=== PATIENT | female | born 1970 | race Caucasian/White ===

== ENCOUNTER 2020-03-17 15:45 | Outpatient (CLI) | payer OTHER, SELFPAY ==
--- NOTE | ~2020-03-17 | MM_ITS ---
EXAMINATION: MM screening [facility] BI w francia HISTORY: Screening mammogram TECHNIQUE: Craniocaudal and mediolateral oblique 3-D tomosynthesis images were obtained and synthetic 2-D images were generated. CAD analysis was submitted and interpreted. COMPARISON: 02/17/2018, 12/14/2016, 10/30/2015 bilateral digital screening mammogram examinations BREAST PARENCHYMAL COMPOSITION: The breasts are heterogeneously dense, which may obscure small masses . FINDINGS: There is no evidence of suspicious mass, calcification, or architectural distortion to sugg est malignancy in either breast. There has been no suspicious interval change. IMPRESSION: 1. No mammographic evidence of malignancy. 2. Recommend routine screening mammography in one year. BI-RADS Category 1: Negative Reviewed, dictated and finalized at location A.
== END 2020-03-17 15:46 | disposition home or self-care (01) ==
LOC: ANHIMG 15:47
PROVIDERS: PCP Family Medicine; Visit Provider Obstetrics & Gynecology
DX: Z12.31 Encounter for screening mammogram for malignant neoplasm of breast (principal)
CPT/HCPCS: 77063; 77067

== ENCOUNTER 2021-05-12 07:29 | Outpatient (CLI) | payer OTHER, SELFPAY ==
--- NOTE | ~2021-05-12 | MM_ITS ---
EXAMINATION: MM screening [facility] BI w francia HISTORY: Screening mammogram TECHNIQUE: Craniocaudal and mediolateral oblique 3-D tomosynthesis images were obtained and synthetic 2-D images were generated. CAD analysis was submitted and interpreted. COMPARISON: 03/17/2020, 02/13/2018, 12/14/2016 bilateral screening mammogram examinations BREAST PARENCHYMAL COMPOSITION: There are scattered areas of fibroglandular density. FINDINGS: Stable circumscribed benign-appearing right upper outer quadrant intramammary lymph nodes. There is no evidence of suspicious mass, calcification, or architectural distortion to suggest malign veronica in either breast. There has been no suspicious interval change. IMPRESSION: 1. No mammographic evidence of malignancy. 2. Recommend routine screening mammography in one year. BI-RADS Category 2: Benign finding(s). Reviewed, dictated and finalized at location A. LTALK DEVELOPER
== END 2021-05-12 07:30 | disposition home or self-care (01) ==
LOC: ANHIMG 07:33
PROVIDERS: PCP Nurse Practitioner; Visit Provider Obstetrics & Gynecology
DX: Z12.31 Encounter for screening mammogram for malignant neoplasm of breast (principal)
CPT/HCPCS: 77063; 77067

== ENCOUNTER 2022-08-06 08:02 | Emergency (ER) | payer OTHER, SELFPAY ==
[2022-08-06 08:11] VITALS: BP 113/88; PULSE 111; RESP 16; TEMP 37.1; O2SAT 97
--- NOTE | 2022-08-06 08:19 | ED.URI ---
HPI - URI/Sore Throat General Chief Complaint: Upper Respiratory Infection Stated Complaint: congestion, cough,sinus pressure,fever Time Seen by Provider: 08/06/22 08:20 Source: patient and RN notes reviewed Mode of arrival: ambulatory Limitations: no limitations History of Present Illness HPI Narrative: 51-year-old female presented for complaint of cough for 5 days. She endorses last night she started with sinus pressure and congestion, and fever up to 101.5 this morning. She states the cough is nonproductive, croupy, and endorses left rib pain with coughing. She endorses occasional shortness of breath only related to coughing spells. She denies dizziness, fatigue, wheezing, nausea, vomiting, diarrhea. He is taking Delsym, ibuprofen, and aches for symptoms. She endorses sick contacts last week. Has tested negative x3 for covid at home. MD elicited complaint: cough Related Data Allergies Allergy/AdvReac Type Severity Reaction Status Date / Time Penicillins Allergy Unknown HIVES/SWELL Verified 08/06/22 08:11 ING Sulfa (Sulfonamide Allergy Unknown HIVES/SWELL Verified 08/06/22 08:11 Antibiotics) ING MACROLIDES AdvReac Unknown Unknown Uncoded 08/06/22 08:11 Review of Systems Review of Systems: CONSTITUTIONAL: Denies malaise, chills, sweats EYES: Denies visual changes, redness, or discharge ENT: Reports rhinorrhea, congestion, sinus pain, denies otalgia, sore throat CARDIOVASCULAR: Denies chest pain, palpitations, edema RESPIRATORY: Reports cough, post nasal drainage. Denies dyspnea GASTROINTESTINAL: Denies abdominal pain, nausea, vomiting, diarrhea SKIN: Denies rash or itching PMFSH Past Medical History Medical History Hearing impaired Hyperlipidemia Hypothyroidism Surgical History Surgical History History of repair of ACL Family History Family History Grandparent Cancer of tongue Diabetes mellitus Heart disease Alcohol abuse Father Diabetes mellitus Heart disease Hypertension Mother Hypertension Social History Social History Smoking status: Never smoker Second hand tobacco smoke exposure: No Alcohol intake: current Drinks per week: 1 Substance use: never Substance use type: does not use Living arrangements: with family Occupation/Education: occupation Gender identity (if verbalized by the patient): Female Sexual Orientation (if Verbalized by the Patient): Straight or Heterosexual Spiritual care concerns: Yes (Patient would be ok with talking.) Agree to blood products: Yes Exam Narrative: GENERAL: Ill-appearing, nontoxic EYES: conjunctivae clear ENT: Mucous membranes moist. Oropharynx erythematous without lesions or exudate NECK: Supple. No lymphadenopathy CHEST: Clear to auscultation, breath sounds equal. No wheezing, rhonchi, rales, or stridor. No respiratory distress, speaks in full sentences. ABD: Soft flat nontender HEART: Regular rate and rhythm. No murmur heard. SKIN: Warm, dry, no rash. MUSC: Ribs nontender with palpation Course Course Emergency Course: Patient is aware of diagnosis, understands and agrees to treatment plan. Anticipatory guidance given. Patient agrees to follow-up as directed and is aware of reasons to seek care at the emergency department. Portions of this record may have been created with voice recognition software Level of Care: Express Care Visit Vital Signs Vital signs: Vital Signs Temperature 98.7 F 08/06/22 08:11 Pulse Rate 111 H 08/06/22 08:11 Respiratory Rate 16 08/06/22 08:11 Blood Pressure 113/88 08/06/22 08:11 Pulse Oximetry 97 08/06/22 08:11 Temperature 98.7 F 08/06/22 08:11 Pulse Rate 111 H 08/06/22 08:11 Respiratory Rate 16 08/06/22 08:11 Blood Pressure 11
== END 2022-08-06 08:32 | disposition home or self-care (01) ==
PROVIDERS: Emergency Provider Nurse Practitioner Family
DX: J40 Bronchitis, not specified as acute or chronic (principal); E78.5 Hyperlipidemia, unspecified; E03.9 Hypothyroidism, unspecified
CPT/HCPCS: 99213; G0463

== ENCOUNTER 2023-04-13 14:16 | Outpatient (CLI) | payer OTHER, SELFPAY ==
--- NOTE | ~2023-04-13 | MM_ITS ---
EXAMINATION: MM screening [facility] BI w francia HISTORY: Screening mammogram TECHNIQUE: Craniocaudal and mediolateral oblique 3-D tomosynthesis images were obtained and synthetic 2-D images were generated. CAD analysis was submitted and interpreted. COMPARISON: 05/12/2021, 03/17/2020, 02/17/2018 BREAST PARENCHYMAL COMPOSITION:There are scattered areas of fibroglandular density. FINDINGS: Stable circumscribed mass at the lower, subareolar left breast. No suspicious mass, calcifi cation, or architectural distortion are identified in either breast to suggest malignancy. There has been no suspicious interval change. IMPRESSION: No mammographic evidence of malignancy. Recommend routine screening mammography in one year. BI-RADS Category 2: Benign finding(s). Reviewed, dictated and finalized at [facility].
== END 2023-04-13 14:17 | disposition home or self-care (01) ==
LOC: ANHIMG 14:20
PROVIDERS: PCP Nurse Practitioner; Visit Provider Obstetrics & Gynecology
DX: Z12.31 Encounter for screening mammogram for malignant neoplasm of breast (principal)
CPT/HCPCS: 77063; 77067

== ENCOUNTER 2024-06-11 07:22 | Outpatient (CLI) | payer BC, SELFPAY ==
--- NOTE | ~2024-06-11 | MM_ITS ---
EXAMINATION: MM screening [facility] BI w francia HISTORY: Screening TECHNIQUE: Craniocaudal and mediolateral oblique 3-D tomosynthesis images were obtained and synthetic 2-D images were generated. CAD analysis was submitted and interpreted. COMPARISON: Comparison to multiple prior studies sequentially, with oldest reviewed study dated 10/29. BREAST PARENCHYMAL COMPOSITION: Not dense: There are scattered areas of fibroglandular density. FINDINGS: There is a focal asymmetry in the lower inner quadrant of the right breast anteriorly. The left breast is stable without evidence for malignancy. IMPRESSION: 1. Right breast asymmetry. 2. Additional mammographic views and possible breast ultrasound are recommended. BI-RADS Category 0: Incomplete: Needs additional imaging evaluation. Reviewed, dictated and finalized at location B. UIT CLERK IMPRESSION: 1. Right breast asymmetry. 2. Additional mammographic views and possible breast ultrasound are recommended . BI-RADS Category 0: Incomplete: Needs additional imaging evaluation.
--- OUTSIDE RECORDS SUMMARY | 2024-06-16 17:15 | XMS_ITS | Encounter Summary ---
Author Organization [facility] Address [address] [place] [address]. [place], [place] [id number] [place] [address] Care Team Providers Care Cloth Dye Range Operator Name Role Phone Saumya Wells NP Primary Care Provider [phone] [phone] Encounter Details Date Type Department Care Team (Late st Contact Info) Description 06/05/2024 7:30 AM COMPUTER DESIGNER Laboratory Only [facility] Medical Group Family Medicine [facility] [address] [facility] [address] [place] [address] Saumya Wells, WHIT[place] [address] [place] [address] Social History Tobacco Use Types Packs/Day Years Used Date Smoking Tobacco: Never Smokeless Tobacco: Never Alcohol Use Standard Drinks/Week Comments Not Currently 1 (1 standard drink = 0.6 oz pur e alcohol) Not every week PHQ-2 Answer Date Recorded Patient Health Questionnaire-2 Score 2 05/09/2024 Comments No Sex and Gender Information Value Date Recorded Sex Assigned at Not on file Legal Sex Female 9:29 AM COMPUTER DESIGNER Gender Identity Not on file Sexual Orientation Not on file documented as of this encounter Plan of Treatment Not on file documented as of this encounter Procedures Procedure Name Priority Date/Time Associated Diagnosis Comments VENIPUNC ARM DRAW Routine 06/05/2024 7:2 7 AM COMPUTER DESIGNER Screening for endocrine, metabolic and immunity disorder Encounter for wellness examination in adult Hyperlipidemia, unspecified hyperlipidemia type TSH W/REFLEX Routine 06/05/2024 7:25 AM COMPUTER DESIGNER Hypothyroidism, unspecified type COMPREHENSIVE METABOLIC PANEL Routine 06/05/2024 7:25 AM COMPUTER DESIGNER Screening for endocrine, metabolic and immunity disorder LIPID PANEL Routine 06/05/2024 7:25 AM COMPUTER DESIGNER Hyperlipidemia, unspecified hyperlipidemia type CBC W/DIFF AUTOMATED Routine 06/05/2024 7:25 AM COMPUTER DESIGNER Screening for endocrine, metabolic and immunity disorder THYROXINE, FREE (FT4) Routine 06/05/2024 7:25 AM COMPUTER DESIGNER documented in this encounter Results * THYROXINE, FREE (FT4) (06/05/2024 7:25 AM COMPUTER DESIGNER) Pathologist [facility] [place] FREE T4 0.97 0.76 - 1.46 NG/DL 06/05/2024 3:53 PM COMPUTER DESIGNER [facility] 06/05/2024 7:25 AM COMPUTER DESIGNER us Saumya Wells OPERATOR CONTROL ROOM LABORATORY Final Res ult [facility] [address] [place] [address], * (ABNORMAL) CBC W/DIFF AUTOMATED (06/05/2024 7:25 AM COMPUTER DESIGNER) [facility] WBC 6.90 4.00 - 10.80 x10'3/uL 06/05/2024 2:49 PM COMPUTER DESIGNER [facility] RBC 4.71 4.10 - 5.40 x10'6/uL 06/05/2024 2:49 PM COMPUTER DESIGNER [facility] HGB 14.5 12.0 - 16.0 G/DL 06/05/2024 2:49 PM COMPUTER DESIGNER [facility] HCT 42.9 36.0 - 47.0 % 06/05/2024 2:49 PM COMPUTER DESIGNER [facility] MCV 91.1 78.0 - 100.0 FL 06/05/2024 2:49 PM [facility] MCH 30.8 27.0 - 31.0 PG 06/05/2024 2:49 PM [facility] MCHC 33.8 33.0 - 36.0 G/DL 06/05/2024 2:49 PM [facility] RDW 12.7 11.5 - 14.5 % 06/05/2024 2:49 PM [facility] PLT 163 150 - 350 x10'3/uL 06/05/2024 2:49 PM [facility] MPV 11.7(H) 7.4 - 10.4 FL 06/05/2024 2:49 PM [facility] DIFFERENTIAL TYPE AUTOMATED DIFFERENTIAL 06/05/2024 2:49 PM [facility] NEUTROPHILS % 53.6 % 06/05/2024 2:49 PM [facility] LYMPHOCYTES % 37.0 % 06/05/2024 2:49 PM [facility] MONOCYTES % 6.8 % 06/05/2024 2:49 PM [facility] EOSINOPHILS % 2.2 % 06/05/2024 2:49 PM [facility] BASOPHILS % 0.3 % 06/05/2024 2:49 PM [facility] IMMATURE GRANS % 0.1 % 06/05/2024 2:49 PM [facility] ABS. NEUTROPHILS 3.70 1.60 - 8.30 x10'3/uL 06/05/2024 2:49 PM [facility] ABS. LYMPHOCYTES 2.55 0.80 - 4.70 x10'3/uL 06/05/2024 2:49 PM [facility] ABS. MONOCYTES 0.47 0.00 - 1.50 x10'3/uL 06/05/2024 2:49 PM [facility] ABS. EOSINOPHILS 0.15 0.00 - 0.40 x10'3/uL 06/05/2024 2:49 PM COMPUTER DESIGNER [facility] ABS. BASOPHILS 0.02 0.00 - 0.20 x10'3/uL 06/05/2024 2:49 PM COMPUTER DESIGNER [facility] ABS. IMMATURE GRANULOCYTES 0.01 0.00 - 0.03 x10'3/uL 06/05/2024 2:49 PM COMPUTER DESIGNER [facility] 06/05/2024 7:25 AM COMPUTER DESIGNER us Saumya Wells OPERATOR CONTROL ROOM LABORATORY Final Res ult [facility] [place] [address] [place] [address], * (ABNORMAL) COMPREHENSIVE METABOLIC PANEL (06/05/2024 7:25 AM COMPUTER DESIGNER) [facility] SODIUM S/P/B 143 136 - 145 MMOL/L 06/05/2024 2:54 PM COMPUTER DESIGNER [facility] POTASSIUM S/P/B 4.3 3.5 - 5.1 MMOL/L 06/05/2024 2:54 PM COMPUTER DESIGNER [facility] CHLORIDE S/P/B 106 98 - 107 MMOL/L 06/05/2024 2:54 PM COMPUTER DESIGNER [facility] CO2 31.5 21 - 32 MMOL/L 06/05/2024 2:54 PM COMPUTER DESIGNER [facility] GLUCOSE 99 70 - 99 MG/DL 06/05/2024 2:54 PM COMPUTER DESIGNER [facility] BUN 16 7 - 18 MG/DL 06/05/2024 2:54 PM COMPUTER DESIGNER [facility] CREATININE S/P/B 0.90 0.55 - 1.02 MG/DL 06/05/2024 2:54 PM COMPUTER DESIGNER [facility] CALCIUM S/P/B 9.1 8.4 - 10.5 MG/DL 06/05/2024 2:54 PM [facility] [place] BILIRUBIN TOTAL S/P/B 0.5 0.2 - 1.0 MG/DL 06/05/2024 2:54 PM [facility] ALKALINE PHOSPHATASE S/P/B 97 41 - 108 U/L 06/05/2024 2:54 PM [facility] AST 26 15 - 37 U/L 06/05/2024 2:54 PM [facility], [place] ALT 46 14 - 59 U/L 06/05/2024 2:54 PM [facility] TOTAL PROTEIN S/P/B 6.7 6.4 - 8.2 G/DL 06/05/2024 2:54 PM [facility] ALBUMIN S/P/B 3.7 3.4 - 5.0 G/DL 06/05/2024 2:54 PM [facility] ANION GAP 5.5 5 - 15 MMOL/L 06/05/2024 2:54 PM [facility] Comment:REFERENCE RANGE NOT ESTABLISHED OSMOLALITY (CALC) 297 MOSM/KG 024 2:54 PM [facility] Comment:REFERENCE RANGE NOT ESTABLISHED GFR ESTIMATE 76(L) >90 ML/MIN/1. 73 M2 06/05/2024 2:54 PM [facility] GFR NOTES GFR REFERENCE S: 06/05/2024 2:54 PM [facility] Comment: THE ESTIMATED GFR IS CALCULATED USING THE 2020 CKD-EPI EQUATION. THE FOLLOWING CATEGORIES FOR GRADING RENAL FUNCTION ARE RECOMMENDED BY THE INTERNATIONAL SOCIETY OF NEPHROLOGY (KDIGO 2012 CLINICAL PRACTICE GUIDELINE). G1,NORMAL OR HIGH: >89 ml/min/1.73 m2 G2,MILDLY DECREASED: 60-89 ml/min/1.73 m2 G3A,MILDLY TO MODERATELY DECREASED: 45-59 ml/min/1.73 m2 G3B,MODERATELY TO SEVERELY DECREASED: 30-44 ml/min/1.73 m2 G4,SEVERELY DECREASED: 15-29 ml/min/1.73 m2 G5,KIDNEY FAILURE: <15 ml/min/1.73 m2 06/05/2024 7:25 AM COMPUTER DESIGNER Saumya Wells OPERATOR CONTROL ROOM LABORATORY Final Res ult Performing Organization Address City/[facility]/ZIP Co de Phone Number [facility] [address] [place] [address], [place] [phone] * (ABNORMAL) LIPID PANEL (06/05/2024 7:25 AM COMPUTER DESIGNER) CHOLESTEROL 180 <200 MG/DL 06/05/2024 2:54 PM COMPUTER DESIGNER [facility] TRIGLYCERIDES 159(H) <150 MG/DL 06/05/2024 2:54 PM COMPUTER DESIGNER [facility] HDL 56 >40 MG/DL 06/05/2024 2:54 PM COMPUTER DESIGNER [facility] LDL-C 92 <100 MG/DL 06/05/2024 2:54 PM COMPUTER DESIGNER [facility] VLDL CALCULATION 32(H) 5 - 28 MG/DL 06/05/2024 2:54 PM COMPUTER DESIGNER [facility] CHOL/HDL RATIO 3.2 0.0 - 4.0 06/05/2024 2:54 PM COMPUTER DESIGNER [facility] LDL/HDL 1.6 0.41 - 2.13 06/05/2024 2:54 PM COMPUTER DESIGNER [facility] NON HDL CHOLESTEROL 124 <140 MG/DL 06/05/2024 2:54 PM COMPUTER DESIGNER [facility] 06/05/2024 7:25 AM COMPUTER DESIGNER Saumya Wells OPERATOR CONTROL ROOM LABORATORY Final Res ult Performing Organization Address City/[facility]/ZIP Co de Phone Number [facility] [address] [place] [address], * (ABNORMAL) TSH W/REFLEX (06/05/2024 7:25 AM COMPUTER DESIGNER) TSH 3.882(H) 0.358 - 3.740 uIU/ML 06/05/2024 2:54 PM COMPUTER DESIGNER [facility] 06/05/2024 7:25 AM COMPUTER DESIGNER us Saumya Wells OPERATOR CONTROL ROOM LABORATORY Final Res ult -[facility] [address] [place] [address], documented in this encounter Visit Diagnoses Diagnosis Screening for endocrine, metabolic and immunity disorder- Primary Encounter for wellness examination in adult Hyperlipidemia, unspecified hyperlipidemia type Hypothyroidism, unspecified type documented in this encounter Additional Health Concerns Assessment Noted Time PHQ-9 Depression Total Score: 5 05/09/20 24 2:00 PM COMPUTER DESIGNER documented as of this encounter Care Teams Cloth Dye Range Operator Relationship Specialty Start Date End Date Saumya Wells NP [address] [place] [address] PCP - General NURSE PRACTITIONER 07/02/20 documented as of this encounter
--- OUTSIDE RECORDS SUMMARY | 2024-06-16 17:15 | XMS_ITS | Encounter Summary ---
Author Organization [facility] Address [address] [place] [address]. [place] [address] Care Team Providers Care Credit Resolution Representative Name Role Phone Saumya Wells NP Primary Care Provider [phone] Reason for Visit * Reason Comments Pathology (SCAN) Encounter Details Date Type Department Care Team ([facility] Contact Info) Description 04/23/2024 Scan HEALTH INFO SRVCS Scanned, Doc Med Group Pathology (SCAN) Social History Tobacco Use Types Packs/Day Years Used Date Smoking Tobacco: Never Smokeless Tobacco: Never Alcohol Use Standard Drinks/Week Comments Yes 1 (1 standard drink = 0.6 oz pur e alcohol) Not every week PHQ-2 Answer Date Recorded Patient Health Questionnaire-2 Score 2 05/09/2024 Comments No Sex and Gender Information Value Date Recorded Sex Assigned at Not on file Legal Sex Female 9:29 AM SEMICONDUCTOR TESTING GROUP LEADER Gender Identity Not on file Sexual Orientation Not on file documented as of this encounter Plan of Treatment Not on file documented as of this encounter Procedures Procedure Name Priority Date/Time Associated Diagnosis Comments OUTSIDE CYTOPATH CERV/VAG IN TERPRET (PAP) 04/23/2024 documented in this encounter Results * PAP SMEAR WITH HPV (04/23/2024) 04/23/2024 us Doc Med Group Scanned SCANNING Final Resu lt documented in this encounter Visit Diagnoses Not on filedocumented in this encounter Additional Health Concerns Assessment Noted Time PHQ-9 Depression Total Score: 3 04/28/20 23 8:27 AM CDT documented as of this encounter Care Teams Credit Resolution Representative Relationship Specialty Start Date End Date Saumya Wells NP [address] [place] [address] PCP - General NURSE PRACTITIONER 07/02/20 documented as of this encounter
--- OUTSIDE RECORDS SUMMARY | 2024-06-16 17:15 | XMS_ITS | Encounter Summary ---
Author Organization [facility] Address [address] [place] [address]. [place], [place] [id number] [place] [address] Care Team Providers Care Bladder Changer Name Role Phone Saumya Wells NP Primary Care Provider [phone] [phone] Encounter Details Date Type Department Care Team (Late st Contact Info) Description 02/22/2024 [email or web address] Message Enc [facility] Medical Group Family Medicine - [place] [address] [facility] [address] [place], [place] [address] Saumya Wells NP [address] [place], [place] [address] follow up on office visit tomorrow Social History Tobacco Use Types Packs/Day Years Used Date Smoking Tobacco: Never Smokeless Tobacco: Never Alcohol Use Standard Drinks/Week Comments Yes 1 (1 standard drink = 0.6 oz pur e alcohol) Not every week PHQ-2 Answer Date Recorded Patient Health Questionnaire-2 Score 2 04/28/2023 Comments No Sex and Gender Information Value Date Recorded Sex Assigned at Not on file Legal Sex Female 9:29 AM TRAVERSE ROD ASSEMBLER Gender Identity Not on file Sexual Orientation Not on file documented as of this encounter Plan of Treatment Not on file documented as of this encounter Visit Diagnoses Not on filedocumented in this encounter Additional Health Concerns Assessment Noted Time PHQ-9 Depression Total Score: 3 04/28/20 23 8:27 AM CDT documented as of this encounter Care Teams Bladder Changer Relationship Specialty Start Date End Date Saumya Wells NP [address] [place] [address] PCP - General NURSE PRACTITIONER 07/02/20 documented as of this encounter
--- OUTSIDE RECORDS SUMMARY | 2024-06-16 17:15 | XMS_ITS | Encounter Summary ---
Author Organization [facility] [place] Address [address] [place] [address]. [place], [place] [id number] [place] [address] Care Team Providers Care Regional Marketing Director Name Role Phone Saumya Wells NP Primary Care Provider [phone] Reason for Visit * Reason Comments Annual Encounter Details Date Type Department Care Team (Late st Contact Info) Description 04/28/2023 8:20 AM CDT Office Visit [facility] Family Medicine [facility] [address] [place] [id number] Saumya Wells, WHIT[place] [address] [place] [address] [id number] Annual Social History Tobacco Use Types Packs/Day Years [...] on file 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 Gender Identity Not on file Sexual Orientation Not on file documented as of this encounter Last Filed Vital Signs Vital Sign Reading Time Taken Comments Blood Pressure 123/78 04/28/2023 8:14 AM CDT Pulse 76 04/28/2023 8:14 AM CDT Temperature 36.6 ??C (97.9 ??F) 04/28/2023 8:14 AM CD T Respiratory Rate 18 04/28/2023 8:14 AM CDT Oxygen Saturation 98% 04/28/2023 8:14 AM CDT Inhaled Oxygen Concentration - - Weight 81.3 kg (179 lb 3.2 oz) 04/28/2023 8:14 A M CDT Height 157.5 cm (5' 2 ) 04/28/2023 8:14 AM CDT Body Mass Index 32.78 04/28/2023 8:14 AM CDT documented in this encounter Progress Notes * Saumya Wells NP - 04/28/2023 8:20 AM CDT Images from the original note were not included. Annual Health Maintenance Exam Encounter Date: 04/28/2023 Reason for Visit: Annual Health Maintenance Exam Annual History of Present Illness: Evelia Cedeno is a 52-year-old female with hx of hypothyroidism, hyperlipidemia, and anxiety and depression here for her annual exam. She reports doing well. She is going to begin HRT by her crime scene photographer to help with menopausal symptoms. Labs completed in March Reported Health: good Immunizations up to date: No. Due for Tdap Healthy Diet: Yes Regular Exercise: Yes Weight Concern: Yes Cancer Screening Up To Date: Yes follows with Dr. Wesley for her well women care. Up to date on mammogram and pap at this time. Is up to date on colon cancer screen Tobacco use: No Alcohol use: No Dental exam: Yes Eye exam: Yes ROS: Review of Systems Constitutional: Negative for chills, diaphoresis, fever, malaise/fatigue and weight loss. HENT: Negative for congestion, ear discharge, ear pain, hearing loss, nosebleeds, sinus pain, sore throat and tinnitus. Eyes: Negative for blurred vision, double vision, photophobia, pain, discharge and redness. Respiratory: Negative for cough, hemoptysis, sputum production, shortness of breath, wheezing and stridor. Cardiovascular: Negative for chest pain, palpitations, orthopnea, claudication, leg swelling and PND. Gastrointestinal: Negative for abdominal pain, blood in stool, constipation, diarrhea, heartburn, melena, nausea and vomiting. Genitourinary: Negative for dysuria, flank pain, frequency, hematuria and urgency. Musculoskeletal: Negative for back pain, falls, joint pain, myalgias and neck pain. Skin: Negative for itching and rash. Neurological: Negative for dizziness, tingling, tremors, sensory change, speech change, focal weakness, seizures, loss of consciousness, weakness and headaches. Endo/Heme/Allergies: Negative for environmental allergies and polydipsia. Does not bruise/bleed easily. Psychiatric/Behavioral: Negative for depression, hallucinations, memory loss, substance abuse and suicidal ideas. The patient is not nervous/anxious and does not have insomnia. Medications: Outpatient Medications Marked as Taking for the 04/28/23 encounter (Office Visit) with Saumya Wells NP Medication Sig Dispense Refill levothyroxine (SYNTHROID) 100 MCG tablet Take 1 tablet (100 mcg total) by mouth daily. 90 tablet 1 rosuvastatin (CRESTOR) 40 MG tablet Take 1 tablet (40 mg total) by mouth nightly at bedtime. 90 tablet 0 Allergies: Review of patient's allergies indicates: Allergen Reactions Penicillins Hives and Swelling Medical History: Past Medical History: Diagnosis Date Anxiety and depression Colon cancer screening 06/2020 negative cologuard repeat in 3 years H/O mammogram 05/12/2021 normal,repeat in 1 year, ordered by Dr. Galvez Hyperlipidemia Hypothyroidism Surgical History: Past Surgical History: Procedure Laterality Date ANTERIOR CRUCIATE LIGAMENT REPAIR 2011 Social History: Social History Tobacco Use Smoking status: Never Smokeless tobacco: Never Vaping Use Vaping Use: Never used Substance Use Topics Alcohol use: Yes Alcohol/week: 1.0 standard drink Types: 1 Standard drinks or equivalent per week Comment: Not every week Drug use: Never Family History: Family History Problem Relation Name Age of Onset Hypertension Mother RD Arthritis Mother RD Early Hearing Loss Mother RD Hypertension Father TK Hyperlipidemia Father TK Diabetes Father TK Heart Disease Father TK Diabetes Maternal Grandmother HF Heart Disease Maternal Grandmother HF Other (tongue cancer) Maternal Grandmother HF Cancer Maternal Grandmother HF Early Hearing Loss Maternal Grandmother HF Heart Disease Paternal Grandfather BF Alcohol Abuse Paternal Grandfather BF Drug Abuse Maternal Uncle RF Early Hearing Loss Maternal Uncle RF PE: Filed Vitals: 04/28/23 0814 BP: 123/78 Pulse: 76 Resp: 18 Temp: 97.9 ??F (36.6 ??C) TempSrc: Temporal SpO2: 98% Weight: 81.3 kg (179 lb 3.2 oz) Height: 1.575 m (5' 2 ) Physical Exam Constitutional: General: She is not in acute distress. Appearance: Normal appearance. She is well-developed. She is obese. She is not ill-appearing, toxic-appearing or diaphoretic. HENT: Head: Normocephalic and atraumatic. Right Ear: Hearing, tympanic membrane, ear canal and external ear normal. Left Ear: Hearing, tympanic membrane, ear canal and external ear normal. Nose: Nose normal. Mouth/Throat: Mouth: Mucous membranes are moist. Pharynx: Uvula midline. No oropharyngeal exudate or posterior oropharyngeal erythema. Eyes: General: Lids are normal. Lids are everted, no foreign bodies appreciated. No scleral icterus. Extraocular Movements: Extraocular movements intact. Pupils: Pupils are equal, round, and reactive to light. Neck: Thyroid: No thyromegaly. Vascular: No carotid bruit. Trachea: No tracheal deviation. Cardiovascular: Rate and Rhythm: Normal rate and regular rhythm. Pulses: Normal pulses. Heart sounds: Normal heart sounds. No murmur heard. Pulmonary: Effort: Pulmonary effort is normal. No respiratory distress. Breath sounds: Normal breath sounds. No wheezing or rales. Chest: Chest wall: No tenderness. Abdominal: General: Bowel sounds are normal. There is no distension. Palpations: Abdomen is soft. There is no mass. Tenderness: There is no abdominal tenderness. There is no guarding or rebound. Hernia: No hernia is present. Musculoskeletal: General: No tenderness or deformity. Cervical back: Normal range of motion and neck supple. No edema. Right lower leg: No edema. Left lower leg: No edema. Lymphadenopathy: Cervical: No cervical adenopathy. Skin: General: Skin is warm and dry. Capillary Refill: Capillary refill takes less than 2 seconds. Coloration: Skin is not pale. Findings: No erythema or rash. Neurological: General: No focal deficit present. Mental Status: She is alert and oriented to person, place, and time. Deep Tendon Reflexes: Reflexes are normal and symmetric. Psychiatric: Mood and Affect: Mood normal. Behavior: Behavior normal. Thought Content: Thought content normal. Judgment: Judgment normal. Screening forms: PHQ-9: PHQ-9: 03/31/2022 8:55 AM 04/28/2023 8:27 AM PHQ2/PHQ 9 DEPRESSION SCREEN QUESTIONAIRE Little interest or pleasure in doing things Several days Feeling down, depressed, or hopeless Several days Patient Health Questionnaire-2 Score 2 Trouble falling or staying asleep, or sleeping too much Not at all Feeling tired or having little energy Not at all Poor appetite or overeating Not at all Feeling bad about yourself - or that you are a failure or have let yourself or your family down Notat all Trouble concentrating on things, such as reading the newspaper or watching television Several days Moving or speaking so slowly that other people could have noticed? Or the opposite - being so fidgety or restless that you have been moving around a lot more than usual. Not at all Thoughts that you would be better off or hurting yourself in some way Not at all Patient Health Questionnaire-9 Score 3 How difficult have these problems made it for you to do your work, take care of things at home, or get along with other people? Somewhat difficult LITTLE INTEREST OR PLEASURE IN DOING THINGS 2-More than half the days FEELING DOWN, DEPRESSSED,OR HOPELESS 1-Several Days PHQ2 DEPRESSION TOTAL SCORE 3 TROUBLE FALLING OR STAYING ASLEEP OR SLEEPING TOO MUCH 2-More than half the days FEELING TIRED OR HAVING LITTLE ENERGY 2-More than half the days POOR APPETITE OR OVEREATING 1-Several Days FEELING BAD ABOUT YOURSELF 1-Several Days TROUBLE CONCENTRATING ON THINGS 2-More than half the days MOVING OR SPEAKING SO SLOWLY THAT OTHER PEOPLE COULD HAVE NOTICED 0-Not at All THOUGHTS THAT YOU WOULD BE BETTER OFF 0-Not at All DEPRESSION SCREENING TOTAL SCORE 11 IF YOU CHECKED OFF ANY PROBLEMS Somewhat difficult ANNABEL-7 (Generalized Anxiety Disorder) Screening 07/07/2020 2:20 PM 04/28/2023 8:28 AM ANNABEL-7 Feeling nervous, anxious, or on edge 1 Not being able to stop or control worrying 0 Worrying too much about different things 1 Trouble relaxing 0 Being so restless that it is hard to sit still 0 Becoming easily annoyed or irritable 2 Feeling afraid as if something awful might happen 0 ANNABEL-7 Total Score 4 How difficult have these problems made it for you to do your work, take care of things at home, or get along with other people? Somewhat difficult Feeling nervous, anxious and on edge 1 - several days Not being able to stop or control worrying 0 - not at all Worrying too much about different things 1 - several days Trouble Relaxing 1 - several days Being so restless that it's hard to sit still 0 - not at all Becoming easily annoyed or irritable 1 - several days Feeling afraid as if something awful might happen 1 - several days Total Score 5 If you checked off any problems, how difficult have those problems made it for you to do your work take care of things at home or get along with other people? somewhat difficult Diagnoses, Recommendations, and Plan 1. Annual physical exam 2. Postmenopausal symptoms 3. Hypothyroidism, unspecified type 4. Hyperlipidemia, unspecified hyperlipidemia type 5. Obesity (BMI 30-39.9) Encourage Tdap vaccination. Encourage Shingrix vaccination at local pharmacy. It is a two shot series. 2nd shot is 2-6 months after the first shot. 1. Medications/DME - Continue current medications. 2. Lab/Diagnostics - None. Already completed 3. Education - Current treatment discussed and patient education given as appropriate. 4. Referrals - None needed. 5. RTC - 1 year(s) Encourage following a low fat, low carb diet, encorperate whole foods such as fresh fruits and vegetables and whole grains into your diet, encourage 5 small meals per day. Avoid sugar-sweetened beverages, added sugars, processed meats, refined grains and oils or other processed foods. Encourage to get at least 150 minutes of moderate aerobic activity or 75 minutes of vigorous aerobic activity a week, or a combination of moderate and vigorous activity.Discussed routine labs, preventative screenings, vaccinations, blood pressure, weight at today's visit. Encourage getting dental exam every 6 months and a yearly eye exam or as instructed to do so. Encourage getting at least 8 hours of restful sleep per night. Encourage continual weight loss. SAUMYA WELLS NP 04/28/2023 documented in this encounter Plan of Treatment Not on file documented as of this encounter Visit Diagnoses Diagnosis Annual physical exam Routine general medical examination at a health care facility Postmenopausal symptoms Unspecified menopausal and postmenopausal disorder Hypothyroidism, unspecified type Hyperlipidemia, unspecified hyperlipidemia type Obesity (BMI 30-39.9) Obesity, unspecified documented in this encounter Additional Health Concerns Assessment Noted Time PHQ-9 Depression Total Score: 3 04/28/20 23 8:27 AM CDT documented as of this encounter Care Teams Regional Marketing Director Relationship Specialty Start Date End Date Saumya Wells NP [address] [place] [address] PCP - General NURSE PRACTITIONER 07/02/20 documented as of this encounter
--- OUTSIDE RECORDS SUMMARY | 2024-06-16 17:15 | XMS_ITS | Encounter Summary ---
Author Organization [facility] Address [address] [place] [address]. 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
--- OUTSIDE RECORDS SUMMARY | 2024-06-16 17:15 | XMS_ITS | Encounter Summary ---
Author Organization [facility] Address [address] [place] [address]. 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
--- OUTSIDE RECORDS SUMMARY | 2024-06-16 17:15 | XMS_ITS | Encounter Summary ---
Author Organization [facility] Address [address] [place] [address]. 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
--- OUTSIDE RECORDS SUMMARY | 2024-06-16 17:15 | XMS_ITS | Clinical Summary ---
Author Organization [facility] Address [address] [place] [address]. [place], [place] [id number] [place] [id number] Care Team Providers Care Clinical Admissions Manager Name Role Phone Saumya Wells NP Primary Care Provider [phone] Allergies Active Allergy Reactions Criticality Noted Date Comments Penicillins Hives,Swelling 07/07/2020 Medications levothyroxine (SYNTHROID) 100 MCG tabletIndications:H ypothyroidism, unspecified type Take 1 tablet (100 mcg total) by mouth daily. 90 tablet 1 4 Active rosuvastatin (CRESTOR) 40 MG tabletIndications:H yperlipidemia, unspecified hyperlipidemia type Take 1 tablet (40 mg total) by mouth nightly at bedtime. at bedtime 90 tablet 1 4 Active Active Problems Problem Noted Date Diagnosed Date Obesity (BMI 30-39.9) 04/28/2023 Assessment & Plan (05/09/2024 2:03 PM MANAGER UROLOGY): Encourage diet and lifestyle changes to assist with weight loss. Hyperlipidemia, unspecified hyperlipidemia type 07/07/2020 Overview (05/09/2024): Chronic condition. Currently taking Rosuvastatin 40 mg daily. Tolerates well without side effects. Assessment & Plan (05/09/2024 2:06 PM MANAGER UROLOGY): Chronic condition. Will recheck lipid panel to be sure lipids are within normal range. Encourage following a healthy well balance diet. Limit saturated and trans fats. Encourage to get plenty of lean meats in your diet and grilled fish. Recommend eating at least 2 servings of fruits and vegetables per day. Encourage to limit sugar, processed foods, and large amount of carbohydrates. Hypothyroidism, unspecified type 07/07/2020 Overview (05/09/2024): Chronic condition. Currently taking levothyroxine 100 mcg daily. Assessment & Plan (05/09/2024 2:04 PM MANAGER UROLOGY): Chronic condition. Will check TSH to be sure her current dose is appropirate. Last TSH level reviewed. Vitamin D deficiency 07/07/2020 Anxiety and depression 07/07/2020 Overview (05/09/2024): Stable. Doing ok. Has had increase stressors that shse feels is to be expected. Assessment & Plan (05/09/2024 2:08 PM MANAGER UROLOGY): Stable. Doing ok. PHQ-9 and ANNABEL-7 reviewed. Has had increase stressors that she feels is to be expected. She ill follow up in future if she feels further tx is necessary or not. Encounters Date Type Department Care Team Description 06/05/2024 7:30 AM MANAGER UROLOGY Laboratory Only [address] [place] [address] Saumya Wells NP 06/05/2024 Travel 05/10/[address] [place] [address] Saumya Wells NP Record Request 05/09/2024 1:20 PM MANAGER UROLOGY Office Visit [address] [place] [address] Saumya Wells NP Annual 05/09/2024 Travel 05/04/2024 MyChart Message Enc [address] [place] [address] Saumya Wells NP Flu shot 04/23/2024 Scan [facility] Scanned, [facility] (SCAN) 04/17/2024 Orders Only [address] [place] [address] Pooja Bingham MA 04/10/2024 MyChart Message Enc [facility] [address] [facility] [address] [place] [address] Mychart, [facility] Provider Refill from Last 3 Months Immunizations Name Administration Dates Next Due Fluzone (IIV3, Trivalent, 0. 5 ML Prefilled Syringe) 05/09/2024 Influenza Adult (Generic) 03/20/2023,,04/13/2018, 017,05/06/2014 Family History Medical History Relation Comments Diabetes Father Heart Disease Father Hyperlipidemia Father Hypertension Father Stroke Father TIA in mid 50s Alcohol Abuse Maternal Grandfather Cancer Maternal Grandmother Diabetes Maternal Grandmother Early Hearing Loss Maternal Grandmother Heart Disease Maternal Grandmother tongue cancer Maternal Grandmother Drug Abuse Maternal Uncle Early Hearing Loss Maternal Uncle Arthritis Mother Diabetes Mother Early Hearing Loss Mother Hypertension Mother Alcohol Abuse Paternal Grandfather Heart Disease Paternal Grandfather Relation Status Comments Father Maternal Grandfather Maternal Grandmother Maternal Uncle Mother Paternal Grandfather Social History Tobacco Use Types Packs/Day Years Used Date Smoking Tobacco: Never Smokeless Tobacco: Never Tobacco Cessation:Counseling Given: Not Answered Alcohol Use Standard Drinks/Week Comments Not Currently 1 (1 standard drink = 0.6 oz pur e alcohol) Not every week PHQ-2 Answer Date Recorded Patient Health Questionnaire-2 Score 2 05/09/2024 Comments No Sex and Gender Information Value Date Recorded Sex Assigned at Not on file Legal Sex Female 9:29 AM MANAGER UROLOGY Gender Identity Not on file Sexual Orientation Not on file Last Filed Vital Signs Vital Sign Reading Time Taken Comments Blood Pressure 133/80 05/09/2024 1:22 PM MANAGER UROLOGY Pulse 73 05/09/2024 1:22 PM MANAGER UROLOGY Temperature 37.6 ??C (99.6 ??F) 05/09/2024 1:22 PM CS T Respiratory Rate 16 05/09/2024 1:22 PM MANAGER UROLOGY Oxygen Saturation 96% 05/09/2024 1:22 PM MANAGER UROLOGY Inhaled Oxygen Concentration - - Weight 85.4 kg (188 lb 3.2 oz) 05/09/2024 1:22 P M MANAGER UROLOGY Height 157.5 cm (5' 2 ) 05/09/2024 1:22 PM MANAGER UROLOGY Body Mass Index 34.42 05/09/2024 1:22 PM MANAGER UROLOGY Plan of Treatment Health Maintenance Due Date Last Done Comments Cervical Cancer Screening Pap Smear (Age 30 to 64) Every 3 Years 1969 DTaP, Tdap and Td Vaccines (1 - Tdap) 1988 Hepatitis B Vaccines (1 of 3 - 19+ 3-dose series) 1988 Zoster Vaccines (1 of 2) 2019 Colorectal Cancer Screening FIT-DNA (3 Years) 07/22/2023 07/22/2020 COVID-19 Vaccine (2023- season) 2024 03/26/2022, 12/29/2021, 05/15/2021, Additional history exists Mammogram Screening 04/13/2025 04/13/2023, 05/12/2021, 03/17/2020 Annual Physical 05/09/2025 05/09/2024, 07/2022, 03/31/2022, Additional history exists Cervical Cancer Screening Pap with HPV Testing (Age 30 to 64) Every 5 Years 04/23/2029 04/23/2024 Cervical Cancer Screening with HPV 04/23/2029 Hepatitis C Completed 07/28/2020 Influenza Adult Completed 05/09/2024, 02/26, 03/26/2022, Additional history exists Meningococcal Vaccine Aged Out No laury susu eligible based on patient's age to complete this topic Pneumococcal Vaccine: Pediatrics (0 to 5 Years) and At-Risk Patients (6 to 64 Years) Aged Out No longer eligible based on patient's age to complete this topic RSV Immunizations Under 20 Months Aged Out No longer eligible based on patient's age to complete this topic Procedures Procedure Name Priority Date/Time Associated Diagnosis Comments VENIPUNC ARM DRAW Routine 06/05/2024 7:2 7 AM MANAGER UROLOGY Screening for endocrine, metabolic and immunity disorder Encounter for wellness examination in adult Hyperlipidemia, unspecified hyperlipidemia type THYROXINE, FREE (FT4) Routine 06/05/2024 7:25 AM MANAGER UROLOGY CBC W/DIFF AUTOMATED Routine 06/05/2024 7:25 AM MANAGER UROLOGY Screening for endocrine, metabolic and immunity disorder COMPREHENSIVE METABOLIC PANEL Routine 06/05/2024 7:25 AM MANAGER UROLOGY Screening for endocrine, metabolic and immunity disorder LIPID PANEL Routine 06/05/2024 7:25 AM MANAGER UROLOGY Hyperlipidemia, unspecified hyperlipidemia type TSH W/REFLEX Routine 06/05/2024 7:25 AM MANAGER UROLOGY Hypothyroidism, unspecified type OUTSIDE CYTOPATH CERV/VAG INTERPRET (PAP) 04/23/2024 MAMMOGRAM GENERIC (SCAN ORDER) 04/13/2023 HEPATITIS C ANTIBODY W/RFX TO HCV RNA Routine 07/28/2020 9:08 AM MANAGER UROLOGY COLOGUARD (EXACT SCIENCE) Routine 07/22/2020 7:25 AM MANAGER UROLOGY Screen for colon cancer from Last 3 Months or Most Recently Relevant to Health Maintenance Results * (ABNORMAL) TSH W/REFLEX (06/05/2024 7:25 AM MANAGER UROLOGY) TSH 3.882(H) 0.358 - 3.740 uIU/ML 06/05/2024 2:[address] [facility] 06/05/2024 7:25 AM MANAGER UROLOGY us Saumya Wells NP LABORATORY Final Res ult [facility] [address] [place] [address], [place] [phone] * (ABNORMAL) COMPREHENSIVE METABOLIC PANEL (06/05/2024 7:25 AM MANAGER UROLOGY) SODIUM S/P/B 143 136 - 145 MMOL/L 06/05/2024 2:54 [address]NAGER UROLOGY [facility] POTASSIUM S/P/B 4.3 3.5 - 5.1 MMOL/L 06/05/2024 2:54 PM [facility] CHLORIDE S/P/B 106 98 - 107 MMOL/L 06/05/2024 2:54 PM [facility] CO2 31.5 21 - 32 MMOL/L 06/05/2024 2:54 PM [facility] GLUCOSE 99 70 - 99 MG/DL 06/05/2024 2:54 PM [facility] BUN 16 7 - 18 MG/DL 06/05/2024 2:54 PM MANAGER UROLOGY [facility] CREATININE S/P/B 0.90 0.55 - 1.02 MG/DL 06/05/2024 2:54 PM [facility] CALCIUM S/P/B 9.1 8.4 - 10.5 MG/DL 06/05/2024 2:54 PM MANAGER UROLOGY [facility] BILIRUBIN TOTAL S/P/B 0.5 0.2 - 1.0 MG/DL 06/05/2024 2:54 PM [facility] ALKALINE PHOSPHATASE S/P/B 97 41 - 108 U/L 06/05/2024 2:54 PM [facility] AST 26 15 - 37 U/L 06/05/2024 2:54 PM [facility] ALT 46 14 - 59 U/L 06/05/2024 2:54 PM [facility] TOTAL PROTEIN S/P/B 6.7 6.4 - 8.2 G/DL 06/05/2024 2:54 PM [facility] ALBUMIN S/P/B 3.7 3.4 - 5.0 G/DL 06/05/2024 2:54 PM [facility] ANION GAP 5.5 5 - 15 MMOL/L 06/05/2024 2:54 PM [facility] Comment:REFERENCE RANGE NOT ESTABLISHED OSMOLALITY (CALC) 297 MOSM/KG 024 2:[address]Y [facility] Comment:REFERENCE RANGE NOT ESTABLISHED GFR ESTIMATE 76(L) >90 ML/MIN/1. 73 M2 06/05/2024 2:[address] UROLOGY [facility] GFR NOTES GFR REFERENCE S: 06/05/2024 2:54 PM MANAGER UROLOGY [facility] Comment: THE ESTIMATED GFR IS CALCULATED USING [...] FAILURE: <15 ml/min/1.73 m2 06/05/2024 7:25 AM MANAGER UROLOGY us Saumya Wells NP LABORATORY Final Res ult [facility] [address] [place] [address], * (ABNORMAL) LIPID PANEL (06/05/2024 7:25 AM MANAGER UROLOGY) CHOLESTEROL 180 <200 MG/DL 06/05/2024 2:[address] UROLOGY [facility] TRIGLYCERIDES 159(H) <150 MG/DL 06/05/2024 2:54 [address]NAGER UROLOGY [facility] HDL 56 >40 MG/DL 06/05/2024 2:54 PM [address]NAGER UROLOGY [facility] LDL-C 92 <100 MG/DL 06/05/2024 2:54 [address]NAGER UROLOGY [facility] VLDL CALCULATION 32(H) 5 - 28 MG/DL 06/05/2024 2:54 PM [address]NAGER UROLOGY [facility] CHOL/HDL RATIO 3.2 0.0 - 4.0 06/05/2024 2:54 PM MANAGER UROLOGY [facility] LDL/HDL 1.6 0.41 - 2.13 06/05/2024 2:54 [address]NAGER UROLOGY [facility] NON HDL CHOLESTEROL 124 <140 MG/DL 06/05/2024 2:54 PM MANAGER UROLOGY [facility] 06/05/2024 7:25 AM MANAGER UROLOGY us Saumya Wells PHOSPHORIC ACID OPERATOR LABORATORY Final Res ult [facility] [address] [place] [address], * (ABNORMAL) CBC W/DIFF AUTOMATED (06/05/2024 7:25 AM MANAGER UROLOGY) WBC 6.90 4.00 - 10.80 x10'3/uL 06/05/2024 2:49 [address] UROLOGY [facility] RBC 4.71 4.10 - 5.40 x10'6/uL 06/05/2024 2:49 PM MANAGER UROLOGY [facility] HGB 14.5 12.0 - 16.0 G/DL 06/05/2024 2:49 PM MANAGER UROLOGY [facility] HCT 42.9 36.0 - 47.0 % 06/05/2024 2:49 PM MANAGER UROLOGY [facility] MCV 91.1 78.0 - 100.0 FL 06/05/2024 2:49 PM MANAGER UROLOGY [facility] MCH 30.8 27.0 - 31.0 PG 06/05/2024 2:49 PM MANAGER UROLOGY [facility] MCHC 33.8 33.0 - 36.0 G/DL 06/05/2024 2:49 PM MANAGER UROLOGY [facility] RDW 12.7 11.5 - 14.5 % 06/05/2024 2:49 PM [facility] PLT 163 150 - 350 x10'3/uL 06/05/2024 2:49 PM [facility] MPV 11.7(H) 7.4 - 10.4 FL 06/05/2024 2:49 PM [facility] DIFFERENTIAL TYPE AUTOMATED DIFFERENTIAL 06/05/2024 2:49 PM [facility] NEUTROPHILS % 53.6 % 06/05/2024 2:49 PM [facility] LYMPHOCYTES % 37.0 % 06/05/2024 2:49 PM [facility] MONOCYTES % 6.8 % 06/05/2024 2:49 PM [facility] EOSINOPHILS % 2.2 % 06/05/2024 2:49 PM [facility] BASOPHILS % 0.3 % 06/05/2024 2:49 PM [facility] IMMATURE GRANS % 0.1 % 06/05/2024 2:49 PM [facility] ABS. NEUTROPHILS 3.70 1.60 - 8.30 x10'3/uL 06/05/2024 2:49 PM [facility] ABS. LYMPHOCYTES 2.55 0.80 - 4.70 x10'3/uL 06/05/2024 2:49 PM [facility] ABS. MONOCYTES 0.47 0.00 - 1.50 x10'3/uL 06/05/2024 2:49 PM [facility] ABS. EOSINOPHILS 0.15 0.00 - 0.40 x10'3/uL 06/05/2024 2:49 PM [facility] ABS. BASOPHILS 0.02 0.00 - 0.20 x10'3/uL 06/05/2024 2:49 PM [facility] ABS. IMMATURE GRANULOCYTES 0.01 0.00 - 0.03 x10'3/uL 06/05/2024 2:[address] UR[address]Y [facility] 06/05/2024 7:25 AM MANAGER UROLOGY Saumya Wells PHOSPHORIC ACID OPERATOR LABORATORY Final Res ult Performing Organization Address [facility]/ZIP Co de Phone Number [address] [address], * THYROXINE, FREE (FT4) (06/05/2024 7:25 AM MANAGER UROLOGY) FREE T4 0.97 0.76 - 1.46 NG/DL 06/05/2024 3:[address] UROLOGY [facility] 06/05/2024 7:25 AM MANAGER UROLOGY Saumya Wells PHOSPHORIC ACID OPERATOR LABORATORY Final Res ult Performing Organization Address [facility]/[place] de Phone Number [address] [address], * PAP SMEAR WITH HPV (04/23/2024) 04/23/2024 [facility] Scanned SCANNING Final Resu lt * MAMMOGRAM GENERIC (04/13/2023) Anatomical Region Laterality Modality Other 04/13/2023 [facility] Scanned SCANNING Final Resu lt * HEPATITIS C ANTIBODY W/RFX TO HCV RNA (07/28/2020 9:08 AM MANAGER UROLOGY) HEPATITIS C AB NON-REACTI VE NON-REACT MAC [facility] SIGNAL TO CUTOFF 0.01 <[address] [facility] Comment: HCV antibody was non-reactive. There is no laboratory evidence of HCV infection. In most cases, no further action is required. However, if recent HCV exposure is suspected, a test for HCV RNA (test code 32062) is suggested. For additional information please refer to http://Argyle Data.Fantoo/faq/DAV97z0 (This link is being provided for informational/ educational purposes only.) 07/28/2020 9:08 AM MANAGER UROLOGY 07/28/2020 9:11 AM MANAGER UROLOGY Narrative [facility] - 07/31/2020 3:02 AM MANAGER UROLOGY FASTING:YES FASTING: YES Saumya Wells NP LABORATORY Final Res ult [facility] [address] [place] [address] * COLOGUARD ([employer] SCIENCE) (07/22/2020 7:25 AM MANAGER UROLOGY) COLOGUARD RESULT Negative Not Applicable [facility] [employer] (CLIA #:[id number]) Comment: A negative result indicates a low likelihood that a colorectal cancer (CRC) or an advanced adenoma (adenomatous polyps with more advanced pre-malignant features) is present. The chance that a person with a negative Cologuard test has a colorectal cancer is less than 1 in 1500 (negative predictive value >99.9%) or has an advanced adenoma is less than 5.3% (negative predictive value 94.7%). These data are based on a prospective cross-sectional screening study of 10,000 individuals at average risk for colorectal cancer who were screened with both Cologuard and colonoscopy. (Jacky Henriquez et al, N Engl J Med 2014;370(14):3509-1402) The normal value (reference range) for this assay is negative. COLOGUARD RE-SCREENING RECOMMENDATION: Periodic routine colorectal cancer screening is an important part of preventive healthcare for asymptomatic persons at average risk for colorectal cancer. Following a negative Cologuard result, the [place] [employer] and U.S. Multi-Society Task Force screening guidelines recommend a Cologuard re-screening interval of 3 years. References: [place] [employer] (ACS). Colorectal cancer prevention and early detection. [place], [place]: [place] [employer]; [updated 2015Oct 18]. https://www.cancer.org/cancer/vgfbu-egxpys-tgfwom/yoxfvrpcd-ybcskmnlq-udfqdsb/ac s-rec ommendations.html. Accessed February 24, 2018; [place] DK, Laina CR, Anabela VenegasK, Colorectal Cancer Screening: Recommendations for Physicians and Patients from the U.S. Multi-Society Task Force on Colorectal Cancer Screening, Am J Gastroenterology 2017; 112:3259-3853. TEST TYPE: Composite algorithmic analysis of stool DNA-biomarkers with hemoglobin immunoassay. ??Quantitative values of individual biomarkers are not reportable and are not associated with individual biomarker result reference ranges. PRECAUTIONS AND LIMITATIONS: Cologuard is intended for colorectal cancer screening of adults of either sex, 45 years or older, who are at average-risk for colorectal cancer (CRC). Cologuard has been approved for use by the U.S. FDA. Cologuard may produce a false negative or false positive result. A negative Cologuard test result does not guarantee the absence of CRC or advanced adenoma (pre-cancer). Patients with a negative Cologuard test result should be advised to continue participating in a colorectal cancer screening program. The screening interval for Cologuard is currently recommended at an interval of every 3 years by the [place] [employer] and U.S. Multi-Society Task Force. A false positive result occurs when Cologuard produces a positive result, even though a colonoscopy may not find colorectal cancer or precancerous polyps. The performance of Cologuard has been established in a cross sectional study (i.e., single point in time) of average-risk adults aged 50-84. Cologuard performance in patients ages 45 to 49 years was estimated by sub-group analysis of near-age groups. Cologuard performance data in a 10,000 patient pivotal study using colonoscopy as the reference method can be accessed at the following location: www.PagerDuty.Dash Hudson/results. Additional description of the Cologuard test process, warnings and precautions can be found at www.cologuardtest.com. Rx only. Stool specimen (specimen) STOOL SPECIMEN / Unknown 07/22/2020 7:25 AM MANAGER UROLOGY 07/23/2020 10:32 AM MANAGER UROLOGY Saumya Wells PHOSPHORIC ACID OPERATOR BODY FLUIDS AND STOOLS OR DERABLES Final Result [facility]) [address] [place] [address], [facility] (CLIA #:[id number]) [address] [place] [address] from Last 3 Months or Most Recently Relevant to Health Maintenance Insurance [facility] Care Teams Clinical Admissions Manager Relationship Specialty Start Date End Date Saumya Wells NP [address] [place] [address] PCP - General NURSE PRACTITIONER 07/02/20
--- OUTSIDE RECORDS SUMMARY | 2024-06-16 17:15 | XMS_ITS | Encounter Summary ---
Author Organization [facility] Address [address] [place] [address]. [place], [place] [id number] [place] [id number] Care Team Providers Care Coat Joiner Name Role Phone Saumya Zarate NP Primary Care Provider [phone] Reason for Visit * Reason Comments Annual Encounter Details Date Type Department Care Team (Late st Contact Info) Description 05/09/2024 1:20 PM JET ENGINE MECHANIC Office Visit [facility] Family Medicine [facility] [address] [facility] [address] [place] [address] Saumya Zarate, [place] [address] [place] [address] [id number] Annual Social History Tobacco Use Types Packs/Day [...] on file Legal Sex Female 9:29 AM JET ENGINE MECHANIC Gender Identity Not on file Sexual Orientation Not on file documented as of this encounter Last Filed Vital Signs Vital Sign Reading Time Taken Comments Blood Pressure 133/80 05/09/2024 1:22 PM JET ENGINE MECHANIC Pulse 73 05/09/2024 1:22 PM JET ENGINE MECHANIC Temperature 37.6 ??C (99.6 ??F) 05/09/2024 1:22 PM CS T Respiratory Rate 16 05/09/2024 1:22 PM JET ENGINE MECHANIC Oxygen Saturation 96% 05/09/2024 1:22 PM JET ENGINE MECHANIC Inhaled Oxygen Concentration - - Weight 85.4 kg (188 lb 3.2 oz) 05/09/2024 1:22 P M JET ENGINE MECHANIC Height 157.5 cm (5' 2 ) 05/09/2024 1:22 PM JET ENGINE MECHANIC Body Mass Index 34.42 05/09/2024 1:22 PM JET ENGINE MECHANIC documented in this encounter Progress Notes * Saumya Zarate NP - 05/09/2024 2:04 PM CSTAssociated Problem(s): Hypothyroidism, unspecified type Chronic condition. Will check TSH to be sure her current dose is appropirate. Last TSH level reviewed. ENGINE MECHANIC * Saumya Zarate NP - 05/09/2024 2:03 PM CSTAssociated Problem(s): Anxiety and depression Stable. Doing ok. PHQ-9 and ANNABEL-7 reviewed. Has had increase stressors that she feels is to be expected. She ill follow up in future if she feels further tx is necessary or not. ENGINE MECHANIC ENGINE MECHANIC ENGINE MECHANIC * Saumya Zarate NP - 05/09/2024 1:20 PM CST Chief Complaint Patient presents with Annual SUBJECTIVE: Evelia Cedeno is a 53-year-old female who presents for annual wellness examination and management of chronic disease. Problem Obesity (Bmi 30-39.9) Hyperlipidemia, Unspecified Hyperlipidemia Type Chronic condition. Currently taking Rosuvastatin 40 mg daily. Tolerates well without side effects. Hypothyroidism, Unspecified Type Chronic condition. Currently taking levothyroxine 100 mcg daily. Anxiety and Depression Stable. Doing ok. Has had increase stressors that shse feels is to be expected. Past medial history, social history, family history reviewed. Current Outpatient Medications: levothyroxine (SYNTHROID) 100 MCG tablet, Take 1 tablet (100 mcg total) by mouth daily., Disp: 90 tablet, Rfl: 1 rosuvastatin (CRESTOR) 40 MG tablet, Take 1 tablet (40 mg total) by mouth nightly at bedtime. at bedtime, Disp: 90 tablet, Rfl: 1 Review of patient's allergies indicates: Allergen Reactions Penicillins Hives and Swelling Past Medical History: Diagnosis Date Anxiety and depression Colon cancer screening 06/2020 negative cologuard repeat in 3 years H/O mammogram 05/12/2021 normal,repeat in 1 year, ordered by Dr. Galvez Hyperlipidemia Hypothyroidism Past Surgical History: Procedure Laterality Date ANTERIOR CRUCIATE LIGAMENT REPAIR 2011 Family History Problem Relation Name Age of Onset Hypertension Mother RD Arthritis Mother RD Early Hearing Loss Mother RD Diabetes Mother RD Hypertension Father TK Hyperlipidemia Father TK Diabetes Father TK Heart Disease Father TK Stroke Father TK TIA in mid 50s Diabetes Maternal Grandmother HF Heart Disease Maternal Grandmother HF Other (tongue cancer) Maternal Grandmother HF Cancer Maternal Grandmother HF Early Hearing Loss Maternal Grandmother HF Heart Disease Paternal Grandfather BF Alcohol Abuse Paternal Grandfather BF Drug Abuse Maternal Uncle RF Early Hearing Loss Maternal Uncle RF Alcohol Abuse Maternal Grandfather RF Social History Socioeconomic History Marital status: Spouse name: Not on file Number of children: Not on file Years of education: Not on file Highest education level: Not on file Occupational History Not on file Tobacco Use Smoking status: Never Smokeless tobacco: Never Vaping Use Vaping status: Never Used Substance and Sexual Activity Alcohol use: Not Currently Alcohol/week: 1.0 standard drink of alcohol Types: 1 Standard drinks or equivalent per week Comment: Not every week Drug use: Never Sexual activity: Not Currently Partners: Male control/protection: Post-menopausal , Surgical Other Topics Concern Not on file Social History Narrative Not on file Social Drivers of Health Financial Resource Strain: Not on file Food Insecurity: Not on file Transportation Needs: Not on file Physical Activity: Not on file Stress: Not on file Social Connections: Not on file Intimate Partner Violence: Not on file Housing Stability: Not on file ROS: Review of Systems Constitutional: Negative. HENT: Positive for hearing loss (wears hearing aids). Eyes: Negative. Respiratory: Negative. Cardiovascular: Negative. Gastrointestinal: Negative. Endocrine: Negative. Genitourinary: Negative. Musculoskeletal: Negative. Skin: Negative. Allergic/Immunologic: Negative. Neurological: Negative. Hematological: Negative. Psychiatric/Behavioral: Anxiety and depression - stable. OBJECTIVE: Filed Vitals: 05/09/24 1322 BP: 133/80 Pulse: 73 Resp: 16 Temp: 99.6 ??F (37.6 ??C) TempSrc: Skin SpO2: 96% Weight: 85.4 kg (188 lb 3.2 oz) Height: 1.575 m (5' 2 ) Physical Exam Constitutional: General: She is not in acute distress. Appearance: She is well-developed. She is obese. She is not ill-appearing, toxic-appearing or diaphoretic. HENT: Head: Normocephalic and atraumatic. Right Ear: Tympanic membrane, ear canal and external ear normal. Decreased hearing noted. Left Ear: Tympanic membrane, ear canal and external ear normal. Decreased hearing noted. Nose: Nose normal. Mouth/Throat: Pharynx: Uvula midline. No oropharyngeal exudate. Eyes: General: No scleral icterus. Pupils: Pupils are equal, round, and reactive to light. Neck: Thyroid: No thyromegaly. Vascular: No carotid bruit. Trachea: No tracheal deviation. Cardiovascular: Rate and Rhythm: Normal rate and regular rhythm. Heart sounds: Normal heart sounds. No murmur heard. Pulmonary: Effort: Pulmonary effort is normal. No respiratory distress. Breath sounds: Normal breath sounds. No wheezing or rales. Chest: Chest wall: No tenderness. Abdominal: General: Bowel sounds are normal. There is no distension. Palpations: Abdomen is soft. Tenderness: There is no abdominal tenderness. There is no guarding or rebound. Musculoskeletal: General: No tenderness or deformity. Cervical back: Normal range of motion and neck supple. Lymphadenopathy: Cervical: No cervical adenopathy. Skin: General: Skin is warm and dry. Capillary Refill: Capillary refill takes less than 2 seconds. Coloration: Skin is not pale. Findings: No erythema or rash. Neurological: Mental Status: She is alert and oriented to person, place, and time. Cranial Nerves: No cranial nerve deficit. Sensory: No sensory deficit. Deep Tendon Reflexes: Reflexes are normal and symmetric. Psychiatric: Speech: Speech normal. Behavior: Behavior normal. Thought Content: Thought content normal. Judgment: Judgment normal. PHQ-9: 04/28/2023 8:27 AM 05/09/2024 2:00 PM PHQ2/PHQ 9 DEPRESSION SCREEN QUESTIONAIRE Little interest or pleasure in doing things Several days Several days Feeling down, depressed, or hopeless Several days Several days Patient Health Questionnaire-2 Score 2 2 Trouble falling or staying asleep, or sleeping too much Not at all Over half Feeling tired or having little energy Not at all Not at all Poor appetite or overeating Not at all Not at all Feeling bad about yourself - or that you are a failure or have let yourself or your family down Notat all Several days Trouble concentrating on things, such as reading the newspaper or watching television Several days Not at all Moving or speaking so slowly that other people could have noticed? Or the opposite - being so fidgety or restless that you have been moving around a lot more than usual. Not at all Not at all Thoughts that you would be better off or hurting yourself in some way Not at all Not at all Patient Health Questionnaire-9 Score 3 5 How difficult have these problems made it for you to do your work, take care of things at home, or get along with other people? Somewhat difficult Not difficult at all ANNABEL-7 (Generalized Anxiety Disorder) Screening 04/28/2023 8:28 AM 05/09/2024 2:01 PM ANNABEL-7 Feeling nervous, anxious, or on edge 1 2 Not being able to stop or control worrying 0 1 Worrying too much about different things 1 2 Trouble relaxing 0 1 Being so restless that it is hard to sit still 0 0 Becoming easily annoyed or irritable 2 1 Feeling afraid as if something awful might happen 0 1 ANNABEL-7 Total Score 4 8 How difficult have these problems made it for you to do your work, take care of things at home, or get along with other people? Somewhat difficult Somewhat difficult ASSESSMENT AND PLAN Evelia Cedeno is a 53-year-old female Health Care Maintenance: Prevention: - Cervical cancer screening follows with executive assistant to general counsel Dr. Galvez - STD screening declined/not indicated - Contraceptive management- encourage safe sex practices - Breast cancer screening- encourage monthly self breast exams, 2022, scheduled in May. - Colon cancer screening cologuard due this year. Was ordered by her liquor rectifier and pt just sent in - Diabetes screening-ordered - Discussed diet and lifestyle recommendations. -Encourage following a low fat, low carb diet, [...] or a combination of moderate and vigorous activity. -Discussed weight loss if appropriate to the patient. - Tobacco use does not smoke - Immunizations recommended and education given: Tdap declined today, Shingrix encourage,will consider getting in future, and Flu given today Problem List Items Addressed This Visit Hyperlipidemia, unspecified hyperlipidemia type Chronic condition. Will recheck lipid panel to be sure lipids are within normal range. Encourage following a healthy well balance diet. Limit saturated and trans fats. Encourage to get plenty of lean meats in your diet and grilled fish. Recommend eating at least 2 servings of fruits and vegetables per day. Encourage to limit sugar, processed foods, and large amount of carbohydrates. Relevant Orders LIPID PANEL Hypothyroidism, unspecified type Chronic condition. Will check TSH to be sure her current dose is appropirate. Last TSH level reviewed. Relevant Orders TSH W/REFLEX Anxiety and depression Stable. Doing ok. PHQ-9 and ANNABEL-7 reviewed. Has had increase stressors that she feels is to be expected. She ill follow up in future if she feels further tx is necessary or not. Obesity (BMI 30-39.9) Encourage diet and lifestyle changes to assist with weight loss. Other Visit Diagnoses Encounter for wellness examination in adult - Primary Need for immunization against influenza Relevant Orders [[id number]] Flu Vaccine, 0.5 mL, 6+ Months (Single Dose Syringe Fluarix, Fluzone, Flulaval, or Afluria)(Completed) Screening for endocrine, metabolic and immunity disorder Relevant Orders CBC W/DIFF AUTOMATED COMPREHENSIVE METABOLIC PANEL 2 or more stable chronic conditions dicussed/reviewed during annual. Return in about 1 year (around 05/09/2025) for for annual physical. Sooner if needed . SAUMYA ZARATE NP [facility] ENGINE MECHANIC * Saumya Zarate NP - 05/09/2024 1:18 PM CSTAssociated Problem(s): Obesity (BMI 30-39.9) Encourage diet and lifestyle changes to assist with weight loss. ENGINE MECHANIC ENGINE MECHANIC * Saumya Zarate NP - 05/09/2024 1:17 PM CSTAssociated Problem(s): Hyperlipidemia, unspecified hyperlipidemia type Chronic condition. Will recheck lipid panel to be sure lipids are within normal range. Encourage following a healthy well balance diet. Limit saturated and trans fats. Encourage to get plenty of lean meats in your diet and grilled fish. Recommend eating at least 2 servings of fruits and vegetables per day. Encourage to limit sugar, processed foods, and large amount of carbohydrates. ENGINE MECHANIC ENGINE MECHANIC documented in this encounter Plan of Treatment Not on file documented as of this encounter Results * (ABNORMAL) TSH W/REFLEX (06/05/2024 7:25 AM JET ENGINE MECHANIC) Pathologist [facility] TSH 3.882(H) 0.358 - 3.740 uIU/ML 06/05/2024 2:54 PM JET ENGINE MECHANIC [facility] 06/05/2024 7:25 AM JET ENGINE MECHANIC Saumya Zarate INSTRUCTOR [employer] Final Res ult [facility] [address] [place] [address], [place] [phone] * (ABNORMAL) LIPID PANEL (06/05/2024 7:25 AM JET ENGINE MECHANIC) [facility] CHOLESTEROL 180 <200 MG/DL 06/05/2024 2:54 PM JET ENGINE MECHANIC [facility] TRIGLYCERIDES 159(H) <150 MG/DL 06/05/2024 2:54 PM [facility] HDL 56 >40 MG/DL 06/05/2024 2:54 PM JET ENGINE MECHANIC [facility] LDL-C 92 <100 MG/DL 06/05/2024 2:54 PM JET ENGINE MECHANIC [facility] VLDL CALCULATION 32(H) 5 - 28 MG/DL 06/05/2024 2:54 PM JET ENGINE MECHANIC [facility] CHOL/HDL RATIO 3.2 0.0 - 4.0 06/05/2024 2:54 PM JET ENGINE MECHANIC [facility] LDL/HDL 1.6 0.41 - 2.13 06/05/2024 2:54 PM JET ENGINE MECHANIC [facility] NON HDL CHOLESTEROL 124 <140 MG/DL 06/05/2024 2:54 PM JET ENGINE MECHANIC [facility] 06/05/2024 7:25 AM JET ENGINE MECHANIC us Saumya Zarate NP LABORATORY Final Res ult [facility] [address] [place] [address], * (ABNORMAL) COMPREHENSIVE METABOLIC PANEL (06/05/2024 7:25 AM JET ENGINE MECHANIC) SODIUM S/P/B 143 136 - 145 MMOL/L 06/05/2024 2:54 PM JET ENGINE MECHANIC [facility] POTASSIUM S/P/B 4.3 3.5 - 5.1 MMOL/L 06/05/2024 2:54 PM JET ENGINE MECHANIC [facility] CHLORIDE S/P/B 106 98 - 107 MMOL/L 06/05/2024 2:54 PM JET ENGINE MECHANIC [facility] CO2 31.5 21 - 32 MMOL/L 06/05/2024 2:54 PM [facility] GLUCOSE 99 70 - 99 MG/DL 06/05/2024 2:54 PM [facility] BUN 16 7 - 18 MG/DL 06/05/2024 2:54 PM [facility] CREATININE S/P/B 0.90 0.55 - 1.02 MG/DL 06/05/2024 2:54 PM [facility] CALCIUM S/P/B 9.1 8.4 - 10.5 MG/DL 06/05/2024 2:54 PM [facility] BILIRUBIN TOTAL S/P/B 0.5 0.2 - 1.0 MG/DL 06/05/2024 2:54 PM [facility] ALKALINE PHOSPHATASE S/P/B 97 41 - 108 U/L 06/05/2024 2:54 PM [facility] AST 26 15 - 37 U/L 06/05/2024 2:54 PM [facility] ALT 46 14 - 59 U/L 06/05/2024 2:54 PM [facility] TOTAL PROTEIN S/P/B 6.7 6.4 - 8.2 G/DL 06/05/2024 2:54 PM [facility] ALBUMIN S/P/B 3.7 3.4 - 5.0 G/DL 06/05/2024 2:54 PM [facility] ANION GAP 5.5 5 - 15 MMOL/L 06/05/2024 2:54 PM [facility] Comment:REFERENCE RANGE NOT ESTABLISHED OSMOLALITY (CALC) 297 MOSM/KG 024 2:54 PM [facility] Comment:REFERENCE RANGE NOT ESTABLISHED GFR ESTIMATE 76(L) >90 ML/MIN/1. 73 M2 06/05/2024 2:54 PM [facility] GFR NOTES GFR REFERENCE S: 06/05/2024 2:54 PM JET ENGINE MECHANIC [facility] Comment: THE ESTIMATED GFR IS CALCULATED [...] FAILURE: <15 ml/min/1.73 m2 06/05/2024 7:25 AM JET ENGINE MECHANIC us Saumya Zarate NP LABORATORY Final Res ult [facility] [address] [place] [address], * (ABNORMAL) CBC W/DIFF AUTOMATED (06/05/2024 7:25 AM JET ENGINE MECHANIC) WBC 6.90 4.00 - 10.80 x10'3/uL 06/05/2024 2:49 PM JET ENGINE MECHANIC [facility] RBC 4.71 4.10 - 5.40 x10'6/uL 06/05/2024 2:49 PM JET ENGINE MECHANIC [facility] HGB 14.5 12.0 - 16.0 G/DL 06/05/2024 2:49 PM JET ENGINE MECHANIC [facility] HCT 42.9 36.0 - 47.0 % 06/05/2024 2:49 PM JET ENGINE MECHANIC [facility] MCV 91.1 78.0 - 100.0 FL 06/05/2024 2:49 PM JET ENGINE MECHANIC [facility] MCH 30.8 27.0 - 31.0 PG 06/05/2024 2:49 PM JET ENGINE MECHANIC [facility] MCHC 33.8 33.0 - 36.0 G/DL 06/05/2024 2:49 PM [facility] RDW 12.7 11.5 - 14.5 % 06/05/2024 2:49 PM [facility] PLT 163 150 - 350 x10'3/uL 06/05/2024 2:49 PM [facility] MPV 11.7(H) 7.4 - 10.4 FL 06/05/2024 2:49 PM [facility] DIFFERENTIAL TYPE AUTOMATED DIFFERENTIAL 06/05/2024 2:49 PM [facility] NEUTROPHILS % 53.6 % 06/05/2024 2:49 PM [facility] LYMPHOCYTES % 37.0 % 06/05/2024 2:49 PM [facility] MONOCYTES % 6.8 % 06/05/2024 2:49 PM [facility] EOSINOPHILS % 2.2 % 06/05/2024 2:49 PM [facility] BASOPHILS % 0.3 % 06/05/2024 2:49 PM [facility] IMMATURE GRANS % 0.1 % 06/05/2024 2:49 PM [facility] ABS. NEUTROPHILS 3.70 1.60 - 8.30 x10'3/uL 06/05/2024 2:49 PM [facility] ABS. LYMPHOCYTES 2.55 0.80 - 4.70 x10'3/uL 06/05/2024 2:49 PM [facility] ABS. MONOCYTES 0.47 0.00 - 1.50 x10'3/uL 06/05/2024 2:49 PM [facility] ABS. EOSINOPHILS 0.15 0.00 - 0.40 x10'3/uL 06/05/2024 2:49 PM [facility] ABS. BASOPHILS 0.02 0.00 - 0.20 x10'3/uL 06/05/2024 2:49 PM JET ENGINE MECHANIC [facility] ABS. IMMATURE GRANULOCYTES 0.01 0.00 - 0.03 x10'3/uL 06/05/2024 2:49 PM JET ENGINE MECHANIC [facility] 06/05/2024 7:25 AM JET ENGINE MECHANIC us Saumya Zarate INSTRUCTOR [employer] Final Res ult [facility] [place] [place] [address] [place] [address], documented in this encounter Visit Diagnoses Diagnosis Encounter for wellness examination in adult- Primary Need for immunization against influenza Need for prophylactic vaccination and inoculation against influenza Screening for endocrine, metabolic and immunity disorder Hyperlipidemia, unspecified hyperlipidemia type Hypothyroidism, unspecified type Obesity (BMI 30-39.9) Obesity, unspecified Anxiety and depression Dysthymic disorder documented in this encounter Additional Health Concerns Assessment Noted Time PHQ-9 Depression Total Score: 5 05/09/20 24 2:00 PM JET ENGINE MECHANIC documented as of this encounter Care Teams Coat Joiner Relationship Specialty Start Date End Date Saumya Zarate NP [address] [place] [address] PCP - General NURSE PRACTITIONER 07/02/20 documented as of this encounter
--- OUTSIDE RECORDS SUMMARY | 2024-06-16 17:15 | XMS_ITS | Encounter Summary ---
Author Organization [facility] Address [address] [place] [address]. [place], [place] [id number] [place] [address] Care Team Providers Care Ecology Professor Name Role Phone Saumya Wells NP Primary Care Provider [phone] Encounter Details Date Type Department Care Team (Latest Contact Info) Description 06/05/2024 Travel Social History Tobacco Use Types Packs/Day [...] on file Legal Sex Female 9:29 AM PATENT ATTORNEY Gender Identity Not on file Sexual Orientation Not on file documented as of this encounter Plan of Treatment Not on file documented as of this encounter Visit Diagnoses Not on filedocumented in this encounter Additional Health Concerns Assessment Noted Time PHQ-9 Depression Total Score: 5 05/09/20 24 2:00 PM PATENT ATTORNEY documented as of this encounter Care Teams Ecology Professor Relationship Specialty Start Date End Date Saumya Wells NP [address] [place] [address] PCP - General NURSE PRACTITIONER 07/02/20 documented as of this encounter
--- OUTSIDE RECORDS SUMMARY | 2024-06-16 17:15 | XMS_ITS | Encounter Summary ---
Author Organization [facility] Address [address] [place] [address]. [place], [place] [address] [place] [address] Care Team Providers Care Yacht Builder Name Role Phone Saumya Wells YOUTH CARE SPECIALIST Primary Care Provider [phone] [phone] Reason for Visit * Reason Comments COVID-19 Patient presents wit h c/o COVID and ear pressure Encounter Details Date Type Department Care Team (Late st Contact Info) Description 03/05/2024 10:20 AM CDT Telemedicine [facility] Family Medicine - [place] [address] [facility] [address] [place] [id number] Saumya Wells, YOUTH CARE SPECIALIST [address] [id number] COVID-19 (Patient presents with c/o COVID and ear pressure) Social History Tobacco Use Types Packs/Day Years Used Date Smoking Tobacco: Never Smokeless Tobacco: Never Tobacco Cessation:Counseling Given: No Alcohol Use Standard Drinks/Week Comments Yes 1 (1 standard drink = 0.6 oz pur e alcohol) Not every week PHQ-2 Answer Date Recorded Patient Health Questionnaire-2 Score 2 04/28/2023 Comments No Sex and Gender Information Value Date Recorded Sex Assigned at Not on file Legal Sex Female 9:29 AM 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 Gender Identity Not on file Sexual Orientation Not on file documented as of this encounter Last Filed Vital Signs Vital Sign Reading Time Taken Comments Blood Pressure - - Pulse 91 03/05/2024 9:45 AM CDT Temperature 36.8 ??C (98.3 ??F) 03/05/2024 9:45 AM CD T Respiratory Rate - - Oxygen Saturation 97% 03/05/2024 9:45 AM CDT Inhaled Oxygen Concentration - - Weight - - Height - - Body Mass Index - - documented in this encounter Progress Notes * Saumya Wells NP - 03/05/2024 10:20 AM CDT Reason for Visit: COVID-19 (Patient presents with c/o COVID and ear pressure) History of Present Illness: Evelia is a 53 year old female who presents for a virtual visit but pt ended up being assessed from her car d/t having complaints of bilateral ear pressure and decrease hearing for assessment. Pt is positive for COVID-19. Symptoms started 5 days ago. She tested positive on Tuesday (3 days ago). Shehas taken Ibuprofen for her symptoms and used the neti pot without relief. Denies fever, chills, sor e throat, chest pain, changes, nausea, vomiting, diarrhea or rash. Her daughter is also ill with COVID. Telemedicine Consent Discussed the following with the patient: The patient has chosen to receive care through the use oftelemedicine. Telemedicine enables health care providers at different locations to provided safe, effective, and convenient care through the use of technology. As with any health care service, there are risks associated with the use of telemedicine, including equipment failure, poor image resolution , and health information assistant issues. Patient also understands that a physical exam may not be able devin performed and the patient may need to come to the clinic to complete the assessment. Patient/Guardian consented to the use of telemedicine. Patient/Guardian verbally understands the risks and benefits of telemedicine as explained. All questions regarding telemedicine answered. Telemedicine Virtual Visit I introduced and identified myself, received verbal consent from the patient to proceed with this video visit and made the patient aware that the same confidentiality and health information assistant practices apply. The patient joined the video visit from Vehicle. I completed the virtual visit from outside patients vehicle . The following clinical staff helped with this visit MA: Pooja Bingham MA . Total Time Spent in Minutes: 10 Medications: Current Outpatient Medications: levothyroxine (SYNTHROID) 100 MCG tablet, take 1 tablet by mouth daily, Disp: 120 tablet, Rfl: 1 rosuvastatin (CRESTOR) 40 MG tablet, take 1 tablet by mouth nightly at bedtime, Disp: 90 tablet, Rfl: 0 Allergies Allergen Reactions Penicillins Hives and Swelling Past Medical History: Diagnosis Date Anxiety and depression Colon cancer screening 06/2020 negative cologuard repeat in 3 years H/O mammogram 05/12/2021 normal,repeat in 1 year, ordered by Dr. Galvez Hyperlipidemia Hypothyroidism OB History Para Term AB Living 3 3 0 0 0 0 SAB IAB Ectopic Molar Multiple Live Births 0 0 0 0 0 0 Past Surgical History: Procedure Laterality Date ANTERIOR CRUCIATE LIGAMENT REPAIR 2011 Social History Tobacco Use Smoking status: Never Smokeless tobacco: Never Vaping Use Vaping status: Never Used Substance Use Topics Alcohol use: Yes Alcohol/week: 1.0 standard drink of alcohol Types: 1 Standard drinks or equivalent per week Comment: Not every week Drug use: Never Family History Problem Relation Name Age of [...] RF Early Hearing Loss Maternal Uncle RF ROS: Review of Systems Constitutional: Negative for chills, diaphoresis, fever, malaise/fatigue and weight loss. HENT: Positive for congestion. Negative for ear discharge, ear pain, hearing loss (chronic, wears hearing aids, pressure in ears), nosebleeds, sinus pain, sore throat and tinnitus. [...] not nervous/anxious and does not have insomnia. Physical Exam Constitutional: General: She is not in acute distress. Appearance: Normal appearance. She is not ill-appearing, toxic-appearing or diaphoretic. HENT: Right Ear: No drainage, swelling or tenderness. A middle ear effusion (clear fluid) is present. There is no impacted cerumen. Tympanic membrane is not erythematous or retracted. Left Ear: No drainage, swelling or tenderness. A middle ear effusion (clear fluid) is present. There is no impacted cerumen. Tympanic membrane is not erythematous or retracted. Nose: Congestion present. Cardiovascular: Rate and Rhythm: Normal rate and regular rhythm. Pulses: Normal pulses. Heart sounds: Normal heart sounds. Pulmonary: Effort: Pulmonary effort is normal. Breath sounds: Normal breath sounds. Neurological: Mental Status: She is alert. Pt assessed from her car Filed Vitals: 03/05/24 0945 Pulse: 91 Temp: 98.3 ??F (36.8 ??C) TempSrc: Temporal SpO2: 97% Assessment/Recommendations/Plan 1. COVID-19 -Pt doing well. Not interested in antiviral therapy and symptoms are mild and improving besides troubles with her ears. -Resume supportive therapy. 2. Eustachian tube dysfunction, bilateral -Recommend antihistamine/decongestant. -Discussed signs/symptoms to warrant follow up evaluation of her ears. Follow up: If symptoms worsen or new problems arise. SAUMYA WELLS NP 03/05/2024 9:48 AM documented in this encounter Plan of Treatment Not on file documented as of this encounter Visit Diagnoses Diagnosis COVID-19 Eustachian tube dysfunction, bilateral documented in this encounter Additional Health Concerns Assessment Noted Time PHQ-9 Depression Total Score: 3 04/28/20 23 8:27 AM CDT documented as of this encounter Care Teams Yacht Builder Relationship Specialty Start Date End Date Saumya Wells NP [address] [place] [address] PCP - General NURSE PRACTITIONER 07/02/20 documented as of this encounter
--- OUTSIDE RECORDS SUMMARY | 2024-06-16 17:15 | XMS_ITS | Encounter Summary ---
Author Organization [facility] Address [address] [place] [address]. 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
--- OUTSIDE RECORDS SUMMARY | 2024-06-16 17:15 | XMS_ITS | Encounter Summary ---
Author Organization [facility] Address [address] [place] [address]. [place], [place] [address] [place] [address] Care Team Providers Care Tablet Making Machine Operator Helper Name Role Phone Saumya Wells NP Primary Care Provider [phone] [phone] Encounter Details Date Type Department Care Team (Latest Contact Info) Description 05/09/2024 Travel Social History Tobacco Use Types Packs/Day [...] on file Legal Sex Female 9:29 AM SERVICE PROMOTER SALESPERSON Gender Identity Not on file Sexual Orientation Not on file documented as of this encounter Plan of Treatment Not on file documented as of this encounter Visit Diagnoses Not on filedocumented in this encounter Additional Health Concerns Assessment Noted Time PHQ-9 Depression Total Score: 5 05/09/20 24 2:00 PM SERVICE PROMOTER SALESPERSON documented as of this encounter Care Teams Tablet Making Machine Operator Helper Relationship Specialty Start Date End Date Saumya Wells NP [address] [place] [address] PCP - General NURSE PRACTITIONER 07/02/20 documented as of this encounter
--- OUTSIDE RECORDS SUMMARY | 2024-06-16 17:15 | XMS_ITS | Encounter Summary ---
Author Organization [facility] Address [address] [place] [address]. [place], [place] [address] [place] [address] Care Team Providers Care Warehouse Material Handler Name Role Phone Saumya Wells NP Primary Care Provider [phone] [phone] Reason for Visit * Reason Onset Date Comments Lab Order 04/06/2023 Encounter Details Date Type Department Care Team (Late st Contact Info) Description 04/06/2023 Telephone [facility] Family Medicine - [place] [address] [id number] Saumya Wells NP [address] [place] [address] [place] [id number] Lab Order Social History Tobacco Use Types Packs/Day Years Used Date Smoking Tobacco: Never Smokeless Tobacco: Never Alcohol Use Standard Drinks/Week Comments Yes 1 (1 standard drink = 0.6 oz pur e alcohol) Not every week PHQ-2 Answer Date Recorded PHQ-2 Score - If the patient scores above 3, please move on to questions 3-9 3 03/31/2022 Comments No Sex and Gender Information Value Date Recorded Sex Assigned at Not on file Legal Sex Female 9:29 AM EQUIPMENT OPERATOR WAGE HAND Gender Identity Not on file Sexual Orientation Not on file documented as of this encounter Progress Notes * Saumya Wells NP - 04/06/2023 8:40 AM CDT Lab orders placed to [facility] * Sasha Anisha Dawkins - 04/06/2023 8:33 AM CDT Evelia has an appt for her annual physical on 04/28, she wants to know if you will order labs at [facility]. documented in this encounter Plan of Treatment Not on file documented as of this encounter Procedures Procedure Name Priority Date/Time Associated Diagnosis Comments TSH W/REFLEX Routine 04/22/2023 8:22 AM CDT Screening for thyroid disorder COMPREHENSIVE METABOLIC PANEL Routine 04/22/2023 8:22 AM CDT Screening for endocrine, metabolic and immunity disorder LIPID PANEL Routine 04/22/2023 8:22 AM CDT Hyperlipidemia, unspecified hyperlipidemia type CBC W/DIFF AUTOMATED Routine 04/22/2023 8:22 AM CDT Screening for endocrine, metabolic and immunity disorder documented in this encounter Results * TSH W/REFLEX (04/22/2023 8:22 AM CDT) TSH 1.15 mIU/L [facility] Comment: ?Reference Range ?> or = 20 Years ??0.40-4.50 ? Ranges ?First trimester ?0.26-2.66 ?Second trimester ?? 0.55-2.73 ?Third trimester ?0.43-2.91 04/22/2023 8:22 AM CDT 04/22/2023 8:23 AM CDT Narrative [facility] - [facility] [place] - 04/23/2023 3:17 AM CDT FASTING:YES FASTING: YES Resulting Agency Comment Performing Organization Information: ?Site ID: [id number] ?Name: [facility] ?Address: [address] [id number] ?Director: Solange Cm MD us Saumya Wells NP LABORATORY Final Res ult [facility] - [facility] BR[facility] [address] [address], * LIPID PANEL (04/22/2023 8:22 AM CDT) [facility] CHOLESTEROL 161 <200 mg/dL [place] HDL 55 > OR = 50 mg/dL [place] TRIGLYCERIDES 101 <150 mg/dL [place] LDL (CALCULATED) 87 mg/dL (calc) [place] Comment: Reference range: <100 Desirable range <100 mg/dL for primary prevention; ?? <70 mg/dL for patients with CHD or diabetic patients with > or = 2 CHD risk factors. LDL-C is now calculated using the Jayro-Kate calculation, which is a validated novel method providing better accuracy than the Friedewald equation in the estimation of LDL-C. Jayro SS et al. JULIETTE. 2013;310(19): 8183-0004 (http://education.Eveo/faq/NCX883) CHOL/HDL RATIO 2.9 <5.0 (calc) [place] NON HDL CHOLESTEROL 106 <130 mg/dL (calc) [place] Comment: For patients with diabetes plus 1 major ASCVD risk factor, treating to a non-HDL-C goal of <100 mg/dL (LDL-C of <70 mg/dL) is considered a therapeutic option. 04/22/2023 8:22 AM CDT 04/22/2023 8:23 AM CDT Narrative [facility] - [place] [place] - 04/23/2023 3:17 AM CDT FASTING:YES FASTING: YES Resulting Agency Comment Performing Organization Information: ?Site ID: [id number] ?Name: [facility] ?Address: [address] [place] [address] ?Director: Solange Cm us Saumyakieran Wells SOLID FIBER PASTER OPERATOR LABORATORY Final Res ult [facility] - [place] [address] [place] [address], * COMPREHENSIVE METABOLIC PANEL (04/22/2023 8:22 AM CDT) [facility] GLUCOSE 88 65 - 99 mg/dL [place] Comment: ? Fasting reference interval BUN 22 7 - 25 mg/dL [place] CREATININE S/P/B 0.94 0.50 - 1.03 mg/dL [place] GFR ESTIMATE 73 > OR = 60 mL/min/1. 73m2 [place] BUN CREATININE RATIO SEE NOTE: (calc) [place] Comment: ?? Not Reported: BUN and Creatinine are within ?? reference range. ? SODIUM S/P/B 139 135 - 146 mmol/L [place] POTASSIUM S/P/B 4.6 3.5 - 5.3 mmol/L [place] CHLORIDE S/P/B 104 98 - 110 mmol/L [place] CO2 29 20 - 32 mmol/L [place] CALCIUM S/P/B 9.8 8.6 - 10.4 mg/dL [place] TOTAL PROTEIN S/P/B 6.6 6.1 - 8.1 g/dL [place] ALBUMIN S/P/B 4.5 3.6 - 5.1 g/dL [place] GLOBULIN 2.1 1.9 - 3.7 g/dL (calc) [place] ALBUMIN/GLOBULIN RATIO 2.1 1.0 - 2.5 (calc) [place] BILIRUBIN TOTAL S/P/B 0.6 0.2 - 1.2 mg/dL [facility] [place] ALKALINE PHOSPHATASE S/P/B 92 37 - 153 U/L [facility] [place] AST 17 10 - 35 U/L [facility] [place] ALT 19 6 - 29 U/L [place] 04/22/2023 8:22 AM CDT 04/22/2023 8:23 AM CDT Narrative [facility] - [place] [place] - 04/23/2023 3:17 AM CDT FASTING:YES FASTING: YES Resulting Agency Comment Performing Organization Information: ?Site ID: ?Name: [facility] ?Address: [address] [place] [phone] ?Director: Solange Cm Saumya Wells SOLID FIBER PASTER OPERATOR LABORATORY Final Res ult Performing Organization Address City/State/[facility] Co de Phone Number [facility] [address] [address], * CBC W/DIFF AUTOMATED (04/22/2023 8:22 AM CDT) WBC 6.5 3.8 - 10.8 Thousand/u L [place] RBC 4.88 3.80 - 5.10 Million/uL [place] HGB 15.1 11.7 - 15.5 g/dL [place] HCT 44.6 35.0 - 45.0 % [place] MCV 91.4 80.0 - 100.0 fL [place] MCH 30.9 27.0 - 33.0 pg [place] MCHC 33.9 32.0 - 36.0 g/dL [place] RDW 13.0 11.0 - 15.0 % [place] PLT 154 140 - 400 Thousand/u L [place] MPV 11.5 7.5 - 12.5 fL [place] ABS. NEUTROPHILS 3,757 1,500 - 7,800 cells/uL [place] ABS. LYMPHOCYTES 2,080 850 - 3,900 cells/uL [place] ABS. MONOCYTES 514 200 - 950 cells/uL [facility] [place] ABS. EOSINOPHILS 117 15 - 500 cells/uL [place] ABS. BASOPHILS 33 0 - 200 cells/uL [facility] [place] SEG NEUTROPHILS 57.8 % [place] LYMPHOCYTES 32.0 % [place] MONOCYTES 7.9 % [place] EOSINOPHILS 1.8 % [place] BASOPHILS 0.5 % [place] 04/22/2023 8:22 AM CDT 04/22/2023 8:23 AM CDT Narrative [facility] - [place] [place] - 04/23/2023 3:17 AM CDT FASTING:YES FASTING: YES Resulting Agency Comment Performing Organization Information: ?Site ID: ?Name: [facility] ?Address: [address] [place] [phone] ?Director: Solange Cm us Saumya Wells NP LABORATORY Final Res ult Performing Organization Address City/State/[facility] Co de Phone Number [facility] [address] [id number] documented in this encounter Visit Diagnoses Diagnosis Hyperlipidemia, unspecified hyperlipidemia type- Primary Screening for endocrine, metabolic and immunity disorder Screening for thyroid disorder documented in this encounter Additional Health Concerns Assessment Noted Time PHQ-9 Depression Total Score: 11 022 8:55 AM CDT documented as of this encounter Care Teams Warehouse Material Handler Relationship Specialty Start Date End Date Saumya Wells NP [address] [place] [address] PCP - General NURSE PRACTITIONER 07/02/20 documented as of this encounter
--- OUTSIDE RECORDS SUMMARY | 2024-06-16 17:15 | XMS_ITS | Encounter Summary ---
Author Organization [facility] Address [address] [place] [address]. 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
--- OUTSIDE RECORDS SUMMARY | 2024-06-16 17:15 | XMS_ITS | Encounter Summary ---
Author Organization [facility] Address [address] [place] [address]. [place] [address] Care Team Providers Care Psychiatry Adult Physician Name Role Phone Saumya Wells NP Primary Care Provider [phone] [phone] Reason for Visit * Reason Comments Mammogram (SCAN) Encounter Details Date Type Department Care Team ([facility] Contact Info) Description 04/13/2023 Scan [facility] Scanned, Doc Med Group Mammogram (SCAN) Social History Tobacco Use Types Packs/Day [...] on file Legal Sex Female 9:29 AM SPINNER HAND Gender Identity Not on file Sexual Orientation Not on file documented as of this encounter Plan of Treatment Not on file documented as of this encounter Procedures Procedure Name Priority Date/Time Associated Diagnosis Comments MAMMOGRAM GENERIC (SCAN ORDER) 04/13/2023 documented in this encounter Results * MAMMOGRAM GENERIC (04/13/2023) Anatomical Region Laterality Modality Other 04/13/2023 us Doc Med Group Scanned SCANNING Final Resu lt documented in this encounter Visit Diagnoses Not on filedocumented in this encounter Additional Health Concerns Assessment Noted Time PHQ-9 Depression Total Score: 11 022 8:55 AM CDT documented as of this encounter Care Teams Psychiatry Adult Physician Relationship Specialty Start Date End Date Saumya Wells NP [address] [place] [address] PCP - General NURSE PRACTITIONER 07/02/20 documented as of this encounter
--- OUTSIDE RECORDS SUMMARY | 2024-06-16 17:15 | XMS_ITS | Encounter Summary ---
Author Organization [facility] Address [address] [place] [address]. [place], [place] [address] [place] [address] Care Team Providers Care Celluloid Trimmer Name Role Phone Saumya Wells NP Primary Care Provider [phone] [phone] Reason for Visit * Reason Onset Date Comments Record Request 05/10/2024 Encounter Details Date Type Department Care Team (Late st Contact Info) Description 05/10/[address] [facility] Family Medicine - [place] [address] [phone] Saumya Wells NP [address] [place] [address] [place] [id number] Record Request Social History Tobacco Use Types Packs/Day Years [...] on file Legal Sex Female 9:29 AM GLOBAL MARKETING OPERATIONS MANAGER Gender Identity Not on file Sexual Orientation Not on file documented as of this encounter Progress Notes * Martine Horton MA - 05/16/2024 3:28 PM CST Received and sent to PCP AL MARKETING OPERATIONS MANAGER * Martien Horton MA - 05/10/2024 8:06 AM CST I have faxed Dr. Galvez for pap report (Last JOAN in chart is 04/27/23-did not send) AL MARKETING OPERATIONS MANAGER documented in this encounter Plan of Treatment Not on file documented as of this encounter Visit Diagnoses Not on filedocumented in this encounter Additional Health Concerns Assessment Noted Time PHQ-9 Depression Total Score: 5 05/09/20 24 2:00 PM GLOBAL MARKETING OPERATIONS MANAGER documented as of this encounter Care Teams Celluloid Trimmer Relationship Specialty Start Date End Date Saumya Wells NP [address] [place] [address] PCP - General NURSE PRACTITIONER 07/02/20 documented as of this encounter
--- OUTSIDE RECORDS SUMMARY | 2024-06-16 17:16 | XMS_ITS | Encounter Summary ---
Author Organization [facility] Address [address] [place] [address]. [place], [place] [address] [place] [address] Care Team Providers Care Human Performance Technologist Name Role Phone Saumya Wells RESIDENTIAL LIVING ASSISTANT Primary Care Provider [phone] [phone] Reason for Visit * Reason Comments Physical Patient presents for an adult routine exam Encounter Details Date Type Department Care Team (Late st Contact Info) Description 03/31/2022 9:00 AM CDT Office Visit [facility] Family Medicine - [place] [address] [facility] [address] [place] [id number] Saumya Wells, WHITNEY [address] [address] Physical (Patient presents for an adult routine exam) Social History Tobacco Use Types Packs/Day Years [...] file Legal Sex Female 9:29 AM MANAGER INFORMATION Gender Identity Not on file Sexual Orientation Not on file COVID-19 Exposure Response Date Recorded In the last 10 days, have yo u been in contact with someone who was confirmed or suspected to have Coronavirus/COVID-19? No / Unsure 03/31/2022 8:44 AM CDT documented as of this encounter Last Filed Vital Signs Vital Sign Reading Time Taken Comments Blood Pressure 126/71 03/31/2022 8:49 AM CDT Pulse 70 03/31/2022 8:49 AM CDT Temperature 36.4 ??C (97.6 ??F) 03/31/2022 8:49 AM CD T Respiratory Rate 21 03/31/2022 8:49 AM CDT Oxygen Saturation 97% 03/31/2022 8:49 AM CDT Inhaled Oxygen Concentration - - Weight 90.1 kg (198 lb 9.6 oz) 03/31/2022 8:49 A M CDT Height 157.5 cm (5' 2 ) 03/31/2022 8:49 AM CDT Body Mass Index 36.32 03/31/2022 8:49 AM CDT documented in this encounter Progress Notes * Saumya Wells NP - 03/31/2022 9:00 AM CDT Reason for Visit: Physical (Patient presents for an adult routine exam) History of Present Illness: Evelia is a 51-year-old female with history of hypothyroidism, hyperlipidemia, and anxiety and depression who presents office for annual physical examination. Pt reports doing well. But feels she is struggling with depression again and a hard time getting tasks done d/t lack of motivation. She is not sure if she should increase her sertraline or try something else. She has tried counseling in the past but is not currently going. Is not currently exercising. Denies SI/HI. Dental exam-up to date Eye exam-up to date Diet- healthy, well balanced Exercise-not currently but would like to begin again Sleep- well at night Follows with Dr. Wesley for her well women care. UP to date on mammogram and pap at this time. Will discuss with patient what preventive health screens and vaccinations are recommended for patient age. Medications: Current Outpatient Medications: ??? levothyroxine (SYNTHROID) 100 MCG tablet, TAKE 1 TABLET(100 MCG) BY MOUTH DAILY, Disp: 90 tablet, Rfl: 0 ??? rosuvastatin (CRESTOR) 40 MG tablet, TAKE 1 TABLET(40 MG) BY MOUTH EVERY NIGHT AT BEDTIME, Disp: 30 tablet, Rfl: 0 ??? SERTRALINE 100 MG tablet, TAKE 1 TABLET(100 MG) BY MOUTH DAILY, Disp: 90 tablet, Rfl: 1 Allergies Allergen Reactions ??? Penicillins Hives and Swelling Past Medical History: Diagnosis Date ??? Anxiety and depression ??? Colon cancer screening 06/2020 negative cologuard repeat in 3 years ??? H/O mammogram 05/12/2021 normal,repeat in 1 year, ordered by Dr. Galvez ??? Hyperlipidemia ??? Hypothyroidism OB History Para Term AB Living 3 3 0 0 0 0 SAB IAB Ectopic Molar Multiple Live Births 0 0 0 0 0 0 Past Surgical History: Procedure Laterality Date ??? ANTERIOR CRUCIATE LIGAMENT REPAIR 2011 Social History Tobacco Use ??? Smoking status: Never Smoker ??? Smokeless tobacco: Never Used Vaping Use ??? Vaping Use: Never used Substance Use Topics ??? Alcohol use: Yes Alcohol/week: 1.0 standard drink Types: 1 Standard drinks or equivalent per week Comment: Not every week ??? Drug use: Never Family History Problem Relation Name Age of Onset ??? Hypertension Mother RD ??? Arthritis Mother RD ??? Early Hearing Loss Mother RD ??? Hypertension Father TK ??? Hyperlipidemia Father TK ??? Diabetes Father TK ??? Heart Disease Father TK ??? Diabetes Maternal Grandmother HF ??? Heart Disease Maternal Grandmother HF ??? Other (tongue cancer) Maternal Grandmother HF ??? Cancer Maternal Grandmother HF ??? Early Hearing Loss Maternal Grandmother HF ??? Heart Disease Paternal Grandfather BF ??? Alcohol Abuse Paternal Grandfather BF ??? Drug Abuse Maternal Uncle RF ??? Early Hearing Loss Maternal Uncle RF ROS: [...] and polydipsia. Does not bruise/bleed easily. Psychiatric/Behavioral: Positive for depression. Negative for hallucinations, memory loss, substance abuse and suicidal [...] distress. Breath sounds: Normal breath sounds. No stridor. No wheezing or rales. Chest: Chest wall: No tenderness. Abdominal: General: Abdomen is flat. Bowel sounds are normal. There is no distension. Palpations: Abdomen is soft. There is no mass. Tenderness: There is no abdominal tenderness. There is no guarding or rebound. Hernia: No hernia is present. Musculoskeletal: General: No swelling, tenderness or deformity. Normal range of motion. Cervical back: Normal range of motion and [...] Content: Thought content normal. Judgment: Judgment normal. Filed Vitals: 03/31/22 0849 BP: 126/71 Pulse: 70 Resp: 21 Temp: 97.6 ??F (36.4 ??C) TempSrc: Temporal SpO2: 97% Weight: 90.1 kg (198 lb 9.6 oz) Height: 5' 2 (1.575 m) Screening forms: PHQ-9: PHQ-9: Over the last two weeks, how often have you been bothered by any of the following problems? 07/07/2020 03/31/2022 LITTLE INTEREST OR PLEASURE IN DOING THINGS 1-Several Days 2-More than half the days FEELING DOWN, DEPRESSSED,OR HOPELESS 1-Several Days 1-Several Days PHQ2 DEPRESSION TOTAL SCORE 2 3 TROUBLE FALLING OR STAYING ASLEEP OR SLEEPING TOO MUCH 0-Not at All 2-More than half the days FEELING TIRED OR HAVING LITTLE ENERGY 1-Several Days 2-More than half the days POOR APPETITE OR OVEREATING 0-Not at All 1-Several Days FEELING BAD ABOUT YOURSELF 0-Not at All 1-Several Days TROUBLE CONCENTRATING ON THINGS 2-More than half the days 2-More than half the days MOVING OR SPEAKING SO SLOWLY THAT OTHER PEOPLE COULD HAVE NOTICED 0-Not at All 0-Not at All THOUGHTS THAT YOU WOULD BE BETTER OFF 0-Not at All 0-Not at All DEPRESSION SCREENING TOTAL SCORE 5 11 IF YOU CHECKED OFF ANY PROBLEMS - Somewhat difficult ANNABEL-7 (Generalized Anxiety Disorder) Screening ANNABEL-7 07/07/2020 Feeling nervous, anxious and on edge 1 [...] get along with other people? somewhat difficult Assessment/Recommendations/Plan 1. Annual physical exam 2. Anxiety and depression Will resume Sertraline for this and adding on Wellbutrin as well. Denies any SI/HI. We discussed the importance of an exercise regimen for overall health and her mental health. 3. Obesity (BMI 35.0-39.9 without comorbidity) -Highly encourage weight loss and discussed the importance of an exercise regimen for overall health and her mental health. 4. Hypothyroidism, unspecified type Chronic condition. Will recheck TSH to be sure med dose is appropriate. - TSH W/REFLEX; Future - TSH W/REFLEX 5. Mixed hyperlipidemia On statin. Will recheck levels. Encourage healthy eating and routine exercise. - LIPID PANEL; Future - LIPID PANEL 6. Screening for endocrine, metabolic and immunity disorder - CBC W/DIFF AUTOMATED; Future - COMPREHENSIVE METABOLIC PANEL; Future - CBC W/DIFF AUTOMATED - COMPREHENSIVE METABOLIC PANEL 7. Depression, unspecified depression type Will begin bupropion in addition to sertraline at this time. Will have pt follow up in 3-4 weeks todiscuss tolerance. Discussed with pt how to take and side effects. We discussed the importance of an exercise regimen for overall health and her mental health. - buPROPion SR (WELLBUTRIN SR) 150 MG 12 hr tablet; Take 1 tablet (150 mg total) by mouth 2 (two) times daily. Dispense: 90 tablet; Refill: 0 Cancer Screening and Prevention: discussed skin cancer and the appropriate use of sunscreen, discussed cervical cancer prevention and screenings, discussed colorectal cancer prevention and screeningsand discussed breast cancer prevention, encouraged and instructed patient in self-breast exam and ma mmography screening Diet and Nutrition: discussed weight and nutritional management guidelines, advised diet consistingof low fat dairy, intake of 5-7 servings of fruits and vegetables daily and avoidance of foods highin saturated fats Fitness and Exercise: discussed the positive benefits of regular aerobic exercise and strength training Mental Health: reviewed PHQ9 score Encourage following a low fat, low carb [...] vaccinations, blood pressure, weight at today's visit. I spent 15 minutes today reviewing the patient's medical record, obtaining history, performing an exam, ordering medications, tests, and/or procedures, documenting in the medical record, counseling and educating the patient/family/caregiver and reviewing and communicating test results. I spent 15 min on problem visit, recommendations, and plan. Follow up:3-4 weeks follow on on tolerance to Wellbutrin, 6 months chronic disease follow up Health Maintenance Topic Date Due ??? DTaP, Tdap and Td Vaccines (1 - Tdap) Never done ??? Cervical Cancer Screening with HPV Never done ??? Zoster Vaccines (1 of 2) Never done ??? Annual Physical 07/07/2021 ??? Mammogram Screening 05/12/2023 ??? Colorectal Cancer Screening FIT-DNA (3 Years) 07/22/2023 ??? Influenza Adult Completed ??? Hepatitis C Completed ??? COVID-19 Vaccine Completed ??? Meningococcal Vaccine Aged Out ??? Pneumococcal Vaccine: Pediatrics (0 to 5 Years) and At-Risk Patients (6 to 64 Years) Aged Out Influenza- declined today Tdap- encouraged, declined today Shingrix-encouraged, declined today Mammogram- 05/12/21, up to date, normal findings, ordered from Dr. Wesley WWSage/Pap- up to date, follows with Dr. Wesley Colonoscopy-cologuard 2020, negative Routine labs- orders placed. Weight- encourage weight loss ?? SAUMYA WELLS NP 03/31/2022 8:57 AM Cosigned by Narendra Dickey MD at 03/31/2022 5:47 PM CDT documented in this encounter Plan of Treatment Not on file documented as of this encounter Procedures Procedure Name Priority Date/Time Associated Diagnosis Comments TSH W/REFLEX Routine 04/07/2022 9:05 AM CDT Hypothyroidism, unspecified type COMPREHENSIVE METABOLIC PANEL Routine 04/07/2022 9:05 AM CDT Screening for endocrine, metabolic and immunity disorder LIPID PANEL Routine 04/07/2022 9:05 AM CDT Mixed hyperlipidemia CBC W/DIFF AUTOMATED Routine 04/07/2022 9:05 AM CDT Screening for endocrine, metabolic and immunity disorder documented in this encounter Results * TSH W/REFLEX (04/07/2022 9:05 AM CDT) TSH 0.74 mIU/L [facility] Comment: ?Reference Range ?> or = 20 Years ??0.40-4.50 ? Ranges ?First trimester ?0.26-2.66 ?Second trimester ?? 0.55-2.73 ?Third trimester ?0.43-2.91 04/07/2022 9:05 AM CDT 04/07/2022 9:07 AM CDT Narrative [facility] - 04/08/2022 5:28 AM CDT FASTING:YES FASTING: YES us Saumya Wells RESIDENTIAL LIVING ASSISTANT LABORATORY Final Res ult [facility] [address] [place] [address] * (ABNORMAL) LIPID PANEL (04/07/2022 9:05 AM CDT) CHOLESTEROL 163 <200 mg/dL [facility] HDL 54 > OR = 50 mg/dL [facility] TRIGLYCERIDES 175(H) <150 mg/dL [facility] LDL (CALCULATED) 82 mg/dL (calc) [facility] Comment: Reference range: <100 Desirable range <100 mg/dL for primary prevention; ?? <70 mg/dL for patients with CHD or diabetic patients with > or = 2 CHD risk factors. LDL-C is now calculated using the Melanie calculation, which is a validated novel method providing better accuracy than the Friedewald equation in the estimation of LDL-C. Jayro SS et al. JULIETTE. 2013;310(35): 7444-6476 (http://education.[employer]/faq/DMH130) CHOL/HDL RATIO 3.0 <5.0 (calc) [facility] NON HDL CHOLESTEROL 109 <130 mg/dL (calc) [facility] Comment: For patients with diabetes plus 1 major ASCVD risk factor, treating to a non-HDL-C goal of <100 mg/dL (LDL-C of <70 mg/dL) is considered a therapeutic option. 04/07/2022 9:05 AM CDT 04/07/2022 9:07 AM CDT Narrative [facility] - 04/08/2022 5:28 AM CDT FASTING:YES FASTING: YES Saumya Wells NP LABORATORY Final Res ult [facility] [address] [place] [address] * COMPREHENSIVE METABOLIC PANEL (04/07/2022 9:05 AM CDT) [facility] GLUCOSE 92 65 - 99 mg/dL [facility] Comment: ? Fasting reference interval BUN 13 7 - 25 mg/dL [facility] CREATININE S/P/B 0.95 0.50 - 1.03 mg/dL [facility] GFR ESTIMATE 72 > OR = 60 mL/min/1. 73m2 [facility] Comment: The eGFR is based on the CKD-EPI 2020 equation. To calculate the new eGFR from a previous Creatinine or Cystatin C result, go to https://www.kidney.org/professionals/ kdoqi/gfr%5Fcalculator BUN CREATININE RATIO NOT APPLICABLE 6 - 22 (calc) [facility] SODIUM S/P/B 139 135 - 146 mmol/L [facility] POTASSIUM S/P/B 4.0 3.5 - 5.3 mmol/L [facility] CHLORIDE S/P/B 105 98 - 110 mmol/L [facility] CO2 28 20 - 32 mmol/L [facility] CALCIUM S/P/B 9.8 8.6 - 10.4 mg/dL [facility] TOTAL PROTEIN S/P/B 6.8 6.1 - 8.1 g/dL [facility] ALBUMIN S/P/B 4.5 3.6 - 5.1 g/dL [facility] GLOBULIN 2.3 1.9 - 3.7 g/dL (calc) [facility] ALBUMIN/GLOBULI N RATIO 2.0 1.0 - 2.5 (calc) [facility] BILIRUBIN TOTAL S/P/B 0.5 0.2 - 1.2 mg/dL [facility] ALKALINE PHOSPHATASE S/P/B 102 37 - 153 U/L [facility] AST 18 10 - 35 U/L [facility] ALT 25 6 - 29 U/L [facility] 04/07/2022 9:05 AM CDT 04/07/2022 9:07 AM CDT Narrative [facility] - 04/08/2022 5:28 AM CDT FASTING:YES FASTING: YES us Saumya Wells NP LABORATORY Final Res ult [facility] [address] [place] [address] * CBC W/DIFF AUTOMATED (04/07/2022 9:05 AM CDT) WBC 6.9 3.8 - 10.8 Thousand/u L [facility] RBC 4.81 3.80 - 5.10 Million/uL [facility] HGB 14.4 11.7 - 15.5 g/dL [facility] HCT 44.0 35.0 - 45.0 % [facility] MCV 91.5 80.0 - 100.0 fL [facility] MCH 29.9 27.0 - 33.0 pg [facility] MCHC 32.7 32.0 - 36.0 g/dL [facility] RDW 13.4 11.0 - 15.0 % [facility] PLT 177 140 - 400 Thousand/u L [facility] MPV 10.9 7.5 - 12.5 fL [facility] ABS. NEUTROPHILS 3,933 1,500 - 7,800 cells/uL [facility] ABS. LYMPHOCYTES 2,305 850 - 3,900 cells/uL [facility] ABS. MONOCYTES 462 200 - 950 cells/uL [facility] ABS. EOSINOPHILS 159 15 - 500 cells/uL [facility] ABS. BASOPHILS 41 0 - 200 cells/uL [facility] SEG NEUTROPHILS 57 % [facility] LYMPHOCYTES 33.4 % [facility] MONOCYTES 6.7 % [facility] EOSINOPHILS 2.3 % [facility] BASOPHILS 0.6 % [facility] 04/07/2022 9:05 AM CDT 04/07/2022 9:07 AM CDT Narrative [facility] - 04/08/2022 5:28 AM CDT FASTING:YES FASTING: YES us Saumya Wells NP LABORATORY Final Res ult [facility] [address] [place] [address] documented in this encounter Visit Diagnoses Diagnosis Annual physical exam Routine general medical examination at a health care facility Anxiety and depression Dysthymic disorder Obesity (BMI 35.0-39.9 without comorbidity) Obesity, unspecified Hypothyroidism, unspecified type Mixed hyperlipidemia Screening for endocrine, metabolic and immunity disorder Depression, unspecified depression type documented in this encounter Additional Health Concerns Assessment Noted Time PHQ-9 Depression Total Score: 11 022 8:55 AM CDT documented as of this encounter Care Teams Human Performance Technologist Relationship Specialty Start Date End Date Saumya Wells NP [address] [place] [address] PCP - General NURSE PRACTITIONER 07/02/20 documented as of this encounter
--- OUTSIDE RECORDS SUMMARY | 2024-06-16 17:16 | XMS_ITS | Encounter Summary ---
Author Organization [facility] Address [address] [place] [address]. [place], [place] [address] [place] [address] Care Team Providers Care Tissue Recovery Technician Name Role Phone Saumya Wells NP Primary Care Provider [phone] [phone] Encounter Details Date Type Department Care Team (Latest Contact Info) Description 11/03/2021 Travel Social History Tobacco Use Types Packs/Day Years Used Date Smoking Tobacco: Never Smokeless Tobacco: Never Alcohol Use Standard Drinks/Week Comments Yes 1 (1 standard drink = 0.6 oz pur e alcohol) Not every week PHQ-2 Answer Date Recorded PHQ-2 Score - If the patient scores above 3, please move on to questions 3-9 2 07/07/2020 Comments No Sex and Gender Information Value Date Recorded Sex Assigned at Not on file Legal Sex Female 9:29 AM 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 No / Unsure 11/03/2021 7:40 AM CDT documented as of this encounter Plan of Treatment Not on file documented as of this encounter Visit Diagnoses Not on filedocumented in this encounter Additional Health Concerns Assessment Noted Time PHQ-9 Depression Total Score: 5 07/07/19 21 2:33 PM OCCUPATIONAL THERAPY INSTRUCTOR documented as of this encounter Care Teams Tissue Recovery Technician Relationship Specialty Start Date End Date Saumya Wells NP [address] [place] [address] PCP - General NURSE PRACTITIONER 07/02/20 documented as of this encounter
--- OUTSIDE RECORDS SUMMARY | 2024-06-16 17:16 | XMS_ITS | Encounter Summary ---
Author Organization [facility] Address [address] [place] [address]. [place], [place] [address] [place] [address] Care Team Providers Care Filter Tender Name Role Phone Saumya Wells NP Primary Care Provider [phone] [phone] Reason for Visit * Reason Onset Date Comments Refill Request 01/17/2023 Encounter Details Date Type Department Care Team (Late st Contact Info) Description 01/17/2023 Telephone [facility] Family Medicine - [place] [address] [id number] Saumya Wells NP [address] [phone] Refill Request Social History Tobacco Use Types Packs/Day [...] on file Legal Sex Female 9:29 AM MOHEL Gender Identity Not on file Sexual Orientation Not on file documented as of this encounter Progress Notes * Saumya Wells NP - 01/17/2023 8:25 PM CDTAddended by: SAUMYA WELLS on: 01/17/2023 08:25 PM Modules accepted: Orders * Pooja Bingham MA - 01/17/2023 1:17 PM CDT Refill request Nemesio Gonzalez Levothyroxine 100 mcg Take 1 tablet daily Medication refill request for: Last visit with SAUMYA WELLS in FAMILY [facility]ACTICE was on: 03/31/2022 in [facility] Was due to follow up in 6 months, no future apt documented in this encounter Plan of Treatment Not on file documented as of this encounter Visit Diagnoses Diagnosis Hypothyroidism, unspecified type documented in this encounter Additional Health Concerns Assessment Noted Time PHQ-9 Depression Total Score: 11 022 8:55 AM CDT documented as of this encounter Care Teams Filter Tender Relationship Specialty Start Date End Date Saumya Wells NP [address] [place] [address] PCP - General NURSE PRACTITIONER 07/02/20 documented as of this encounter
--- OUTSIDE RECORDS SUMMARY | 2024-06-16 17:16 | XMS_ITS | Encounter Summary ---
Author Organization [facility] Address [address] [place] [address]. [place], [place] [address] [place] [address] Care Team Providers Care Ash Pit Worker Name Role Phone Saumya Wells NP Primary Care Provider [phone] [phone] Encounter Details Date Type Department Care Team (Late st Contact Info) Description 08/02/2022 [email or web address] Message Enc [facility] Family Medicine - [place] [address] [facility] [address] [place] [phone] Saumya Wells NP [address] [place] [address] [place] [phone] Would like to get labs Social History Tobacco Use Types Packs/Day Years [...] on file Legal Sex Female 9:29 AM CLERICAL WAREHOUSE WORKER Gender Identity Not on file Sexual Orientation Not on file documented as of this encounter Progress Notes * Saumya Wells NP - 08/04/2022 12:52 PM CSTFrom: Evelia Cedeno To: Saumya Wells Sent: 08/02/2022 6:31 PM CLERICAL WAREHOUSE WORKER Subject: Would like to get labs Tao Jennings. I was wondering if I could get some labs done sometime soon. My last labs were in March but since the beginning of the year I have been doing a low carb diet with my . The last time I did this with him a few years ago, it made my triglycerides go up quite a bit. I thought it would be good to se e how things are before I got too much further into this experiment with him. :) Thank you, Evelia ICAL WAREHOUSE WORKER documented in this encounter Plan of Treatment Not on file documented as of this encounter Procedures Procedure Name Priority Date/Time Associated Diagnosis Comments LIPID PANEL Routine 09/03/2022 8:06 AM CLERICAL WAREHOUSE WORKER Hyperlipidemia, unspecified hyperlipidemia type documented in this encounter Results * (ABNORMAL) LIPID PANEL (09/03/2022 8:06 AM CLERICAL WAREHOUSE WORKER) CHOLESTEROL 159 <200 mg/dL [facility] [employer] [facility] HDL 45(L) > OR = 50 mg/dL [employer] [facility] TRIGLYCERIDES 149 <150 mg/dL [facility] LDL (CALCULATED) 89 mg/dL (calc) [facility] Comment: Reference range: <100 Desirable range <100 mg/dL for primary prevention; ?? <70 mg/dL for patients with CHD or diabetic patients with > or = 2 CHD risk factors. LDL-C is now calculated using the Jayro-Kate calculation, which is a validated novel method providing better accuracy than the Friedewald equation in the estimation of LDL-C. Jayro RODRIGES et al. JULIETTE. 2013;310(19): 0800-4786 (http://education.[employer]/faq/FXB288) CHOL/HDL RATIO 3.5 <5.0 (calc) [facility] NON HDL CHOLESTEROL 114 <130 mg/dL (calc) [facility] Comment: For patients with diabetes plus 1 major ASCVD risk factor, treating to a non-HDL-C goal of <100 mg/dL (LDL-C of <70 mg/dL) is considered a therapeutic option. 09/03/2022 8:06 AM CLERICAL WAREHOUSE WORKER 09/03/2022 8:07 AM CLERICAL WAREHOUSE WORKER Narrative [facility] - 09/04/2022 1:38 AM CLERICAL WAREHOUSE WORKER FASTING:YES FASTING: YES Resulting Agency Comment Performing Organization Information: ?Site ID: [id number] ?Name: [facility] ?Address: [address] [address] ?Director: Solange Cm MD us Saumya Wells NP LABORATORY Final Res ult [facility] [address] [place] [address] documented in this encounter Visit Diagnoses Diagnosis Hyperlipidemia, unspecified hyperlipidemia type- Primary documented in this encounter Additional Health Concerns Assessment Noted Time PHQ-9 Depression Total Score: 11 022 8:55 AM CDT documented as of this encounter Care Teams Ash Pit Worker Relationship Specialty Start Date End Date Saumya Wells NP [address] [place] [address] PCP - General NURSE PRACTITIONER 07/02/20 documented as of this encounter
--- OUTSIDE RECORDS SUMMARY | 2024-06-16 17:16 | XMS_ITS | Encounter Summary ---
Author Organization [facility] Address [address] [place] [address]. [place], [place] [id number] [place] [address] Care Team Providers Care Department Clerk Name Role Phone Saumya Zarate SHALE PLANER OPERATOR HELPER Primary Care Provider [phone] [phone] Reason for Visit * Reason Onset Date Comments Refill Request 09/10/2021 Encounter Details Date Type Department Care Team (Late st Contact Info) Description 09/10/2021 Zhilian Zhaopin Message Enc [facility] Family Medicine - [place] [address] [facility] [address] [place] [address] [phone] Saumya Zarate, WHITNEY [address] [place] [address] [id number] Rx for Setraline Social History Tobacco Use Types Packs/Day Years Used Date Smoking Tobacco: Never Smokeless Tobacco: Never Alcohol Use Standard Drinks/Week Comments Yes 0 (1 standard drink = 0.6 oz pur e alcohol) PHQ-2 Answer Date Recorded PHQ-2 Score - If the patient scores above 3, please move on to questions 3-9 2 07/07/2020 Comments Unknown Sex and Gender Information Value Date Recorded Sex Assigned at Not on file Legal Sex Female 9:29 AM CHARGE WEIGHER Gender Identity Not on file Sexual Orientation Not on file documented as of this encounter Progress Notes * Chris Aquino MA - 09/10/2021 1:26 PM CDT Last office visit at this office: Last visit with SAUMYA ZARATE in FAMILY PRACTICE was on: 07/07/2020 in [place] Future appointment scheduled: No future appointments. Sent refill to pharmacy documented in this encounter Plan of Treatment Not on file documented as of this encounter Visit Diagnoses Diagnosis Anxiety and depression Dysthymic disorder documented in this encounter Additional Health Concerns Assessment Noted Time PHQ-9 Depression Total Score: 5 07/07/19 21 2:33 PM CHARGE WEIGHER documented as of this encounter Care Teams Department Clerk Relationship Specialty Start Date End Date Saumya Zarate NP [address] [place] [address] PCP - General NURSE PRACTITIONER 07/02/20 documented as of this encounter
--- OUTSIDE RECORDS SUMMARY | 2024-06-16 17:16 | XMS_ITS | Encounter Summary ---
Author Organization [facility] Address [address] [place] [address]. [place], [place] [address] [place] [address] Care Team Providers Care World Geography Teacher Name Role Phone Saumya Wells NP Primary Care Provider [phone] [phone] Encounter Details Date Type Department Care Team (Late st Contact Info) Description 06/08/2022 Orders Only [facility] Medical [facility] Family Medicine - [place] 7[address] [facility] [address] [place] [address] 075144 Saumya Wells NP [address] [place] [address] [place] [address] [id number] Social History Tobacco Use Types Packs/Day Years [...] on file Legal Sex Female 9:29 AM ARTIFICIAL CANDY MAKER Gender Identity Not on file Sexual Orientation Not on file documented as of this encounter Plan of Treatment Not on file documented as of this encounter Visit Diagnoses Not on filedocumented in this encounter Additional Health Concerns Assessment Noted Time PHQ-9 Depression Total Score: 11 022 8:55 AM CDT documented as of this encounter Care Teams World Geography Teacher Relationship Specialty Start Date End Date Saumya Wells NP [address] [place] [address] [place] [address] PCP - General NURSE PRACTITIONER 07/02/20 documented as of this encounter
--- OUTSIDE RECORDS SUMMARY | 2024-06-16 17:16 | XMS_ITS | Encounter Summary ---
Author Organization [facility] Address [address] [place] [address]. [place], [place] [address] [place] [address] Care Team Providers Care Sales And Marketing Agent Name Role Phone Saumya Wells NP Primary Care Provider [phone] [phone] Encounter Details Date Type Department Care Team (Late st Contact Info) Description 12/13/2022 Orders Only [facility] 7[address] [facility] [address] [place], [place] 9[address] Pooja Bingham MA Social History Tobacco Use [...] on file Legal Sex Female 9:29 AM CARDIOLOGY PHYSICIAN ASSISTANT Gender Identity Not on file Sexual Orientation Not on file documented as of this encounter Plan of Treatment Not on file documented as of this encounter Visit Diagnoses Diagnosis Hyperlipidemia, unspecified hyperlipidemia type documented in this encounter Additional Health Concerns Assessment Noted Time PHQ-9 Depression Total Score: 11 022 8:55 AM CDT documented as of this encounter Care Teams Sales And Marketing Agent Relationship Specialty Start Date End Date Saumya Wells NP [address] [place] [address] [place], [place] [address] PCP - General NURSE PRACTITIONER 07/02/20 documented as of this encounter
--- OUTSIDE RECORDS SUMMARY | 2024-06-16 17:16 | XMS_ITS | Encounter Summary ---
Author Organization [facility] Address [address] [place] [address]. [place], [place] [address] [place] [address] Care Team Providers Care Stone Sawyer Name Role Phone Saumya Wells PHARMACY CLINICAL SPECIALIST Primary Care Provider [phone] Reason for Visit * Reason Comments Anxiety Patient presents for a 3 week follow up anxiety and depression Encounter Details Date Type Department Care Team (Late st Contact Info) Description 04/21/2022 9:00 AM CDT Telemedicine [facility] Medical [facility] Family Medicine [facility] [address] [phone] Saumya Wells, WHITNEY [address] 679804 Anxiety (Patient presents for a 3 week follow up anxiety and depression) Social History Tobacco Use Types Packs/Day Years [...] on file Legal Sex Female 9:29 AM CHAIR PAD MAKER Gender Identity Not on file Sexual Orientation Not on file COVID-19 Exposure Response Date Recorded In the last 10 days, have yo u been in contact with someone who was confirmed or suspected to have Coronavirus/COVID-19? No / Unsure 03/31/2022 8:44 AM CDT documented as of this encounter Progress Notes * Saumya Elisa Wells, WHITNEY - 04/21/2022 9:00 AM CDT Reason for Visit: Anxiety (Patient presents for a 3 week follow up anxiety and depression) History of Present Illness: Evelia is a 51-year-old female who presents for a video visit to discuss tolerance to bupropion to assist with patient's anxiety and depression. This medication was added on admission to her sertraline that she has been taking 100 mg daily. Patient reports is tolerating well without side effects. She feels that she is in a better mood with use, less angry, less aggravated at work and she is tells me that her has also noticed that she has been in a better mood. She is very happy with her current dose. Telemedicine Consent Discussed the following with the patient: The patient has chosen to receive care through the use oftelemedicine. Telemedicine enables health care providers at different locations to provided safe, effective, and convenient care through the use of technology. As with any health care service, there are risks associated with the use of telemedicine, including equipment failure, poor image resolution , and information technology account manager issues. Patient also understands that a physical [...] patient aware that the same confidentiality and information technology account manager practices apply. The patient joined the video visit from Home. I completed the virtual visit from Office. The following clinical staff helped with this visit MA: Pooja Bingham MA. Total Time Spent in Minutes: 10 Medications: Current Outpatient Medications: ??? buPROPion SR (WELLBUTRIN SR) 150 MG 12 hr tablet, Take 1 tablet (150 mg total) by mouth 2 (two)times daily., Disp: 90 tablet, Rfl: 0 ??? levothyroxine (SYNTHROID) 100 MCG tablet, TAKE [...] Maternal Uncle RF ROS: Review of Systems Cardiovascular: Negative for chest pain and palpitations. Gastrointestinal: Negative. Psychiatric/Behavioral: Positive for depression (improving ). The patient is nervous/anxious (improving ). Physical Exam Constitutional: General: She is not in acute distress. Appearance: Normal appearance. She is not ill-appearing, toxic-appearing or diaphoretic. Neurological: Mental Status: She is alert and oriented to person, place, and time. Psychiatric: Mood and Affect: Mood normal. Behavior: Behavior normal. Thought Content: Thought content normal. Judgment: Judgment normal. Assessment/Recommendations/Plan Encounter Diagnose(s) ICD-10-CM ICD-9-CM SNOMED CT(R) 1. Anxiety and depression F41.9 300.00 MIXED ANXIETY AND DEPRESSIVE DISORDER F32.A 311 Patient is doing very well with her current dose of bupropion to take in addition to her sertraline. No med changes needed at this time. Follow up: 6 months SAUMYA WELLS NP 04/21/2022 9:01 AM documented in this encounter Plan of Treatment Not on file documented as of this encounter Visit Diagnoses Diagnosis Anxiety and depression- Primary Dysthymic disorder documented in this encounter Additional Health Concerns Assessment Noted Time PHQ-9 Depression Total Score: 11 022 8:55 AM CDT documented as of this encounter Care Teams Stone Sawyer Relationship Specialty Start Date End Date Saumya Wells NP [address] [place] [address] PCP - General NURSE PRACTITIONER 07/02/20 documented as of this encounter
--- OUTSIDE RECORDS SUMMARY | 2024-06-16 17:16 | XMS_ITS | Encounter Summary ---
Author Organization [facility] Address [address] [place] [address]. [place], [place] [address] [place] [address] Care Team Providers Care Mri Specialist Name Role Phone Saumya Wells NP Primary Care Provider [phone] [phone] Encounter Details Date Type Department Care Team (Latest Contact Info) Description 03/31/2022 Travel Social History Tobacco Use Types Packs/Day [...] on file Legal Sex Female 9:29 AM CARBON SEQUESTRATION PLANT ENGINEER Gender Identity Not on file Sexual Orientation [...] documented as of this encounter Care Teams Mri Specialist Relationship Specialty Start Date End Date Saumya Wells NP [address] [place] [address] PCP - General NURSE PRACTITIONER 07/02/20 documented as of this encounter
--- OUTSIDE RECORDS SUMMARY | 2024-06-16 17:16 | XMS_ITS | Encounter Summary ---
Author Organization [facility] Address [address] [place] [address]. [place], [place] [address] [place] [address] Care Team Providers Care Panel Edge Painter Name Role Phone Saumya Wells NP Primary Care Provider [phone] [phone] Reason for Visit * Reason Comments URI/ENT Symptoms cough, congestion, s inus & ear pressure, fever for the last 5 days Encounter Details Date Type Department Care Team (Late st Contact Info) Description 11/03/2021 8:40 AM CDT Office Visit [facility] Family Medicine - [place] [address] [phone] Saumya Wells, WHITNEY [address] [address] URI/ENT Symptoms (cough, congestion, sinus & ear pressure, fever for the last 5 days) Social History Tobacco Use Types Packs/Day Years [...] on file Legal Sex Female 9:29 AM AIR PLANT ENGINEER Gender Identity Not on file Sexual Orientation Not on file COVID-19 Exposure Response Date Recorded In the last 10 days, have yo u been in contact with someone who was confirmed or suspected to have Coronavirus/COVID-19? No / Unsure 11/03/2021 7:40 AM CDT documented as of this encounter Last Filed Vital Signs Vital Sign Reading Time Taken Comments Blood Pressure 112/70 11/03/2021 8:39 AM CDT Pulse 81 11/03/2021 8:39 AM CDT Temperature 36.8 ??C (98.2 ??F) 11/03/2021 8:39 AM CD T Respiratory Rate 18 11/03/2021 8:39 AM CDT Oxygen Saturation 97% 11/03/2021 8:39 AM CDT Inhaled Oxygen Concentration - - Weight 88 kg (194 lb) 11/03/2021 8:39 AM CDT Height 157.5 cm (5' 2 ) 11/03/2021 8:39 AM CDT Body Mass Index 35.48 11/03/2021 8:39 AM CDT documented in this encounter Progress Notes * Saumya Wells, MANAGER ROOFING - 11/03/2021 8:40 AM CDT Reason for Visit: URI/ENT Symptoms (cough, congestion, sinus & ear pressure, fever for the last 5 days) History of Present Illness: Evelia is a 51-year-old female presents office accompanied by her with complaints of sinus congestion,pressure, bilateral ear pressure and pain, worse at night when lying down, productive cough of thick phlegm, fever max temp of 101 over the past 5 days and getting progressively gotten worse. Not sleeping well d/t cough. Eating and drinking normally still. Patient has taken 3 home COVID test that were negative. Has been taking Ibuprofen, Mucinex, Dayquil for her symptoms without relief. Denies shortness of breath, chest pain, palpitaitons dizziness, lightheadedness, n/v/d or rash. Denies recent travel. was ill recently with similar symptoms. Medications: Current Outpatient Medications: ??? cefdinir 300 MG Cap capsule, Take 1 capsule (300 mg total) by mouth 2 (two) times daily for 7 days., Disp: 14 capsule, Rfl: 0 ??? LEVOTHYROXINE 100 MCG tablet, TAKE 1 TABLET(100 MCG) BY MOUTH DAILY, Disp: 90 tablet, Rfl: 1 ??? ROSUVASTATIN 40 MG tablet, TAKE 1 TABLET(40 MG) BY MOUTH EVERY NIGHT AT BEDTIME, Disp: 90 tablet, Rfl: 0 ??? sertraline 100 MG tablet, Take 1 tablet (100 mg total) by mouth daily., Disp: 90 tablet, Rfl: 0 Allergies Allergen Reactions ??? Penicillins Hives and Swelling Past Medical History: Diagnosis Date ??? Anxiety and depression ??? Colon cancer screening 06/2020 negative cologuard repeat in 3 years ??? H/O mammogram 05/12/2021 normal,repeat in 1 year, ordered by Dr. Galvez ??? Hyperlipidemia ??? Hypothyroidism OB History Para Term AB Living 3 3 0 0 0 0 SAB TAB Ectopic Molar Multiple Live Births 0 0 [...] Early Hearing Loss Maternal Uncle RF ROS: ROS Pertinent positives negatives noted in HPI Physical Exam HENT: Right Ear: Decreased hearing noted. Tympanic membrane is erythematous and bulging. Left Ear: Decreased hearing noted. Tympanic membrane is erythematous and bulging. Ears: Comments: Wears hearing aids Nose: Congestion present. Mouth/Throat: Lips: [place]. Mouth: Mucous membranes are moist. Tongue: No lesions. Palate: No lesions. Pharynx: Oropharynx is clear. Uvula midline. Posterior oropharyngeal erythema (mild) present. No pharyngeal swelling, oropharyngeal exudate or uvula swelling. Tonsils: No tonsillar abscesses. 1+ on the right. 1+ on the left. Cardiovascular: Rate and Rhythm: Normal rate and regular rhythm. Pulses: Normal pulses. Heart sounds: No murmur heard. Pulmonary: Effort: Pulmonary effort is normal. No respiratory distress. Breath sounds: Normal breath sounds. No wheezing or rhonchi. Neurological: Mental Status: She is alert. Filed Vitals: 11/03/21 0839 BP: 112/70 Pulse: 81 Resp: 18 Temp: 98.2 ??F (36.8 ??C) TempSrc: Temporal SpO2: 97% Weight: 88 kg (194 lb) Height: 5' 2 (1.575 m) Assessment/Recommendations/Plan Encounter Diagnose(s) ICD-10-CM ICD-9-CM SNOMED CT(R) 1. Upper respiratory tract infection, unspecified type J06.9 465.9 UPPER RESPIRATORY INFECTION cefdinir 300 MG Cap capsule 2. Acute suppurative otitis media of both ears without spontaneous rupture of tympanic membranes, recurrence not specified H66.003 382.00 ACUTE SUPPURATIVE OTITIS MEDIA WITHOUT SPONTANEOUS RUPTURE OFEAR DRUM cefdinir 300 MG Cap capsule Will begin antibiotic therapy at this time based on exam findings and worsening symptoms. Pt stateshas taken cefdinir in the past and tolerated fine. Recommend resuming Mucinex to assist with thinning out secretions. Recommend Sudafed. Increase fluid intake and get plenty of rest. Good handwashing. Instructed not to share food or drink with others. For sore throat-May try as needed: salt water gargles (1/4-1/2 teaspoon of salt per 8 oz glass warmwater), Ibuprofen (Advil) as directed on the bottle for age/weight--take with food, Chloroseptic spray as directed on the bottle for age/weight, cough drops as directed on the package for age/weight or hard candy, or 1 teaspoon of honey or heavy peach syrup. Nasal congestion-May try as needed: ??Hong's Vapor Rub, humidifier, nasal saline spray as well as nasal saline flushes/Asuncion Pot and Flonase. For severe congestion can use Afrin for max use of three days. Fever/Comfort: ??May try Tylenol (acetaminophen) or Advil/Motrin (Ibuprofen) as directed on the bottle for age/weight as needed. Cough: ??May also try teaspoon honey or heavy peach syrup every 4 hrs as needed. Follow up: If symptoms worsen or new problems arise. Due for annual physical examination schedule in near future once well SAUMYA WELLS NP 11/03/2021 8:55 AM Cosigned by Des Johnson MD at 11/03/2021 9:32 AM CDT documented in this encounter Plan of Treatment Not on file documented as of this encounter Visit Diagnoses Diagnosis Upper respiratory tract infection, unspecified type Acute suppurative otitis media of both ears without spontaneous rupture of tympanic membranes, recurrence not specified documented in this encounter Additional Health Concerns Assessment Noted Time PHQ-9 Depression Total Score: 5 07/07/19 21 2:33 PM AIR PLANT ENGINEER documented as of this encounter Care Teams Panel Edge Painter Relationship Specialty Start Date End Date Saumya Wells NP [address] [place] [address] [place] [address] PCP - General NURSE PRACTITIONER 07/02/20 documented as of this encounter
--- OUTSIDE RECORDS SUMMARY | 2024-06-16 17:16 | XMS_ITS | Encounter Summary ---
Author Organization [facility] Address [address] [place] [address]. [place], [place] [address] [place] [address] Care Team Providers Care Supply Chain Business Analyst Name Role Phone Saumya Wells NP Primary Care Provider [phone] [phone] Reason for Visit * Reason Onset Date Comments Refill Request 04/05/2023 Encounter Details Date Type Department Care Team (Late st Contact Info) Description 04/05/2023 Telephone [facility] Family Medicine - [place] [address] [address] Saumya Wells NP [address] [place] [address] [place] [address] [id number] Refill Request Social History Tobacco Use Types [...] on file Legal Sex Female 9:29 AM COOKIE MIXER HELPER Gender Identity Not on file Sexual Orientation Not on file documented as of this encounter Progress Notes * Saumya Wells NP - 04/05/2023 8:25 PM CDT Script sent to new pharmacy. Encourage to schedule annual physical in near future. * Sasha Dawkins - 04/05/2023 2:55 PM CDT [facility] documented in this encounter Plan of Treatment Not on file documented as of this encounter Visit Diagnoses Diagnosis Hyperlipidemia, unspecified hyperlipidemia type documented in this encounter Additional Health Concerns Assessment Noted Time PHQ-9 Depression Total Score: 11 022 8:55 AM CDT documented as of this encounter Care Teams Supply Chain Business Analyst Relationship Specialty Start Date End Date Saumya Wells NP [address] [place] [address] PCP - General NURSE PRACTITIONER 07/02/20 documented as of this encounter
--- OUTSIDE RECORDS SUMMARY | 2024-06-16 17:16 | XMS_ITS | Encounter Summary ---
Author Organization [facility] Address [address] [place] [address]. [place], [place] [address] [place] [address] Care Team Providers Care Functional Architect Name Role Phone Saumya Wells NP Primary Care Provider +1 [phone] Encounter Details Date Type Department Care Team (Late st Contact Info) Description 06/08/2022 CoContest Message Enc [facility] Family [facility] [address] [facility] [address] [place] [phone] Saumya Wells NP [address] [place] [address] [place] [address]994 Wellbutrin side effects Social History Tobacco Use Types Packs/Day Years [...] file Legal Sex Female 9: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
--- OUTSIDE RECORDS SUMMARY | 2024-06-16 17:16 | XMS_ITS | Encounter Summary ---
Author Organization [facility] Address [address] [place] [address]. [place], [place] [address] [place] [address] Care Team Providers Care Software Qa System Specialist Name Role Phone Saumya Wells NP Primary Care Provider [phone] [phone] Encounter Details Date Type Department Care Team (Late st Contact Info) Description 07/10/2021 StraighterLine Message Enc [facility] Medical Group Family Medicine - [place] [address] [facility] [address] [place], [place] [address] Saumya Wells NP [address] [place] [address] [place], [place] [address] Follow-up Lab Tests Social History Tobacco Use Types Packs/Day Years [...] on file Legal Sex Female 9:29 AM DEPARTMENT STORE GENERAL MANAGER Gender Identity Not on file Sexual Orientation Not on file documented as of this encounter Plan of Treatment Not on file documented as of this encounter Visit Diagnoses Not on filedocumented in this encounter Additional Health Concerns Assessment Noted Time PHQ-9 Depression Total Score: 5 07/07/19 21 2:33 PM DEPARTMENT STORE GENERAL MANAGER documented as of this encounter Care Teams Software Qa System Specialist Relationship Specialty Start Date End Date Saumya Wells NP [address] [place] [address] [place] [address] PCP - General NURSE PRACTITIONER 07/02/20 documented as of this encounter
--- OUTSIDE RECORDS SUMMARY | 2024-06-16 17:17 | XMS_ITS | Encounter Summary ---
Author Organization [facility] Address [address] [place] [address]. [place], [place] [address] [place] [address] Care Team Providers Care Angio Technologist Name Role Phone Saumya Wells NP Primary Care Provider [phone] [phone] Reason for Visit * Reason Onset Date Comments Lab Results 07/29/2020 Encounter Details Date Type Department Care Team (Late st Contact Info) Description 07/29/2020 Telephone [facility] Medical Group Family Medicine - [place] [address] [phone] Saumya Wells NP [address] [place] [address] [place] [address] Lab Results Social History Tobacco Use Types Packs/Day Years [...] on file Legal Sex Female 9:29 AM CLINICAL SPECIALIST MEDICAL DEVICE Gender Identity Not on file Sexual Orientation Not on file COVID-19 Exposure Response Date Recorded In the last month, have you been in contact with someone who was confirmed or suspected to have Coronavirus / COVID-19? No / Unsure 07/07/2020 1:56 PM CLINICAL SPECIALIST MEDICAL DEVICE documented as of this encounter Progress Notes * Saumya Wells NP - 07/29/2020 1:05 PM CST Called pt to inform of lab results.No answer. Awaiting a call back to discuss. ICAL SPECIALIST MEDICAL DEVICE documented in this encounter Plan of Treatment Not on file documented as of this encounter Visit Diagnoses Not on filedocumented in this encounter Additional Health Concerns Assessment Noted Time PHQ-9 Depression Total Score: 5 07/07/19 21 2:33 PM CLINICAL SPECIALIST MEDICAL DEVICE documented as of this encounter Care Teams Angio Technologist Relationship Specialty Start Date End Date Saumya Wells NP [address] [place] [address] [place] [address] PCP - General NURSE PRACTITIONER 07/02/20 documented as of this encounter
--- OUTSIDE RECORDS SUMMARY | 2024-06-16 17:17 | XMS_ITS | Encounter Summary ---
Author Organization [facility] Address [address] [place] [address]. [place], [place] [address] [place] [address] Care Team Providers Care Hot Knife Cutter Name Role Phone Saumya Wells NP Primary Care Provider +1 [phone] Encounter Details Date Type Department Care Team (Latest Contact Info) Description 09/25/2018 Scan HEALTH INFO SRVCS Scanned, Documents Social History Tobacco Use Types Packs/Day Years Used Date Smoking Tobacco: Never Assessed PHQ-2 Answer Date Recorded PHQ-2 Score - If the patient scores above 3, please move on to questions 3-9 2 07/07/2020 Comments Unknown Sex and Gender Information Value Date Recorded Sex Assigned at Not on file Legal Sex Female 9:29 AM HEALTH AND PHYSICAL EDUCATION TEACHER Gender Identity Not on file Sexual Orientation Not on file COVID-19 Exposure Response Date Recorded In the last month, have you been in contact with someone who was confirmed or suspected to have Coronavirus / COVID-19? No / Unsure 07/07/2020 1:56 PM HEALTH AND PHYSICAL EDUCATION TEACHER documented as of this encounter Plan of Treatment Not on file documented as of this encounter Visit Diagnoses Not on filedocumented in this encounter Care Teams Hot Knife Cutter Relationship Specialty Start Date End Date Saumya Wells NP [address] [place] [address] PCP - General NURSE PRACTITIONER 07/02/20 documented as of this encounter
--- OUTSIDE RECORDS SUMMARY | 2024-06-16 17:17 | XMS_ITS | Encounter Summary ---
Author Organization [facility] Address [address] [place] [address]. [place], [place] [address] [place] [address] Care Team Providers Care Functional Director Name Role Phone Saumya Wells NP Primary Care Provider +1 [phone] Encounter Details Date Type Department Care Team (Latest Contact Info) Description 05/17/2019 Scan HEALTH INFO SRVCS Scanned, Documents Social History Tobacco Use Types Packs/Day Years Used Date Smoking Tobacco: Never Assessed PHQ-2 Answer Date Recorded PHQ-2 Score - If the patient scores above 3, please move on to questions 3-9 2 07/07/2020 Comments Unknown Sex and Gender Information Value Date Recorded Sex Assigned at Not on file Legal Sex Female 9:29 AM FURNITURE MOVER HELPER Gender Identity Not on file Sexual Orientation Not on file COVID-19 Exposure Response Date Recorded In the last month, have you been in contact with someone who was confirmed or suspected to have Coronavirus / COVID-19? No / Unsure 07/07/2020 1:56 PM FURNITURE MOVER HELPER documented as of this encounter Plan of Treatment Not on file documented as of this encounter Visit Diagnoses Not on filedocumented in this encounter Care Teams Functional Director Relationship Specialty Start Date End Date Saumya Wells NP [address] [place] [address] PCP - General NURSE PRACTITIONER 07/02/20 documented as of this encounter
--- OUTSIDE RECORDS SUMMARY | 2024-06-16 17:17 | XMS_ITS | Encounter Summary ---
Author Organization [facility] Address [address] [place] [address]. [place] [address] Care Team Providers Care Electric Dolly Operator Name Role Phone Saumya Wells NP Primary Care Provider +1 [phone] Reason for Visit * Reason Comments Mammogram (SCAN) Encounter Details Date Type Department Care Team ([facility] Contact Info) Description 03/17/2020 Scan HEALTH INFO SRVCS Scanned, Documents Mammogram (SCAN) Social History Tobacco Use Types Packs/Day Years Used Date Smoking Tobacco: Never Assessed PHQ-2 Answer Date Recorded PHQ-2 Score - If the patient scores above 3, please move on to questions 3-9 2 07/07/2020 Comments Unknown Sex and Gender Information Value Date Recorded Sex Assigned at Not on file Legal Sex Female 9:29 AM SALES RELATIONSHIP MANAGER Gender Identity Not on file Sexual Orientation Not on file COVID-19 Exposure Response Date Recorded In the last month, have you been in contact with someone who was confirmed or suspected to have Coronavirus / COVID-19? No / Unsure 07/07/2020 1:56 PM SALES RELATIONSHIP MANAGER documented as of this encounter Plan of Treatment Not on file documented as of this encounter Procedures Procedure Name Priority Date/Time Associated Diagnosis Comments MAMMOGRAM GENERIC (SCAN ORDER) 03/17/2020 documented in this encounter Results * MAMMOGRAM GENERIC (03/17/2020) Anatomical Region Laterality Modality Other 03/17/2020 Narrative 03/17/2020 Ordered by an unspecified provider. us Documents Scanned SCANNING Final Result documented in this encounter Visit Diagnoses Not on filedocumented in this encounter Care Teams Electric Dolly Operator Relationship Specialty Start Date End Date Saumya Wells NP [address] [place] [address] PCP - General NURSE PRACTITIONER 07/02/20 documented as of this encounter
--- OUTSIDE RECORDS SUMMARY | 2024-06-16 17:17 | XMS_ITS | Encounter Summary ---
Author Organization [facility] Address [address] [place] [address]. [place], [place] [address] [place] [address] Care Team Providers Care Manager Utilization Review Name Role Phone Saumya Wells NP Primary Care Provider +1 [phone] Reason for Visit * Reason Onset Date Comments Medication Request 03/12/2021 Encounter Details Date Type Department Care Team (Late st Contact Info) Description 03/12/2021 Telephone [facility] Medical Group Family Medicine - [place] [address] [id number] Saumya Wells NP [address] [address] Medication Request Social History Tobacco Use Types Packs/Day [...] on file Legal Sex Female 9:29 AM PRESIDENT AND CEO Gender Identity Not on file Sexual Orientation Not on file documented as of this encounter Progress Notes * Tru Aggarwal MA - 04/27/2021 10:14 AM CDTAddended by: TRU AGGARWAL on: 04/27/2021 10:14 AM Modules accepted: Orders * Tru Aggarwal MA - 04/27/2021 10:13 AM CDTAddended by: TRU AGGARWAL on: 04/27/2021 10:13 AM Modules accepted: Orders * Tru Aggarwal MA - 04/27/2021 10:12 AM CDT Pt aware of lab results. Will increase statin to 40mg QD. New rx sent to pharmacy. Will have labs redrawn in 6-8 weeks. * Chris Aquino MA - 03/12/2021 3:29 PM CDT Sent new script for Rosuvastatin 20mg to pharmacy. Patient will discontinue Atorvastatin at this time. Will get labs drawn in 6 weeks. Order sent documented in this encounter Plan of Treatment Not on file documented as of this encounter Procedures Procedure Name Priority Date/Time Associated Diagnosis Comments LIPID PANEL Routine 07/15/2021 9:59 AM PRESIDENT AND CEO Hyperlipidemia, unspecified hyperlipidemia type COMPREHENSIVE METABOLIC PANEL Routine 04/23/2021 7:54 AM CDT Hyperlipidemia, unspecified hyperlipidemia type Hypothyroidism, unspecified type LIPID PANEL Routine 04/23/2021 7:54 AM CDT Hyperlipidemia, unspecified hyperlipidemia type documented in this encounter Results * (ABNORMAL) LIPID PANEL (07/15/2021 9:59 AM PRESIDENT AND CEO) CHOLESTEROL 165 <200 mg/dL [facility] HDL 45(L) > OR = 50 mg/dL [facility] TRIGLYCERIDES 173(H) <150 mg/dL [facility] LDL (CALCULATED) 93 mg/dL (calc) [facility] Comment: Reference [...] LDL-C. Jayro RODRIGES et al. JULIETTE. 2013;310(19): 5955-0554 (http://education.[employer]/faq/PMW402) CHOL/HDL RATIO 3.7 <5.0 (calc) [facility] NON HDL CHOLESTEROL 120 <130 mg/dL (calc) [facility] Comment: For patients with diabetes plus 1 major ASCVD risk factor, treating to a non-HDL-C goal of <100 mg/dL (LDL-C of <70 mg/dL) is considered a therapeutic option. 07/15/2021 9:59 AM PRESIDENT AND CEO 07/15/2021 10:00 AM PRESIDENT AND CEO Narrative [facility] - 07/16/2021 3:41 AM PRESIDENT AND CEO FASTING:YES FASTING: YES us Saumya Wells NP LABORATORY Final Res ult [facility] [address] [place] [address] * (ABNORMAL) COMPREHENSIVE METABOLIC PANEL (04/23/2021 7:54 AM CDT) [facility] GLUCOSE 95 65 - 99 mg/dL [facility] Comment: ? Fasting reference interval BUN 16 7 - 25 mg/dL [facility] CREATININE S/P/B 0.91 0.50 - 1.05 mg/dL [facility] Comment: For patients >49 years of age, the reference limit for Creatinine is approximately 13% higher for people identified as -Colombian. EGFR NON-AFR. AMER. 73 > OR = 60 mL/min/1 .73m2 [facility] [place] EGFR AFR. AMER. 85 > OR = 60 mL/min/1 .73m2 [facility] [place] BUN CREATININE RATIO NOT APPLICABLE 6 - 22 (calc) [facility] SODIUM S/P/B 141 135 - 146 mmol/L [facility] POTASSIUM S/P/B 4.4 3.5 - 5.3 mmol/L [facility] CHLORIDE S/P/B 105 98 - 110 mmol/L [facility] CO2 25 20 - 32 mmol/L [facility] CALCIUM S/P/B 10.0 8.6 - 10.4 mg/dL [facility] TOTAL PROTEIN S/P/B 6.7 6.1 - 8.1 g/dL [facility] ALBUMIN S/P/B 4.4 3.6 - 5.1 g/dL [facility] GLOBULIN 2.3 1.9 - 3.7 g/dL (calc) [facility] ALBUMIN/GLOBULIN RATIO 1.9 1.0 - 2.5 (calc) [facility] BILIRUBIN TOTAL S/P/B 0.7 0.2 - 1.2 mg/dL [facility] ALKALINE PHOSPHATASE S/P/B 91 37 - 153 U/L [facility] AST 20 10 - 35 U/L [facility] ALT 32(H) 6 - 29 U/L [facility] 04/23/2021 7:54 AM CDT 04/23/2021 7:54 AM CDT Narrative [facility] - 04/24/2021 3:37 AM CDT FASTING:YES FASTING: YES us Saumya Wells NP LABORATORY Final Res ult [facility] [address] [address] [address] * (ABNORMAL) LIPID PANEL (04/23/2021 7:54 AM CDT) CHOLESTEROL 153 <200 mg/dL [facility] HDL 44(L) > OR = 50 mg/dL [facility] TRIGLYCERIDES 205(H) <150 mg/dL [facility] Comment: If a non-fasting specimen was collected, consider repeat triglyceride testing on a fasting specimen if clinically indicated. João et al. J. of Clin. Lipidol. 2015;9:129-169. LDL (CALCULATED) 79 mg/dL (calc) [facility] Comment: Reference range: <100 Desirable range <100 mg/dL for primary prevention; ?? <70 mg/dL for patients with CHD or diabetic patients with > or = 2 CHD risk factors. LDL-C is now calculated using the Jayro-Love calculation, which is a validated novel method providing better accuracy than the Friedewald equation in the estimation of LDL-C. Jayro SS et al. JULIETTE. 2013;310(19): 5950-1300 (http://education.[employer]/faq/GCV364) CHOL/HDL RATIO 3.5 <5.0 (calc) [facility] NON HDL CHOLESTEROL 109 <130 mg/dL (calc) [facility] Comment: For patients with diabetes plus 1 major ASCVD risk factor, treating to a non-HDL-C goal of <100 mg/dL (LDL-C of <70 mg/dL) is considered a therapeutic option. 04/23/2021 7:54 AM CDT 04/23/2021 7:54 AM CDT Narrative [facility] - 04/24/2021 3:37 AM CDT FASTING:YES FASTING: YES Saumya Wells NP LABORATORY Final Res ult [facility] [address] [place] [address] documented in this encounter Visit Diagnoses Diagnosis Hyperlipidemia, unspecified hyperlipidemia type- Primary Hypothyroidism, unspecified type documented in this encounter Additional Health Concerns Assessment Noted Time PHQ-9 Depression Total Score: 5 07/07/19 21 2:33 PM PRESIDENT AND CEO documented as of this encounter Care Teams Manager Utilization Review Relationship Specialty Start Date End Date Saumya Wells NP [address] [place] [address] PCP - General NURSE PRACTITIONER 07/02/20 documented as of this encounter
--- OUTSIDE RECORDS SUMMARY | 2024-06-16 17:17 | XMS_ITS | Encounter Summary ---
Author Organization [facility] Address [address] [place] [address]. [place], [place] [address] [place] [address] Care Team Providers Care Stove Tender Name Role Phone Saumya Wells NP Primary Care Provider [phone] [phone] Encounter Details Date Type Department Care Team (Latest Contact Info) Description 01/11/2020 Scan HEALTH INFO SRVCS Scanned, Documents Social History Tobacco Use Types Packs/Day Years Used Date Smoking Tobacco: Never Assessed PHQ-2 Answer Date Recorded PHQ-2 Score - If the patient scores above 3, please move on to questions 3-9 2 07/07/2020 Comments Unknown Sex and Gender Information Value Date Recorded Sex Assigned at Not on file Legal Sex Female 9:29 AM FITNESS SERVICES MANAGER Gender Identity Not on file Sexual Orientation Not on file COVID-19 Exposure Response Date Recorded In the last month, have you been in contact with someone who was confirmed or suspected to have Coronavirus / COVID-19? No / Unsure 07/07/2020 1:56 PM FITNESS SERVICES MANAGER documented as of this encounter Plan of Treatment Not on file documented as of this encounter Visit Diagnoses Not on filedocumented in this encounter Care Teams Stove Tender Relationship Specialty Start Date End Date Saumya Wells NP [address] [place] [address] PCP - General NURSE PRACTITIONER 07/02/20 documented as of this encounter
--- OUTSIDE RECORDS SUMMARY | 2024-06-16 17:17 | XMS_ITS | Encounter Summary ---
Author Organization [facility] Address [address] [place] [address]. [place], [place] [address] [place] [address] Care Team Providers Care Engine Builder Name Role Phone Saumya Wells NP Primary Care Provider +1 [phone] Encounter Details Date Type Department Care Team (Late st Contact Info) Description 05/18/2021 Orders Only [facility] Medical Group Family Medicine - [place] [address] [facility] [address] [place], [place] [address] Chris Aquino MA Social History Tobacco Use Types Packs/Day [...] on file Legal Sex Female 9:29 AM HOSPITAL MEDICINE DIRECTOR Gender Identity Not on file Sexual Orientation Not on file documented as of this encounter Plan of Treatment Not on file documented as of this encounter Visit Diagnoses Diagnosis Hyperlipidemia, unspecified hyperlipidemia type documented in this encounter Additional Health Concerns Assessment Noted Time PHQ-9 Depression Total Score: 5 07/07/19 21 2:33 PM HOSPITAL MEDICINE DIRECTOR documented as of this encounter Care Teams Engine Builder Relationship Specialty Start Date End Date Saumya Wells NP [address] [place], [place] [address] PCP - General NURSE PRACTITIONER 07/02/20 documented as of this encounter
--- OUTSIDE RECORDS SUMMARY | 2024-06-16 17:17 | XMS_ITS | Encounter Summary ---
Author Organization [facility] Address [address] [place] [address]. [place], [place] [address] [place] [address] Care Team Providers Care Face Hardener Name Role Phone Saumya Wells NP Primary Care Provider +1 [phone] Encounter Details Date Type Department Care Team (Late st Contact Info) Description 04/09/2021 [place] [employer] Message Enc [facility] Medical Group Family Medicine - [place] [address] [facility] [address] [place], [place] [address] Saumya Wells NP [address] [place] [address] [place], [place] [address] RE: Medication Questions Social History Tobacco Use Types Packs/Day Years [...] on file Legal Sex Female 9:29 AM COAL AND ASH SUPERVISOR Gender Identity Not on file Sexual Orientation Not on file documented as of this encounter Plan of Treatment Not on file documented as of this encounter Visit Diagnoses Not on filedocumented in this encounter Additional Health Concerns Assessment Noted Time PHQ-9 Depression Total Score: 5 07/07/19 21 2:33 PM COAL AND ASH SUPERVISOR documented as of this encounter Care Teams Face Hardener Relationship Specialty Start Date End Date Saumya Wells NP [address] [place] [address] PCP - General NURSE PRACTITIONER 07/02/20 documented as of this encounter
--- OUTSIDE RECORDS SUMMARY | 2024-06-16 17:17 | XMS_ITS | Encounter Summary ---
Author Organization [facility] Address [address] [place] [address]. [place], [place] [address] [place] [address] Care Team Providers Care Cherry Grower Name Role Phone Saumya Wells NP Primary Care Provider +1 [phone] Encounter Details Date Type Department Care Team (Latest Contact Info) Description 10/22/2020 Scan HEALTH INFO SRVCS Scanned, Documents Social [...] on file Legal Sex Female 9:29 AM GUSSET RIPPER Gender Identity Not on file Sexual Orientation Not on file documented as of this encounter Plan of Treatment Not on file documented as of this encounter Visit Diagnoses Not on filedocumented in this encounter Additional Health Concerns Assessment Noted Time PHQ-9 Depression Total Score: 5 07/07/19 21 2:33 PM GUSSET RIPPER documented as of this encounter Care Teams Cherry Grower Relationship Specialty Start Date End Date Saumya Wells NP [address] [place] [address] PCP - General NURSE PRACTITIONER 07/02/20 documented as of this encounter
--- OUTSIDE RECORDS SUMMARY | 2024-06-16 17:17 | XMS_ITS | Encounter Summary ---
Author Organization [facility] Address [address] [place] [address]. [place], [place] [address] [place] [address] Care Team Providers Care Short Goods Drier Name Role Phone Saumya Wells MANAGER FINANCE Primary Care Provider [phone] [phone] Reason for Visit * Reason Comments Follow Up medication follow-up . She thinks the increase is somewhat working. Encounter Details Date Type Department Care Team (Late st Contact Info) Description 06/01/2021 9:00 AM PIPE STRIPPER Telemedicine [facility] Medical Group Family Medicine - [place] [address] [facility] [address] [place] [id number] Saumya Wells, WHIT[place] [address] [place] [address] [place] [id number] Follow Up (medication follow-up. She thinks the increase is somewhat working.) Social History Tobacco Use Types Packs/Day Years [...] on file Legal Sex Female 9:29 AM PIPE STRIPPER Gender Identity Not on file Sexual Orientation Not on file COVID-19 Exposure Response Date Recorded In the last month, have you been in contact with someone who was confirmed or suspected to have Coronavirus / COVID-19? No / Unsure 06/01/2021 8:33 AM PIPE STRIPPER documented as of this encounter Progress Notes * Saumya Wells, MANAGER FINANCE - 06/01/2021 9:00 AM CST Reason for Visit: Follow Up (medication follow-up. She thinks the increase is somewhat working.) History of Present Illness: Evelia is a 50-year-old female who presents for a video visit for follow-up on tolerance to sertraline. She is currently taking 50 mg daily. She reports some days are better than others. She states when she was taking in the past she had been on 100 mg daily and that is what dose she would like to begin taking. She is also trying to work on lifestyle changes, exercising to improve her anxiety and depression. She is not instertested in counseling at this time. Telemedicine Consent Discussed the following with the patient: The patient has chosen to receive care through the use oftelemedicine. Telemedicine enables health care providers at different locations to provided safe, effective, and convenient care through the use of technology. As with any health care service, there are risks associated with the use of telemedicine, including equipment failure, poor image resolution , and clinical information systems director issues. Patient also understands that a physical [...] patient aware that the same confidentiality and clinical information systems director practices apply. The patient joined the video visit from Home. I completed the virtual visit from Office. The following clinical staff helped with this visit MA: Chris Aquino . Total Time Spent in Minutes: 10 Medications: Current Outpatient Medications: ??? levothyroxine 100 MCG tablet, Take 1 tablet (100 mcg total) by mouth daily., Disp: 90 tablet, Rfl: 1 ??? rosuvastatin 40 MG tablet, Take 1 tablet (40 mg total) by mouth nightly at bedtime., Disp: 90 tablet, Rfl: 0 ??? sertraline 50 MG tablet, Take 1.5 tablets (75mg) daily for one week then increase to two tablets daily (100mg), Disp: 90 tablet, Rfl: 1 Allergies Allergen [...] Laterality Date ??? 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 Smoking status: Never Smoker ??? Smokeless tobacco: Never Used Vaping Use ??? Vaping Use: Never used Substance Use Topics ??? Alcohol use: Yes ??? Drug use: Never Family History Problem Relation Name Age of Onset ??? Hypertension Mother ??? Hypertension Father ??? Hyperlipidemia Father ??? Diabetes Maternal Grandmother ??? Heart Disease Maternal Grandmother ??? Other (tongue cancer) Maternal Grandmother ??? Heart Disease Paternal Grandfather ROS: Review of Systems Respiratory: Negative. Cardiovascular: Negative. Genitourinary: Negative. Psychiatric/Behavioral: Positive for depression. Negative for suicidal ideas. The patient is nervous/anxious. The patient does not have insomnia. Physical Exam Constitutional: General: She is not in acute distress. Appearance: Normal appearance. HENT: Head: Normocephalic. Pulmonary: Effort: No respiratory distress. Skin: General: Skin is dry. Neurological: Mental Status: She is oriented to person, place, and time. Psychiatric: Mood and Affect: Mood normal. Behavior: Behavior normal. Thought Content: Thought content normal. Judgment: Judgment normal. Assessment/Recommendations/Plan Encounter Diagnose(s) ICD-10-CM ICD-9-CM SNOMED CT(R) 1. 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 Encourage diet/ lifestyle changes to help improve anxiety/depression. Follow up: 2-3 weeks if not well controlled SAUMYA WELLS NP 06/01/2021 9:08 AM Cosigned by Des Johnson MD at 06/01/2021 10:51 AM PIPE STRIPPER STRIPPER STRIPPER documented in this encounter Plan of Treatment Not on file documented as of this encounter Visit Diagnoses Diagnosis Anxiety and depression Dysthymic disorder documented in this encounter Additional Health Concerns Assessment Noted Time PHQ-9 Depression Total Score: 5 07/07/19 21 2:33 PM PIPE STRIPPER documented as of this encounter Care Teams Short Goods Drier Relationship Specialty Start Date End Date Saumya Wells NP [address] [place] [address] PCP - General NURSE PRACTITIONER 07/02/20 documented as of this encounter
--- OUTSIDE RECORDS SUMMARY | 2024-06-16 17:17 | XMS_ITS | Encounter Summary ---
Author Organization [facility] Address [address] [place] [address]. [place], [place] [address] [place] [address] Care Team Providers Care Soda Worker Name Role Phone Saumya Wells NP Primary Care Provider [phone] [phone] Encounter Details Date Type Department Care Team (Latest Contact Info) Description 09/24/2020 Scan HEALTH INFO SRVCS Scanned, Documents Social [...] on file Legal Sex Female 9:29 AM MANUFACTURING WEAVER Gender Identity Not on file Sexual Orientation Not on file documented as of this encounter Plan of Treatment Not on file documented as of this encounter Visit Diagnoses Not on filedocumented in this encounter Additional Health Concerns Assessment Noted Time PHQ-9 Depression Total Score: 5 07/07/19 21 2:33 PM MANUFACTURING WEAVER documented as of this encounter Care Teams Soda Worker Relationship Specialty Start Date End Date Saumya Wells NP [address] [place] [address] PCP - General NURSE PRACTITIONER 07/02/20 documented as of this encounter
--- OUTSIDE RECORDS SUMMARY | 2024-06-16 17:17 | XMS_ITS | Encounter Summary ---
Author Organization [facility] Address [address] [place] [address]. [place], [place] [address] [place] [address] Care Team Providers Care Marine Resource Economist Name Role Phone Saumya Wells NP Primary Care Provider +1 [phone] Encounter Details Date Type Department Care Team (Latest Contact Info) Description 07/07/2020 Travel Social History Tobacco Use Types Packs/Day [...] on file Legal Sex Female 9:29 AM PATENTS EXAMINER Gender Identity Not on file Sexual Orientation Not on file COVID-19 Exposure Response Date Recorded In the last month, have you been in contact with someone who was confirmed or suspected to have Coronavirus / COVID-19? No / Unsure 07/07/2020 1:56 PM PATENTS EXAMINER documented as of this encounter Plan of Treatment Not on file documented as of this encounter Visit Diagnoses Not on filedocumented in this encounter Additional Health Concerns Assessment Noted Time PHQ-9 Depression Total Score: 5 07/07/19 21 2:33 PM PATENTS EXAMINER documented as of this encounter Care Teams Marine Resource Economist Relationship Specialty Start Date End Date Saumya Wells NP [address] [place] [address] PCP - General NURSE PRACTITIONER 07/02/20 documented as of this encounter
--- OUTSIDE RECORDS SUMMARY | 2024-06-16 17:17 | XMS_ITS | Encounter Summary ---
Author Organization [facility] Address [address] [place] [address]. [place], [place] [address] [place] [address] Care Team Providers Care Boarding House Cook Name Role Phone Saumya Wells NP Primary Care Provider [phone] [phone] Encounter Details Date Type Department Care Team (Late st Contact Info) Description 05/18/2021 ActSocial Message Enc [facility] Family Medicine - [place] [address] [facility] [address] [place], [place] [id number] Saumya Wells NP [address] [place], [place] [address] Rosuvastatin Rx Social History Tobacco Use Types Packs/Day Years [...] on file Legal Sex Female 9:29 AM PROPOSAL REVIEW ANALYST Gender Identity Not on file Sexual Orientation Not on file documented as of this encounter Plan of Treatment Not on file documented as of this encounter Visit Diagnoses Not on filedocumented in this encounter Additional Health Concerns Assessment Noted Time PHQ-9 Depression Total Score: 5 07/07/19 21 2:33 PM PROPOSAL REVIEW ANALYST documented as of this encounter Care Teams Boarding House Cook Relationship Specialty Start Date End Date Saumya Wells NP [address] [place] [address] PCP - General NURSE PRACTITIONER 07/02/20 documented as of this encounter
--- OUTSIDE RECORDS SUMMARY | 2024-06-16 17:17 | XMS_ITS | Encounter Summary ---
Author Organization [facility] Address [address] [place] [address]. 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 documented in this encounter Plan of Treatment Not on file documented as of this encounter Procedures Procedure Name Priority Date/Time Associated Diagnosis Comments TSH W/REFLEX Routine 01/09/2021 9:43 AM CDT Hypothyroidism, unspecified type COMPREHENSIVE METABOLIC PANEL Routine 01/09/2021 9:43 AM CDT Hyperlipidemia, unspecified hyperlipidemia type Anxiety and depression LIPID PANEL Routine 01/09/2021 9:43 AM CDT Hyperlipidemia, unspecified hyperlipidemia type CBC W/DIFF AUTOMATED Routine 01/09/2021 9:43 AM CDT Hyperlipidemia, unspecified hyperlipidemia type Anxiety and depression documented in this encounter Results * (ABNORMAL) TSH W/REFLEX (01/09/2021 9:43 AM CDT) TSH 0.24(L) mIU/L [facility] Comment: ?Reference Range ?> or = 20 Years ??0.40-4.50 ? Ranges ?First trimester ?0.26-2.66 ?Second trimester ?? 0.55-2.73 ?Third trimester ?0.43-2.91 FREE T4 1.5 0.8 - 1.8 ng/dL [facility] 01/09/2021 9:43 AM CDT 01/09/2021 9:44 AM CDT Narrative [facility] - 01/10/2021 3:47 AM CDT PT VARIFIED ALL INFO FASTING:YES FASTING: YES us Saumyakieran Wells ADULT DAY CARE WORKER LABORATORY Final Res ult [facility] [id number] [place] [id number] * (ABNORMAL) LIPID PANEL (01/09/2021 9:43 AM CDT) CHOLESTEROL 213(H) <200 mg/dL [facility] HDL 51 > OR = 50 mg/dL [facility] TRIGLYCERIDES 187(H) <150 mg/dL [facility] LDL (CALCULATED) 130(H) mg/dL (calc) [facility] Comment: Reference [...] LDL-C. Jayro SS et al. JULIETTE. 2013;310(19): 5987-4876 (http://education.Maven7/faq/GYJ861) CHOL/HDL RATIO 4.2 <5.0 (calc) [facility] NON HDL CHOLESTEROL 162(H) <130 mg/dL (calc) [facility] Comment: For patients with diabetes plus 1 major ASCVD risk factor, treating to a non-HDL-C goal of <100 mg/dL (LDL-C of <70 mg/dL) is considered a therapeutic option. 01/09/2021 9:43 AM CDT 01/09/2021 9:44 AM CDT Narrative [facility] - 01/10/2021 3:47 AM CDT PT VARIFIED ALL INFO FASTING:YES FASTING: YES Saumya Wells ADULT DAY CARE WORKER LABORATORY Final Res ult [facility] [address] [address], [place] [address] * (ABNORMAL) COMPREHENSIVE METABOLIC PANEL (01/09/2021 9:43 AM CDT) [facility] GLUCOSE 100(H) 65 - 99 mg/dL [facility] Comment: ? Fasting reference interval For someone without known diabetes, a glucose value between 100 and 125 mg/dL is consistent with prediabetes and should be confirmed with a follow-up test. BUN 17 7 - 25 mg/dL [facility] CREATININE S/P/B 0.76 0.50 - 1.05 mg/dL [facility] Comment: For patients >49 years of age, the reference limit for Creatinine is approximately 13% higher for people identified as -[place]. EGFR NON-AFR. AMER. 91 > OR = 60 mL/min/1 .73m2 [facility] EGFR AFR. AMER. 105 > OR = 60 mL/min/1 .73m2 [facility] BUN CREATININE RATIO NOT APPLICABLE 6 - 22 (calc) [facility] SODIUM S/P/B 140 135 - 146 mmol/L [facility] POTASSIUM S/P/B 4.8 3.5 - 5.3 mmol/L [facility] CHLORIDE S/P/B 105 98 - 110 mmol/L [facility] CO2 28 20 - 32 mmol/L [facility] CALCIUM S/P/B 9.9 8.6 - 10.4 mg/dL [facility] TOTAL PROTEIN S/P/B 6.6 6.1 - 8.1 g/dL [facility] ALBUMIN S/P/B 4.5 3.6 - 5.1 g/dL [facility] GLOBULIN 2.1 1.9 - 3.7 g/dL (calc) [facility] ALBUMIN/GLOBULIN RATIO 2.1 1.0 - 2.5 (calc) [facility] BILIRUBIN TOTAL S/P/B 0.6 0.2 - 1.2 mg/dL [facility] ALKALINE PHOSPHATASE S/P/B 100 37 - 153 U/L [facility] AST 17 10 - 35 U/L [facility] ALT 27 6 - 29 U/L [facility] 01/09/2021 9:43 AM CDT 01/09/2021 9:44 AM CDT Narrative [facility] - 01/10/2021 3:47 AM CDT PT VARIFIED ALL INFO FASTING:YES FASTING: YES us Saumya Wells ADULT DAY CARE WORKER LABORATORY Final Res ult [facility] [address] [address] [facility] [place] [address] * CBC W/DIFF AUTOMATED (01/09/2021 9:43 AM CDT) WBC 6.3 3.8 - 10.8 Thousand/ uL [facility] RBC 4.83 3.80 - 5.10 Million/u L [facility] HGB 14.7 11.7 - 15.5 g/dL [facility] HCT 44.3 35.0 - 45.0 % [facility] MCV 91.7 80.0 - 100.0 fL [facility] MCH 30.4 27.0 - 33.0 pg [facility] MCHC 33.2 32.0 - 36.0 g/dL [facility] RDW 12.7 11.0 - 15.0 % [facility] PLT 173 140 - 400 Thousand/ uL [facility] MPV 11.6 7.5 - 12.5 fL [facility] ABS. NEUTROPHILS 3,641 1,500 - 7,800 cells/uL [facility] ABS. BANDS CANCELED 0 - 750 cells/uL [facility] Comment:Result canceled by t he ancillary. ABS. METAMYELOCYTES CANCELED 0 cells/uL [facility] Comment:Result canceled by t he ancillary. ABS. MYELOCYTES CANCELED 0 cells/uL [facility] Comment:Result canceled by t he ancillary. ABS. PROMYELOCYTES CANCELED 0 cells/uL [facility] Comment:Result canceled by t he ancillary. ABS. LYMPHOCYTES 2,104 850 - 3,900 cells/uL [facility] ABS. MONOCYTES 435 200 - 950 cells/uL [facility] ABS. EOSINOPHILS 88 15 - 500 cells/uL [facility] ABS. BASOPHILS 32 0 - 200 cells/uL [facility] ABS. BLASTS CANCELED 0 cells/uL [facility] Comment:Result canceled by t he ancillary. ABS. NUCLEATED RBC'S CANCELED 0 cells/uL [facility] Comment:Result canceled by t he ancillary. SEG NEUTROPHILS 57.8 % [facility] BANDS CANCELED % [facility] Comment:Result canceled by t he ancillary. METAMYELOCYTES CANCELED % [facility] Comment:Result canceled by t he ancillary. MYELOCYTES CANCELED % [facility] Comment:Result canceled by t he ancillary. PROMYELOCYTES CANCELED % [facility] Comment:Result canceled by t he ancillary. LYMPHOCYTES 33.4 % [facility] REACTIVE LYMPHS CANCELED 0 - 10 % [facility] Comment:Result canceled by t he ancillary. MONOCYTES 6.9 % [facility] EOSINOPHILS 1.4 % [facility] BASOPHILS 0.5 % [facility] BLASTS CANCELED % [facility] Comment:Result canceled by t he ancillary. NRBC CANCELED 0 /100 WBC [facility] Comment:Result canceled by t he ancillary. CBC COMMENT CANCELED [facility] Comment:Result canceled by t he ancillary. 01/09/2021 9:43 AM CDT 01/09/2021 9:44 AM CDT Narrative [facility] - 01/10/2021 3:47 AM CDT PT VARIFIED ALL INFO FASTING:YES FASTING: YES Saumya Wells ADULT DAY CARE WORKER LABORATORY Final Res ult [facility] [id number] [place] [phone] documented in this encounter Visit Diagnoses Diagnosis Hyperlipidemia, unspecified hyperlipidemia type- Primary Hypothyroidism, unspecified type Anxiety and depression Dysthymic disorder documented in this encounter Additional Health Concerns Assessment Noted Time PHQ-9 Depression Total Score: 5 07/07/19 21 2:33 PM SECURITY SYSTEM TECHNICIAN documented as of this encounter Care Teams Dye Operator Relationship Specialty Start Date End Date Saumya Wells, WHITNEY [address] [place] [address] PCP - General NURSE PRACTITIONER 07/02/20 documented as of this encounter
--- OUTSIDE RECORDS SUMMARY | 2024-06-16 17:17 | XMS_ITS | Encounter Summary ---
Author Organization [facility] Address [address] [place] [address]. 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 No / Unsure 07/07/2020 1:56 PM PAPER AND PULP MILL WORKER documented as of this encounter Plan of Treatment Not on file documented as of this encounter Procedures Procedure Name Priority Date/Time Associated Diagnosis Comments OUTSIDE LAB (SCAN ORDER) 07/28/2020 OUTSIDE LAB (SCAN ORDER) 07/28/2020 documented in this encounter Results * OUTSIDE LAB (SCAN) (07/28/2020) 07/28/2020 Narrative 07/28/2020 Ordered by an unspecified provider. us Documents Scanned SCANNING Edited Result - Final * OUTSIDE LAB (SCAN) (07/28/2020) 07/28/2020 Narrative 07/28/2020 Ordered by an unspecified provider. us Documents Scanned SCANNING Edited Result - Final documented in this encounter Visit Diagnoses Not on filedocumented in this encounter Additional Health Concerns Assessment Noted Time PHQ-9 Depression Total Score: 5 07/07/19 21 2:33 PM PAPER AND PULP MILL WORKER documented as of this encounter Care Teams Senior Data Analyst Relationship Specialty Start Date End Date Saumya Wells NP [address] [place] [address] PCP - General NURSE PRACTITIONER 07/02/20 documented as of this encounter
--- OUTSIDE RECORDS SUMMARY | 2024-06-16 17:17 | XMS_ITS | Encounter Summary ---
Author Organization [facility] Address [address] [place] [address]. [place] [address] Care Team Providers Care Member Service Representative Name Role Phone Saumya Wells NP Primary Care Provider [phone] Reason for Visit * Reason Comments Lab (SCAN) Encounter Details Date Type Department Care Team (Latest Contact Info) Description 01/17/2020 Scan HEALTH INFO SRVCS Scanned, Documents Lab (SCAN) Social History Tobacco Use Types Packs/Day Years Used Date Smoking Tobacco: Never Assessed PHQ-2 Answer Date Recorded PHQ-2 Score - If the patient scores above 3, please move on to questions 3-9 2 07/07/2020 Comments Unknown Sex and Gender Information Value Date Recorded Sex Assigned at Not on file 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 No / Unsure 07/07/2020 1:56 PM COMPUTER SCIENCE INSTRUCTOR documented as of this encounter Plan of Treatment Not on file documented as of this encounter Procedures Procedure Name Priority Date/Time Associated Diagnosis Comments OUTSIDE LAB (SCAN ORDER) 01/17/2020 documented in this encounter Results * OUTSIDE LAB (SCAN) (01/17/2020) 01/17/2020 Narrative 01/17/2020 Ordered by an unspecified provider. us Documents Scanned SCANNING Final Result documented in this encounter Visit Diagnoses Not on filedocumented in this encounter Care Teams Member Service Representative Relationship Specialty Start Date End Date Saumya Wells NP [address] [place] [address] PCP - General NURSE PRACTITIONER 07/02/20 documented as of this encounter
--- OUTSIDE RECORDS SUMMARY | 2024-06-16 17:17 | XMS_ITS | Encounter Summary ---
Author Organization [facility] Address [address] [place] [address]. [place] [address] Care Team Providers Care Dietetic Aide Name Role Phone Saumya Wells NP Primary Care Provider [phone] [phone] Reason for Visit * Reason Comments ECG (SCAN) Encounter Details Date Type Department Care Team (Latest Contact Info) Description 12/10/2017 Scan HEALTH INFO SRVCS Scanned, Documents ECG (SCAN) Social History Tobacco Use Types Packs/Day Years Used Date Smoking Tobacco: Never Assessed PHQ-2 Answer Date Recorded PHQ-2 Score - If the patient scores above 3, please move on to questions 3-9 2 07/07/2020 Comments Unknown Sex and Gender Information Value Date Recorded Sex Assigned at Not on file 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 No / Unsure 07/07/2020 1:56 PM ADJUNCT POLITICAL SCIENCE INSTRUCTOR documented as of this encounter Plan of Treatment Not on file documented as of this encounter Procedures Procedure Name Priority Date/Time Associated Diagnosis Comments ECG GENERIC (SCAN ORDER) 12/10/2017 documented in this encounter Results * ECG GENERIC (12/10/2017) 12/10/2017 Narrative 12/10/2017 Ordered by an unspecified provider. us Documents Scanned SCANNING Final Result documented in this encounter Visit Diagnoses Not on filedocumented in this encounter Care Teams Dietetic Aide Relationship Specialty Start Date End Date Saumya Wells NP [address] [place] [address] PCP - General NURSE PRACTITIONER 07/02/20 documented as of this encounter
--- OUTSIDE RECORDS SUMMARY | 2024-06-16 17:17 | XMS_ITS | Encounter Summary ---
Author Organization [facility] Address [address] [place] [address]. 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 No / Unsure 06/01/2021 8:33 AM SHIPS EQUIPMENT ENGINEER documented as of this encounter Plan of Treatment Not on file documented as of this encounter Visit Diagnoses Not on filedocumented in this encounter Additional Health Concerns Assessment Noted Time PHQ-9 Depression Total Score: 5 07/07/19 21 2:33 PM SHIPS EQUIPMENT ENGINEER documented as of this encounter Care Teams Drug And Alcohol Treatment Specialist Relationship Specialty Start Date End Date Saumya Wells NP [address] [place] [address] PCP - General NURSE PRACTITIONER 07/02/20 documented as of this encounter
--- OUTSIDE RECORDS SUMMARY | 2024-06-16 17:17 | XMS_ITS | Encounter Summary ---
Author Organization [facility] Address [address] [place] [address]. [place], [place] [id number] [place] [id number] Care Team Providers Care Furnace Keeper Name Role Phone Saumya Wells NP Primary Care Provider [phone] Reason for Visit * Reason Comments Physical est care, blood work Encounter Details Date Type Department Care Team (Late st Contact Info) Description 07/07/2020 2:20 PM REAL ESTATE SITE ANALYST Office Visit [facility] Family Medicine - [place] [address] [facility] [address] [place] [address] [phone] Saumya Wells, SWITCHBOARD MECHANIC [address] [place] [address] [phone] Physical (est care, blood work) Social History Tobacco Use Types Packs/Day Years [...] on file Legal Sex Female 9:29 AM REAL ESTATE SITE ANALYST Gender Identity Not on file Sexual Orientation Not on file COVID-19 Exposure Response Date Recorded In the last month, have you been in contact with someone who was confirmed or suspected to have Coronavirus / COVID-19? No / Unsure 07/07/2020 1:56 PM REAL ESTATE SITE ANALYST documented as of this encounter Last Filed Vital Signs Vital Sign Reading Time Taken Comments Blood Pressure 122/76 07/07/2020 2:26 PM REAL ESTATE SITE ANALYST Pulse 83 07/07/2020 2:26 PM REAL ESTATE SITE ANALYST Temperature 36.3 ??C (97.3 ??F) 07/07/2020 2:26 PM CS T Respiratory Rate 18 07/07/2020 2:26 PM REAL ESTATE SITE ANALYST Oxygen Saturation 97% 07/07/2020 2:26 PM REAL ESTATE SITE ANALYST Inhaled Oxygen Concentration - - Weight 87.5 kg (193 lb) 07/07/2020 2:26 PM REAL ESTATE SITE ANALYST Height 157.5 cm (5' 2 ) 07/07/2020 2:26 PM REAL ESTATE SITE ANALYST Body Mass Index 35.3 07/07/2020 2:26 PM REAL ESTATE SITE ANALYST documented in this encounter Patient Instructions * Patient Instructions* Saumya Wells NP - 07/07/2020 2:20 PM REAL ESTATE SITE ANALYST Evelia, it was great meeting you today! Thank you for choosing [facility] for your primary care needs. Please have your labs done fasting for 8-10 hours before getting done. Small sips of water are ok before your labs. You will be notified once your lab results are back. Follow up in 6 months for your next checkup. ESTATE SITE ANALYST documented in this encounter Progress Notes * Saumya Wells NP - 07/07/2020 2:20 PM CSTSummary: est care Reason for Visit: Physical (est care, blood work) History of Present Illness: Evelia is a 49- year old well female who presents to office to establish care and requesting routinelabs. Her past PCP retired. She reports hx of hyperlipidemia, hypothyroidism, and vitamin D deficency that she is currently taking medication for. She does report hx and some current issues with anxiety/depression but she does not feel that she needs to begin medication at this time but is going to monitor. She denies SI/HI. 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 She follows with Dr. Wesley for her well women care. She is up to date on her pap smear and her mammogram for this year. She is perimenopausal. She is due for her Colonoscopy this year. She is and has three children. Follows an overall healthy diet, has began walking with family, working on weight loss. Recently lost 10 pounds. She denies any complaints of concerns. Medications: Current Outpatient Medications: ??? atorvastatin 20 MG tablet, Take 20 mg by mouth daily., Disp: , Rfl: ??? levothyroxine 100 MCG tablet, Take 100 mcg by mouth daily., Disp: , Rfl: Allergies Allergen Reactions ??? Penicillins Hives and Swelling Past Medical History: Diagnosis Date ??? Anxiety and depression ??? Disease of thyroid gland ??? Hyperlipidemia OB History Para Term AB Living 3 3 0 0 0 0 SAB TAB Ectopic Molar Multiple Live Births 0 0 0 0 0 0 Past Surgical History: Procedure Laterality Date ??? ANTERIOR CRUCIATE LIGAMENT REPAIR 2011 Social History Tobacco Use ??? Smoking status: Never Smoker ??? Smokeless tobacco: Never Used Substance Use Topics ??? Alcohol use: Yes ??? Drug use: Never Family History Problem Relation Name Age of Onset ??? Hypertension Mother ??? Hypertension Father ??? Diabetes Maternal Grandmother ??? Heart Disease Maternal Grandmother ??? Other (tongue cancer) Maternal Grandmother ??? Heart Disease Paternal Grandfather ROS: Review of Systems Constitutional: Negative for [...] does not have insomnia. Physical Exam Constitutional: She is oriented to person, place, and time. She appears well- developed and well-nourished. No distress. HENT: Head: Normocephalic and atraumatic. Right Ear: Hearing, tympanic membrane, external ear and ear canal normal. Left Ear: Hearing, tympanic membrane, external ear and ear canal normal. Nose: Nose normal. Mouth/Throat: Uvula is midline and mucous membranes are normal. No oropharyngeal exudate, posteriororopharyngeal edema or posterior oropharyngeal erythema. Eyes: Pupils are equal, round, and reactive to light. Lids are normal. Lids are everted and swept, no foreign bodies found. No scleral icterus. Neck: Normal range of motion. Neck supple. Carotid bruit is not present. No tracheal deviation and no edema present. No thyromegaly present. Cardiovascular: Normal rate, regular rhythm, normal heart sounds and intact distal pulses. No murmur heard. Pulmonary/Chest: Effort normal and breath sounds normal. No respiratory distress. She has no wheezes. She has no rales. She exhibits no tenderness. Abdominal: Soft. Bowel sounds are normal. She exhibits no distension and no mass. There is no abdominal tenderness. There is no rebound and no guarding. Musculoskeletal: General: No tenderness, deformity or edema. Lymphadenopathy: She has no cervical adenopathy. Neurological: She is alert and oriented to person, place, and time. She has normal reflexes. Skin: Skin is warm and dry. No rash noted. No erythema. No pallor. Psychiatric: She has a normal mood and affect. Her behavior is normal. Judgment and thought contentnormal. Filed Vitals: 07/07/20 1426 BP: 122/76 Pulse: 83 Resp: 18 Temp: 97.3 ??F (36.3 ??C) TempSrc: Temporal SpO2: 97% Weight: 87.5 kg (193 lb) Height: 5' 2 (1.575 m) Screening forms: PHQ-9: PHQ-9: Over the last two weeks, how often have you been bothered by any of the following problems? 07/07/2020 LITTLE INTEREST OR PLEASURE IN DOING THINGS 1-Several Days FEELING DOWN, DEPRESSSED,OR HOPELESS 1-Several Days PHQ2 DEPRESSION TOTAL SCORE 2 TROUBLE FALLING OR STAYING ASLEEP OR SLEEPING TOO MUCH 0-Not at All FEELING TIRED OR HAVING LITTLE ENERGY 1-Several Days POOR APPETITE OR OVEREATING 0-Not at All FEELING BAD ABOUT YOURSELF 0-Not at All TROUBLE CONCENTRATING ON THINGS 2-More than half the days MOVING OR SPEAKING SO SLOWLY THAT OTHER PEOPLE COULD HAVE NOTICED 0-Not at All THOUGHTS THAT YOU WOULD BE BETTER OFF 0-Not at All DEPRESSION SCREENING TOTAL SCORE 5 ANNABEL-7 (Generalized Anxiety Disorder) Screening ANNABEL-7 07/07/2020 [...] with other people? somewhat difficult Assessment/Recommendations/Plan 1. Encounter for routine adult health examination without abnormal findings - CBC W/DIFF AUTOMATED; Future - COMPREHENSIVE METABOLIC PANEL; Future 2. Hyperlipidemia, unspecified hyperlipidemia type - LIPID PANEL; Future 3. Vitamin D deficiency - Will check baseline for proper dosing. - VITAMIN D, 25 OH; Future 4. Hypothyroidism, unspecified type - TSH W/REFLEX; Future 5. Screen for colon cancer -Declined colonoscopy at this time but accepted cologuard testing. - COLOGUARD ([employer]ENCE) 6. Need for hepatitis C screening test - HEPATITIS C ANTIBODY W/RFX TO HCV RNA ([facility]); Future 7. Anxiety and depression - PHQ-9 and ANNABEL-7 form filled out today in office. Pt will monitor at this time. She has been doingmedication daily. Recommend exercise, and counseling as well. Pt to follow up if not improving. 8. Encounter for medical examination to establish care Encourage following a low fat, low carb [...] vaccinations, blood pressure, weight at today's visit. Follow up: 6 months Health Reminders Influenza- up to date, need record Tdap- encouraged, declined today Shingrix-encouraged, declined today Mammogram- 2020, up to date, normal findings, ordered from Dr. Maryjane SALDIVAR/Pap- up to date, follows with Dr. Wesley Routine labs- orders placed. Weight- encourage weight loss, pt states has recently lost 10 pounds SAUMYA WELLS NP 07/07/2020 3:42 PM Cosigned by Des Johnson MD at 07/08/2020 7:06 AM REAL ESTATE SITE ANALYST ESTATE SITE ANALYST ESTATE SITE ANALYST ESTATE SITE ANALYST documented in this encounter Plan of Treatment Not on file documented as of this encounter Procedures Procedure Name Priority Date/Time Associated Diagnosis Comments HEPATITIS C ANTIBODY W/RFX TO HCV RNA Routine 07/28/2020 9:08 AM REAL ESTATE SITE ANALYST TEST AUTHORIZATION Routine 07/28/2020 9: 08 AM REAL ESTATE SITE ANALYST TSH W/REFLEX Routine 07/28/2020 9:08 AM REAL ESTATE SITE ANALYST Hypothyroidism, unspecified type VITAMIN D, 25 OH TOTAL Routine 07/28/2020 9:08 AM REAL ESTATE SITE ANALYST HEMOGLOBIN, GLYCOSYLATED Routine 07/28/2020 9:08 AM REAL ESTATE SITE ANALYST COMPREHENSIVE METABOLIC PANEL Routine 07/28/2020 9:08 AM REAL ESTATE SITE ANALYST Encounter for routine adult health examination without abnormal findings LIPID PANEL Routine 07/28/2020 9:08 AM REAL ESTATE SITE ANALYST Hyperlipidemia, unspecified hyperlipidemia type CBC W/DIFF AUTOMATED Routine 07/28/2020 9:08 AM REAL ESTATE SITE ANALYST Encounter for routine adult health examination without abnormal findings COLOGUARD ([employer]ACT SCIENCE) Routine 07/22/2020 7:25 AM REAL ESTATE SITE ANALYST Screen for colon cancer documented in this encounter Results * HEMOGLOBIN, GLYCOSYLATED (07/28/2020 9:08 AM REAL ESTATE SITE ANALYST) HGB A1C 5.1 <5.7 % of total Hgb [facility] Comment: For the purpose of screening for the presence of diabetes: <5.7% ? Consistent with the absence of diabetes 5.7-6.4% ?Consistent with increased risk for diabetes ?(prediabetes) > or =6.5% ??Consistent with diabetes This assay result is consistent with a decreased risk of diabetes. Currently, no consensus exists regarding use of hemoglobin A1c for diagnosis of diabetes in children. According to [place] Diabetes Association (ADA) guidelines, hemoglobin A1c <7.0% represents optimal control in non- diabetic patients. Different metrics may apply to specific patient populations. Standards of Medical Care in Diabetes(ADA). ?? 07/28/2020 9:08 AM REAL ESTATE SITE ANALYST 07/28/2020 9:11 AM REAL ESTATE SITE ANALYST Narrative [facility] - 07/31/2020 3:02 AM REAL ESTATE SITE ANALYST FASTING:YES FASTING: YES us Saumya Wells NP LABORATORY Final Res ult [facility] [address] [place] [place] [phone] * TEST AUTHORIZATION (07/28/2020 9:08 AM REAL ESTATE SITE ANALYST) TEST NAME: HEMOGLOBIN A1c [facility] REFERENCE LAB TEST #: [id number] [facility] CLIENT ACCN NO. MISHA H [facility] Report Received [facility] Comment: The laboratory testing on this patient was verbally requested or confirmed by the ordering physician or his or her authorized licensing representative after contact with an employee of [facility]. Federal regulations require that we maintain on file written authorization for all laboratory testing. ??Accordingly we are asking that the ordering physician or his or her authorized licensing representative sign a copy of this report and promptly return it to the client engagement manager. Signature: Comment: [facility] Comment: Fax number: [phone] 07/28/2020 9:08 AM REAL ESTATE SITE ANALYST 07/28/2020 9:11 AM REAL ESTATE SITE ANALYST Narrative [facility] - 07/31/2020 3:02 AM REAL ESTATE SITE ANALYST FASTING:YES FASTING: YES us Saumya Wells SWITCHBOARD MECHANIC LABORATORY Final Res ult [facility] [address] [place] [address] * VITAMIN D, 25 OH TOTAL (07/28/2020 9:08 AM REAL ESTATE SITE ANALYST) VITAMIN D 25 HYDROXY TOTAL S/P/B 41 30 - 100 ng/mL [facility] Comment: Vitamin D Status ? 25-OH Vitamin D: Deficiency: ?<20 ng/mL Insufficiency: ? 20 - 29 ng/mL Optimal: ? > or = 30 ng/mL For 25-OH Vitamin D testing on patients on D2-supplementation and patients for whom quantitation of D2 and D3 fractions is required, the [facility] 25-OH VIT D, (D2,D3), LC/MS/MS is recommended: order code [id number] (patients >2yrs). See Note 1 Note 1 For additional information, please refer to http://[employer].[facility]/faq/EGP787 (This link is being provided for informational/ educational purposes only.) 07/28/2020 9:08 AM REAL ESTATE SITE ANALYST 07/28/2020 9:11 AM REAL ESTATE SITE ANALYST Narrative [facility] - 07/31/2020 3:02 AM REAL ESTATE SITE ANALYST FASTING:YES FASTING: YES Saumyakieran Wells SWITCHBOARD MECHANIC LABORATORY Final Res ult Performing Organization Address [facility] Co de Phone Number [facility] [address] [facility] [place] [address] * HEPATITIS C ANTIBODY W/RFX TO HCV RNA (07/28/2020 9:08 AM REAL ESTATE SITE ANALYST) HEPATITIS C AB NON-REACTI VE NON-REACT MAC [facility] SIGNAL TO CUTOFF 0.01 <[address] [facility] Comment: HCV antibody was non-reactive. There is no laboratory evidence of HCV infection. In most cases, no further action is required. However, if recent HCV exposure is suspected, a test for HCV RNA (test code 53874) is suggested. For additional information please refer to http://[employer]/faq/PJO90d0 (This link is being provided for informational/ educational purposes only.) 07/28/2020 9:08 AM REAL ESTATE SITE ANALYST 07/28/2020 9:11 AM REAL ESTATE SITE ANALYST Narrative [facility] - 07/31/2020 3:02 AM REAL ESTATE SITE ANALYST FASTING:YES FASTING: YES Saumya Wells SWITCHBOARD MECHANIC LABORATORY Final Res ult Performing Organization Address [facility] Co de Phone Number [facility] [address] [place] [address] * TSH W/REFLEX (07/28/2020 9:08 AM REAL ESTATE SITE ANALYST) TSH 1.10 mIU/L [facility] Comment: ?Reference Range ?> or = 20 Years ??0.40-4.50 ? Ranges ?First trimester ?0.26-2.66 ?Second trimester ?? 0.55-2.73 ?Third trimester ?0.43-2.91 07/28/2020 9:08 AM REAL ESTATE SITE ANALYST 07/28/2020 9:11 AM REAL ESTATE SITE ANALYST Narrative [facility] - 07/31/2020 3:02 AM REAL ESTATE SITE ANALYST FASTING:YES FASTING: YES Saumya Wells NP LABORATORY Final Res ult [facility] [address] [place] [address] * (ABNORMAL) LIPID PANEL (07/28/2020 9:08 AM REAL ESTATE SITE ANALYST) CHOLESTEROL 222(H) <200 mg/dL [facility] HDL 50 > OR = 50 mg/dL [facility] TRIGLYCERIDES 185(H) <150 mg/dL [facility] LDL (CALCULATED) 140(H) mg/dL (calc) [facility] Comment: Reference [...] LDL-C. Jayro RODRIGES et al. JULIETTE. 2013;310(19): 6611-3593 (http://education.[facility]/faq/HAO781) CHOL/HDL RATIO 4.4 <5.0 (calc) [facility] NON HDL CHOLESTEROL 172(H) <130 mg/dL (calc) [facility] Comment: For patients with diabetes plus 1 major ASCVD risk factor, treating to a non-HDL-C goal of <100 mg/dL (LDL-C of <70 mg/dL) is considered a therapeutic option. 07/28/2020 9:08 AM REAL ESTATE SITE ANALYST 07/28/2020 9:11 AM REAL ESTATE SITE ANALYST Narrative [facility] - 07/31/2020 3:02 AM REAL ESTATE SITE ANALYST FASTING:YES FASTING: YES Saumya Wells NP LABORATORY Final Res ult [facility] [address] [place] [address] * (ABNORMAL) COMPREHENSIVE METABOLIC PANEL (07/28/2020 9:08 AM REAL ESTATE SITE ANALYST) Pathologist [facility] GLUCOSE 101(H) 65 - 99 mg/dL [facility] Comment: ? Fasting reference interval For someone without known diabetes, a glucose value between 100 and 125 mg/dL is consistent with prediabetes and should be confirmed with a follow-up test. BUN 21 7 - 25 mg/dL [facility] CREATININE S/P/B 0.96 0.50 - 1.05 mg/dL [facility] Comment: For patients >49 years of age, the reference limit for Creatinine is approximately 13% higher for people identified as -[place]. EGFR NON-AFR. AMER. 69 > OR = 60 mL/min/1 .73m2 [facility] EGFR AFR. AMER. 80 > OR = 60 mL/min/1 .73m2 [facility] BUN CREATININE RATIO NOT APPLICABLE 6 - 22 (calc) [facility] SODIUM S/P/B 140 135 - 146 mmol/L [facility] POTASSIUM S/P/B 4.5 3.5 - 5.3 mmol/L [facility] CHLORIDE S/P/B 104 98 - 110 mmol/L [facility] CO2 25 20 - 32 mmol/L [facility] CALCIUM S/P/B 10.1 8.6 - 10.4 mg/dL [facility] TOTAL PROTEIN S/P/B 7.0 6.1 - 8.1 g/dL [facility] ALBUMIN S/P/B 4.7 3.6 - 5.1 g/dL [facility] GLOBULIN 2.3 1.9 - 3.7 g/dL (calc) [facility] ALBUMIN/GLOBULIN RATIO 2.0 1.0 - 2.5 (calc) [facility] BILIRUBIN TOTAL S/P/B 0.5 0.2 - 1.2 mg/dL [facility] ALKALINE PHOSPHATASE S/P/B 94 37 - 153 U/L [facility] AST 15 10 - 35 U/L [facility] ALT 20 6 - 29 U/L [facility] 07/28/2020 9:08 AM REAL ESTATE SITE ANALYST 07/28/2020 9:11 AM REAL ESTATE SITE ANALYST Narrative [facility] - 07/31/2020 3:02 AM REAL ESTATE SITE ANALYST FASTING:YES FASTING: YES us Saumya Wells SWITCHBOARD MECHANIC LABORATORY Final Res ult [facility] [address] [place] [address] * (ABNORMAL) CBC W/DIFF AUTOMATED (07/28/2020 9:08 AM REAL ESTATE SITE ANALYST) WBC 6.2 3.8 - 10.8 Thousand/ uL [facility] RBC 5.06 3.80 - 5.10 Million/u L [facility] HGB 15.6(H) 11.7 - 15.5 g/dL [facility] HCT 46.8(H) 35.0 - 45.0 % [facility] MCV 92.5 80.0 - 100.0 fL [facility] MCH 30.8 27.0 - 33.0 pg [facility] MCHC 33.3 32.0 - 36.0 g/dL [facility] RDW 13.0 11.0 - 15.0 % [facility] PLT 175 140 - 400 Thousand/ uL [facility] MPV 11.8 7.5 - 12.5 fL [facility] ABS. NEUTROPHILS 3,658 1,500 - 7,800 cells/uL [facility] [...] canceled by t he ancillary. ABS. LYMPHOCYTES 2,052 850 - 3,900 cells/uL [facility] ABS. MONOCYTES 360 200 - 950 cells/uL [facility] ABS. EOSINOPHILS 99 15 - 500 cells/uL [facility] ABS. BASOPHILS 31 0 - 200 cells/uL [facility] ABS. BLASTS CANCELED 0 cells/uL [facility] Comment:Result canceled by t he ancillary. ABS. NUCLEATED RBC'S CANCELED 0 cells/uL [facility] Comment:Result canceled by t he ancillary. SEG NEUTROPHILS 59 % [facility] BANDS CANCELED % [facility] Comment:Result canceled by t he ancillary. METAMYELOCYTES CANCELED % [facility] Comment:Result canceled by t he ancillary. MYELOCYTES CANCELED % [facility] Comment:Result canceled by t he ancillary. PROMYELOCYTES CANCELED % [facility] Comment:Result canceled by t he ancillary. LYMPHOCYTES 33.1 % [facility] REACTIVE LYMPHS CANCELED 0 - 10 % [facility] Comment:Result canceled by t he ancillary. MONOCYTES 5.8 % [facility] EOSINOPHILS 1.6 % [facility] BASOPHILS 0.5 % [facility] BLASTS CANCELED % [facility] Comment:Result canceled by t he ancillary. NRBC CANCELED 0 /100 WBC [facility] Comment:Result canceled by t he ancillary. CBC COMMENT CANCELED [facility] Comment:Result canceled by t he ancillary. 07/28/2020 9:08 AM REAL ESTATE SITE ANALYST 07/28/2020 9:11 AM REAL ESTATE SITE ANALYST Narrative [facility] - 07/31/2020 3:02 AM REAL ESTATE SITE ANALYST FASTING:YES FASTING: YES Saumya Wells SWITCHBOARD MECHANIC LABORATORY Final Res ult Performing Organization Address City/State/[facility] Co de Phone Number [facility] [address] [place] [address] * COLOGUARD ([employer]) (07/22/2020 7:25 AM REAL ESTATE SITE ANALYST) COLOGUARD RESULT Negative Not Applicable [facility] (CLIA #:[id number]) Comment: A negative result indicates a low [...] screened with both Cologuard and colonoscopy. (Jacky Santos al, N Engl J Med 2014;370(14):7627-8854) The normal value (reference range) for this assay is negative. COLOGUARD RE-SCREENING RECOMMENDATION: Periodic routine colorectal cancer screening is an important part of preventive healthcare for asymptomatic persons at average risk for colorectal cancer. Following a negative Cologuard result, the [place] Cancer Society and U.S. Multi-Society Task Force screening guidelines recommend a Cologuard re-screening interval of 3 years. References: [place] Cancer Society (ACS). Colorectal cancer prevention and early detection. [place], [place]: [place] Cancer Society; [updated 2015Oct 18]. https://www.cancer.org/cancer/odbvi-ksqlso-wdelzx/frzvyywtl-avfflcuqb-abubvss/ac s-rec ommendations.html. Accessed February 24, 2018; [place] DK, Laina MASTERS, Anabela BERNAL, Colorectal Cancer Screening: Recommendations for Physicians and Patients from the U.S. Multi-Society Task Force on Colorectal Cancer Screening, Am J Gastroenterology 2017; 112:1127-4337. TEST TYPE: Composite algorithmic analysis of stool [...] interval of every 3 years by the [place] Cancer Society and U.S. Multi-Society Task Force. [...] can be accessed at the following location: www.[employer]/results. Additional description of the Cologuard test process, warnings and precautions can be found at www.cologuardtest.com. Rx only. Stool specimen (specimen) STOOL SPECIMEN / Unknown 07/22/2020 7:25 AM REAL ESTATE SITE ANALYST 07/23/2020 10:32 AM REAL ESTATE SITE ANALYST Saumya Wells SWITCHBOARD MECHANIC BODY FLUIDS AND STOOLS OR DERABLES Final Result Performing Organization Address City/State/[facility] Co de Phone Number [facility] ([facility]) [address] [place] [place] [address], [facility] (CLIA #:[id number]) [address] [place] [place] [address] documented in this encounter Visit Diagnoses Diagnosis Encounter for routine adult health examination without abnormal findings- Primary Hyperlipidemia, unspecified hyperlipidemia type Vitamin D deficiency Unspecified vitamin D deficiency Hypothyroidism, unspecified type Screen for colon cancer Special screening for malignant neoplasms, colon Need for hepatitis C screening test Special screening examination for other specified viral diseases Anxiety and depression Dysthymic disorder Encounter for medical examination to establish care documented in this encounter Additional Health Concerns Assessment Noted Time PHQ-9 Depression Total Score: 5 07/07/19 21 2:33 PM REAL ESTATE SITE ANALYST documented as of this encounter Care Teams Furnace Keeper Relationship Specialty Start Date End Date Saumya Wells NP [address] [place] [address] PCP - General NURSE PRACTITIONER 07/02/20 documented as of this encounter
--- OUTSIDE RECORDS SUMMARY | 2024-06-16 17:17 | XMS_ITS | Encounter Summary ---
Author Organization [facility] Address [address] [place] [address]. [place] [address] Care Team Providers Care Alumni Coordinator Name Role Phone Saumya Wells NP Primary Care Provider [phone] [phone] Reason for Visit * Reason Comments Mammogram (SCAN) Encounter Details Date Type Department Care Team ([facility] Contact Info) Description 05/12/2021 Scan HEALTH INFO SRVCS Scanned, Documents Mammogram [...] on file Legal Sex Female 9:29 AM SWITCHMAN SUPERVISOR Gender Identity Not on file Sexual Orientation Not on file documented as of this encounter Plan of Treatment Not on file documented as of this encounter Procedures Procedure Name Priority Date/Time Associated Diagnosis Comments MAMMOGRAM GENERIC (SCAN ORDER) 05/12/2021 documented in this encounter Results * MAMMOGRAM GENERIC (05/12/2021) Anatomical Region Laterality Modality Other 05/12/2021 Narrative 05/12/2021 Ordered by an unspecified provider. us Documents Scanned SCANNING Final Result documented in this encounter Visit Diagnoses Not on filedocumented in this encounter Additional Health Concerns Assessment Noted Time PHQ-9 Depression Total Score: 5 07/07/19 21 2:33 PM SWITCHMAN SUPERVISOR documented as of this encounter Care Teams Alumni Coordinator Relationship Specialty Start Date End Date aSumya Wells NP [address] [place] [address] PCP - General NURSE PRACTITIONER 07/02/20 documented as of this encounter
--- OUTSIDE RECORDS SUMMARY | 2024-06-16 17:17 | XMS_ITS | Encounter Summary ---
Author Organization [facility] Address [address] [place] [address]. [place], [place] [address] [place] [address] Care Team Providers Care Panel Monitor Name Role Phone Saumya Wells SALES REVIEW CLERK Primary Care Provider [phone] [phone] Reason for Visit * Reason Onset Date Comments Lab Order 07/29/2020 add a1c to labs from yesterday Encounter Details Date Type Department Care Team (Late st Contact Info) Description 07/29/2020 Telephone [facility] Medical Group Family Medicine - [place] [address] [phone] Saumya Wells, SALES REVIEW CLERK [address] [id number] Lab Order (add a1c to labs from yesterday) Social History Tobacco Use Types Packs/Day Years [...] on file Legal Sex Female 9:29 AM SWIMMING TEACHER Gender Identity Not on file Sexual Orientation Not on file COVID-19 Exposure Response Date Recorded In the last month, have you been in contact with someone who was confirmed or suspected to have Coronavirus / COVID-19? No / Unsure 07/07/2020 1:56 PM SWIMMING TEACHER documented as of this encounter Progress Notes * Jory Francois LPN - 07/29/2020 1:24 PM CST [facility] to her labs she had done yesterday, Was told it was added MING TEACHER documented in this encounter Plan of Treatment Not on file documented as of this encounter Visit Diagnoses Not on filedocumented in this encounter Additional Health Concerns Assessment Noted Time PHQ-9 Depression Total Score: 5 07/07/19 21 2:33 PM SWIMMING TEACHER documented as of this encounter Care Teams Panel Monitor Relationship Specialty Start Date End Date Saumya Wells NP [address] [place] [address] PCP - General NURSE PRACTITIONER 07/02/20 documented as of this encounter
--- OUTSIDE RECORDS SUMMARY | 2024-06-16 17:17 | XMS_ITS | Encounter Summary ---
Author Organization [facility] Address [address] [place] [address]. [place], [place] [address] [place] [address] Care Team Providers Care Sports Leadership Instructor Name Role Phone Saumya Wells NP Primary Care Provider [phone] [phone] Reason for Visit * Reason Onset Date Comments Refill Request 05/18/2021 Encounter Details Date Type Department Care Team (Late st Contact Info) Description 05/18/2021 Telephone [facility] Medical Group Family Medicine - [place] [address] [phone] Saumya Wells NP [address] [place] [address] [place] [address] Refill Request Social History Tobacco Use Types [...] file Legal Sex Female 9:29 AM COMPUTER DISCOVERY TEACHER Gender Identity Not on file Sexual Orientation Not on file documented as of this encounter Progress Notes * Chris Aquino MA - 05/18/2021 11:15 AM CST Refill sent to pharmacy for 40mg, take 1 tablet daily UTER DISCOVERY TEACHER * Joanna Rivera - 05/18/2021 10:16 AM CST Her script for rosuvastatin 40 mg, She was given 15 tablets, Nemesio figured she was cutting themin half, but she taking the whole thing..She only has 2 tablets left. UTER DISCOVERY TEACHER documented in this encounter Plan of Treatment Not on file documented as of this encounter Visit Diagnoses Not on filedocumented in this encounter Additional Health Concerns Assessment Noted Time PHQ-9 Depression Total Score: 5 07/07/19 21 2:33 PM COMPUTER DISCOVERY TEACHER documented as of this encounter Care Teams Sports Leadership Instructor Relationship Specialty Start Date End Date Saumya Wells NP [address] [place] [address] PCP - General NURSE PRACTITIONER 07/02/20 documented as of this encounter
--- OUTSIDE RECORDS SUMMARY | 2024-06-16 17:17 | XMS_ITS | Encounter Summary ---
Author Organization [facility] Address [address] [place] [address]. [place], [place] [address] [place] [address] Care Team Providers Care Manhole Stripper Name Role Phone Saumya Wells NP Primary Care Provider [phone] [phone] Encounter Details Date Type Department Care Team (Late st Contact Info) Description 05/05/2021 baseclick Message Enc [facility] Medical Group Family Medicine - [place] [address] [facility] [address] [place], [place] [address] Saumya Wells NP [address] [place], [place] [address] Follow Up/Update Social History Tobacco Use Types Packs/Day Years [...] on file Legal Sex Female 9:29 AM FEED AND FARM MANAGEMENT ADVISER Gender Identity Not on file Sexual Orientation Not on file documented as of this encounter Plan of Treatment Not on file documented as of this encounter Visit Diagnoses Not on filedocumented in this encounter Additional Health Concerns Assessment Noted Time PHQ-9 Depression Total Score: 5 07/07/19 21 2:33 PM FEED AND FARM MANAGEMENT ADVISER documented as of this encounter Care Teams Manhole Stripper Relationship Specialty Start Date End Date Saumya Wells NP [address] [place] [address] PCP - General NURSE PRACTITIONER 07/02/20 documented as of this encounter
--- OUTSIDE RECORDS SUMMARY | 2024-06-16 17:17 | XMS_ITS | Encounter Summary ---
Author Organization [facility] Address [address] [place] [address]. [place], [place] [address] [place] [address] Care Team Providers Care Messenger Office Name Role Phone Saumya Wells NP Primary Care Provider [phone] [phone] Encounter Details Date Type Department Care Team (Late st Contact Info) Description 04/13/2021 Orders Only [facility] Medical Group Family Medicine - [place] [address] [facility] [address] [place] [phone] Saumya Wells NP [address] [place] [address] [place] [id number] Social History Tobacco Use Types Packs/Day Years [...] on file Legal Sex Female 9:29 AM COMMERCIAL LAWN SPECIALIST Gender Identity Not on file Sexual Orientation Not on file documented as of this encounter Progress Notes * Saumya Welsl NP - 04/13/2021 12:19 PM CDT Pt was intertested to begin Sertraline again. Pt will follow up in 2-3 weeks from starting. documented in this encounter Plan of Treatment Not on file documented as of this encounter Visit Diagnoses Diagnosis Anxiety and depression- Primary Dysthymic disorder documented in this encounter Additional Health Concerns Assessment Noted Time PHQ-9 Depression Total Score: 5 07/07/19 21 2:33 PM COMMERCIAL LAWN SPECIALIST documented as of this encounter Care Teams Messenger Office Relationship Specialty Start Date End Date Saumya Wells NP [address] [place] [address] [place] [address] PCP - General NURSE PRACTITIONER 07/02/20 documented as of this encounter
--- OUTSIDE RECORDS SUMMARY | 2024-06-16 17:17 | XMS_ITS | Encounter Summary ---
Author Organization [facility] [place] Address [address] [place] [address]. [place], [place] [address] [place] [address] Care Team Providers Care Mechanical Field Engineer Name Role Phone Saumya Wells NP Primary Care Provider [phone] [phone] Reason for Visit * Reason Comments Follow Up lab review Encounter Details Date Type Department Care Team (Late st Contact Info) Description 01/14/2021 8:20 AM CDT Telemedicine [facility] Medical Group Family Medicine - [place] [address] [phone] Saumya Wells NP [address] [phone] Follow Up (lab review) Social History Tobacco Use Types Packs/Day Years [...] Legal Sex Female 9:29 AM HEALTH AND WELLNESS MANAGER Gender Identity Not on file Sexual Orientation Not on file documented as of this encounter Progress Notes * Saumya Wells NP - 01/14/2021 8:20 AM CDT Reason for Visit: Follow Up (lab review) History of Present Illness: Evelia is a 50-year-old female with history of hypothyroidism, hyperlipidemia, anxiety and depression who presents for a video visit for her chronic disease follow-up and discuss her recent lab results. Pt reports has been doing well. She states she has lost approximate 20 pounds by watching her diet and has done intermittent fasting. She did make mention that she may want to begin sertraline again for her anxiety and depression. Was previously prescribed from her fire adjuster. She states some days she does feels down and depressed with lack of motivation. Denies any SI/HI. Has been to counseling but was not of much benefit for her. She also reviewed her recent labs and was wondering why her cholesterol had not improved much even with weight loss. She has not been exercising. Telemedicine Consent Discussed the following with the patient: The patient has chosen to receive care through the use oftelemedicine. Telemedicine enables health care providers at different locations to provided safe, effective, and convenient care through the use of technology. As with any health care service, there are risks associated with the use of telemedicine, including equipment failure, poor image resolution , and information security director issues. Patient also understands that a physical exam may not be able devin performed and the patient may need to come to the clinic to complete the assessment. Patient/Guardian consented to the use of telemedicine. Patient/Guardian verbally understands the risks and benefits of telemedicine as explained. All questions regarding telemedicine answered. Telemedicine Virtual Visit I introduced and identified myself, received verbal consent?? from the patient to proceed with thisvideo visit and made the patient aware that the same confidentiality and information security director practices apply. The patient joined the video visit from Home. I completed the virtual visit from Home. The following clinical staff helped with this visit MA: Chris Aquino. Medications: With history of hypothyroidism, hyperlipidemia, Current Outpatient Medications: ??? atorvastatin 40 MG tablet, Take 2 tablets (80 mg total) by mouth nightly at bedtime., Disp: 180tablet, Rfl: 1 ??? levothyroxine 100 MCG tablet, Take 100 mcg by mouth daily., Disp: , Rfl: Allergies Allergen Reactions ??? Penicillins Hives and Swelling Past Medical History: Diagnosis Date ??? Anxiety and depression ??? Colon cancer screening 06/2020 negative cologuard repeat in 3 years ??? Hyperlipidemia ??? Hypothyroidism OB History Para [...] Paternal Grandfather ROS: Review of Systems Constitutional: Positive for weight loss (intentional). Negative for chills, diaphoresis, fever andmalaise/fatigue. HENT: Negative for congestion, ear discharge, ear [...] abuse and suicidal ideas. The patient is nervous/anxious. The patient does not have insomnia. Physical Exam Constitutional: She is oriented to person, place, and time. She appears well- developed and well-nourished. No distress. Eyes: Pupils are equal, round, and reactive to light. EOM are normal. Neurological: She is alert and oriented to person, place, and time. Psychiatric: She has a normal mood and affect. Her behavior is normal. Judgment and thought contentnormal. (physical exam note done, video visit) There were no vitals filed for this visit. (vitals not taken, video visit) Screening forms: PHQ-9: PHQ-9: Over the last [...] with other people? somewhat difficult Assessment/Recommendations/Plan 1. Hyperthyroidism, unspecified type Patient currently takes 100 mcg of levothyroxine daily. Her recent TSH came back 0.24 with normal free T4. We will recheck level before making any medication adjustments. - THYROID STIM HORMONE, TSH; Future - THYROXINE, FREE (FT4); Future - FREE T3; Future 2. Hyperlipidemia, unspecified hyperlipidemia type Total cholesterol 213, HDL of 51, LDL of 130, triglycerides of 197, patient is currently taking atorvastatin 40 mg daily. Will increase to 80mg daily and recheck labs in 6 weeks. Will update med list.Pt is also encouraged to follow a healthy well balance diet low in saturated fat. Encourage exercise. Informed pt her elevated cholesterol can also be hereditary as she states her follow also suffersfrom high cholesterol. - COMPREHENSIVE METABOLIC PANEL; Future - LIPID PANEL; Future - atorvastatin 40 MG tablet; Take 2 tablets (80 mg total) by mouth nightly at bedtime. Dispense: 180 tablet; Refill: 1 3. Anxiety and depression -Patient may want to go back on Sertraline Discussed other options such as Wellbutrin is Wellbutrindoes not cause weight gain. She states her had a a reaction with use so she is kind of hesitant to try. She is going to follow-up with me in 6 weeks once her lab results are back to discuss further. Encourage following a low fat, low carb [...] vigorous activity.Discussed routine labs, preventative screenings, vaccinations, weight at today's visit. Follow up: 6 months Health Reminders Influenza- encourage yearly Tdap- encouraged Shingrix-encourage to get at local pharmacy Mammogram- 03/17/2020 up to date, normal findings, ordered from Dr. Wesley WWE/Pap- up to date, follows with Dr. Wesley Routine labs- 01/09/21 Weight- encourage weight loss SAUMYA WELLS NP 01/14/2021 9:02 AM Cosigned by Des Johnson MD at 01/14/2021 9:31 AM CDT documented in this encounter Plan of Treatment Not on file documented as of this encounter Procedures Procedure Name Priority Date/Time Associated Diagnosis Comments FREE T3 Routine 02/25/2021 8:07 AM CDT Hyperthyroidism COMPREHENSIVE METABOLIC PANEL Routine 02/25/2021 8:07 AM CDT Hyperlipidemia, unspecified hyperlipidemia type LIPID PANEL Routine 02/25/2021 8:07 AM CDT Hyperlipidemia, unspecified hyperlipidemia type THYROXINE, FREE (FT4) Routine 02/25/2021 8:07 AM CDT Hyperthyroidism THYROID STIM HORMONE TSH Routine 02/25/2021 8:07 AM CDT Hyperthyroidism documented in this encounter Results * (ABNORMAL) LIPID PANEL (02/25/2021 8:07 AM CDT) Pathologist [facility] CHOLESTEROL 203(H) <200 mg/dL [facility] HDL 49(L) > OR = 50 mg/dL [facility] TRIGLYCERIDES 200(H) <150 mg/dL [facility] Comment: If a non-fasting specimen was collected, consider repeat triglyceride testing on a fasting specimen if clinically indicated. João et al. J. of Clin. Lipidol. 2015;9:129-169. LDL (CALCULATED) 122(H) mg/dL (calc) [facility] Comment: Reference [...] LDL-C. Jayro SS et al. JULIETTE. 2013;310(19): 2041-1421 (http://education.Intcomex.KBLE/faq/WLB220) CHOL/HDL RATIO 4.1 <5.0 (calc) [facility] NON HDL CHOLESTEROL 154(H) <130 mg/dL (calc) [facility] Comment: For patients with diabetes plus 1 major ASCVD risk factor, treating to a non-HDL-C goal of <100 mg/dL (LDL-C of <70 mg/dL) is considered a therapeutic option. 02/25/2021 8:07 AM CDT 02/25/2021 8:08 AM CDT Narrative [facility] - 02/26/2021 5:04 AM CDT FASTING:YES FASTING: YES us Saumya Wells ELECTRONIC SECURITY SPECIALIST LABORATORY Final Res ult [facility] [address] [address] [place] [id number] * COMPREHENSIVE METABOLIC PANEL (02/25/2021 8:07 AM CDT) [facility] GLUCOSE 97 65 - 99 mg/dL [facility] [place] Comment: ? Fasting reference interval BUN 16 7 - 25 mg/dL [facility] [place] CREATININE S/P/B 0.91 0.50 - 1.05 mg/dL [facility] [place] Comment: For patients >49 years of age, the reference limit for Creatinine is approximately 13% higher for people identified as -Tristanian. EGFR NON-AFR. AMER. 73 > OR = 60 mL/min/1 .73m2 [facility] [place] EGFR AFR. AMER. 85 > OR = 60 mL/min/1 .73m2 [facility] [place] BUN CREATININE RATIO NOT APPLICABLE 6 - 22 (calc) [facility] [place] SODIUM S/P/B 142 135 - 146 mmol/L [facility] [place] POTASSIUM S/P/B 4.6 3.5 - 5.3 mmol/L [facility] [place] CHLORIDE S/P/B 107 98 - 110 mmol/L [facility] [place] CO2 26 20 - 32 mmol/L [facility] [place] CALCIUM S/P/B 9.6 8.6 - 10.4 mg/dL [facility] [place] TOTAL PROTEIN S/P/B 6.6 6.1 - 8.1 g/dL [facility] [place] ALBUMIN S/P/B 4.3 3.6 - 5.1 g/dL [facility] [place] GLOBULIN 2.3 1.9 - 3.7 g/dL (calc) [facility] [place] ALBUMIN/GLOBULIN RATIO 1.9 1.0 - 2.5 (calc) [facility] [place] BILIRUBIN TOTAL S/P/B 0.5 0.2 - 1.2 mg/dL [facility] [place] ALKALINE PHOSPHATASE S/P/B 100 37 - 153 U/L [facility] [place] AST 17 10 - 35 U/L [facility] [place] ALT 27 6 - 29 U/L [facility] [place] 02/25/2021 8:07 AM CDT 02/25/2021 8:08 AM CDT Narrative [facility] - 02/26/2021 5:04 AM CDT FASTING:YES FASTING: YES Saumya Wells ELECTRONIC SECURITY SPECIALIST LABORATORY Final Res ult Performing Organization Address [facility] de Phone Number [facility] [address] [place] [address] * FREE T3 (02/25/2021 8:07 AM CDT) FREE T3 2.8 2.3 - 4.2 pg/mL [facility] 02/25/2021 8:07 AM CDT 02/25/2021 8:08 AM CDT Narrative [facility] - 02/26/2021 5:04 AM CDT FASTING:YES FASTING: YES Saumya Wells ELECTRONIC SECURITY SPECIALIST LABORATORY Final Res ult Performing Organization Address [facility] de Phone Number [facility] [address] [place] [address] * THYROXINE, FREE (FT4) (02/25/2021 8:07 AM CDT) FREE T4 1.3 0.8 - 1.8 ng/dL [facility] 02/25/2021 8:07 AM CDT 02/25/2021 8:08 AM CDT Narrative [facility] - 02/26/2021 5:04 AM CDT FASTING:YES FASTING: YES Saumya Wells ELECTRONIC SECURITY SPECIALIST LABORATORY Final Res ult Performing Organization Address [facility] Co de Phone Number [facility] [address] [place] [address] * THYROID STIM HORMONE, TSH (02/25/2021 8:07 AM CDT) TSH 4.23 mIU/L [facility] Comment: ?Reference Range ?> or = 20 Years ??0.40-4.50 ? Ranges ?First trimester ?0.26-2.66 ?Second trimester ?? 0.55-2.73 ?Third trimester ?0.43-2.91 02/25/2021 8:07 AM CDT 02/25/2021 8:08 AM CDT Narrative [facility] - 02/26/2021 5:04 AM CDT FASTING:YES FASTING: YES us Saumya Wells NP LABORATORY Final Res ult Performing Organization Address City/State/[facility] Co de Phone Number [facility] [address] [place] [address] documented in this encounter Visit Diagnoses Diagnosis Hyperthyroidism- Primary Thyrotoxicosis without mention of goiter or other cause, without mention of thyrotoxic crisis or storm Hyperlipidemia, unspecified hyperlipidemia type Anxiety and depression Dysthymic disorder documented in this encounter Additional Health Concerns Assessment Noted Time PHQ-9 Depression Total Score: 5 07/07/19 21 2:33 PM HEALTH AND WELLNESS MANAGER documented as of this encounter Care Teams Mechanical Field Engineer Relationship Specialty Start Date End Date Saumya Wells NP [address] [place] [address] PCP - General NURSE PRACTITIONER 07/02/20 documented as of this encounter
--- OUTSIDE RECORDS SUMMARY | 2024-06-16 17:17 | XMS_ITS | Encounter Summary ---
Author Organization [facility] Address [address] [place] [address]. [place], [place] [address] [place] [address] Care Team Providers Care Laundry Agent Name Role Phone Saumya Wells NP Primary Care Provider [phone] [phone] Reason for Visit * Reason Onset Date Comments Returned Call 07/29/2020 informed of lab results Encounter Details Date Type Department Care Team (Late st Contact Info) Description 07/29/2020 Telephone [facility] Medical Group Family Medicine - [place] [address] [address] Saumya Wells NP [address] [place] [id number] Returned Call (informed of lab results) Social History Tobacco Use Types Packs/Day Years [...] on file Legal Sex Female 9:29 AM PENCILLER Gender Identity Not on file Sexual Orientation Not on file COVID-19 Exposure Response Date Recorded In the last month, have you been in contact with someone who was confirmed or suspected to have Coronavirus / COVID-19? No / Unsure 07/07/2020 1:56 PM PENCILLER documented as of this encounter Progress Notes * Saumya Wells NP - 07/29/2020 1:17 PM CST Called pt to inform of her lab results. Lipid panel showing LDL of 140, Triglycerides of 185, HDL of 50, total cholesterol of 222. Pt states her past pcp did increase her Atorvastatin from 20-40mg but she never began taking the new dose. I instructed her to begin and will recheck her lipid panel and Bmp in 6 weeks from increase dose. Encourage healthy eating, weight loss, and exercise. Fasting glucose 101. Will add on an A1C. HCG and HCT up by just a point. Will monitor for now. Vitamin D-normal range Hep C screen- negative TSH- normal range Lab [facility] for [facility]. ILLER documented in this encounter Plan of Treatment Not on file documented as of this encounter Visit Diagnoses Diagnosis Hyperlipidemia, unspecified hyperlipidemia type- Primary documented in this encounter Additional Health Concerns Assessment Noted Time PHQ-9 Depression Total Score: 5 07/07/19 2:33 PM PENCILLER documented as of this encounter Care Teams Laundry Agent Relationship Specialty Start Date End Date Saumya Wells NP [address] [place] [address] PCP - General NURSE PRACTITIONER 07/02/20 documented as of this encounter
== END 2024-06-11 07:23 | disposition home or self-care (01) ==
LOC: ANHIMG 07:24
PROVIDERS: PCP Nurse Practitioner; Visit Provider Obstetrics & Gynecology
DX: Z12.31 Encounter for screening mammogram for malignant neoplasm of breast (principal); R92.8 Other abnormal and inconclusive findings on diagnostic imaging of breast
CPT/HCPCS: 77063; 77067

== ENCOUNTER 2024-07-18 12:10 | Outpatient (CLI) | payer BC, SELFPAY ==
--- NOTE | ~2024-07-18 | MMUS_ITS ---
EXAMINATION: MM diagnostic jairo RT w francia, US breast RT limited HISTORY: Follow-up right breast asymmetry TECHNIQUE: Additional 3-D tomosynthesis images of the right breast were performed and synthetic 2-D i mages were generated. CAD analysis was submitted and interpreted. High resolution Limited right breas t ultrasound was performed. COMPARISON: Comparison to multiple prior studies sequentially, with oldest reviewed study dated 12/14. BREAST PARENCHYMAL COMPOSITION: Not dense: There are scattered areas of fibroglandular density. FINDINGS: MAMMOGRAPHIC FINDINGS: Focal asymmetry medially in the right breast on CC view is not apparent with spot compression or medi olateral views. No suspicious masses, calcifications or architectural distortion in the right breast to suggest malignancy. ULTRASOUND: Limited right breast ultrasound: At 3:00, 1 cm from the nipple there is a 3 mm cyst. No suspicious ma sses to suggest malignancy. IMPRESSION: 1. No evidence for malignancy in the right breast. 2. Routine yearly screening mammogram and regular clinical breast examination are recommended. BI-RADS Category 2: Benign finding(s). Reviewed, dictated and finalized at location A. [facility]ATER IMPRESSION: 1. No evidence for malignancy in the right breast. 2. Routine yearly screening mammogram and regular clinical breast examination a re recommended. BI-RADS Category 2: Benign finding(s).
== END 2024-07-18 12:11 | disposition home or self-care (01) ==
LOC: ANHIMG 12:14
PROVIDERS: PCP Nurse Practitioner; Visit Provider Obstetrics & Gynecology
DX: R92.8 Other abnormal and inconclusive findings on diagnostic imaging of breast (principal)
CPT/HCPCS: 76642; 77061; 77065; G0279